=== PATIENT | female | born 1945 | race Caucasian/White ===

== ENCOUNTER 2016-12-15 11:06 | Inpatient (IN) | payer MEDICARE ==
[~2016-12-15] VITALS: Ht 160 cm; Wt 78.0 kg
[~2016-12-15 11:06] MED LIST: GLIP5 PO; LORT5TAB PO; METF-324 PO
[2016-12-15 11:09] VITALS: BP 194/89; PULSE 108; RESP 20; TEMP 99.3; O2SAT 96
[2016-12-15] MEDS ORDERED: ONDANSETRON HCL 4 MG/2 ML VIAL IV PUSH ONE ×2 (12:00→13:15)
[2016-12-15] MEDS ORDERED: PROPOFOL 200 MG/20 ML AMP IV ONE (12:00)
--- NOTE | 2016-12-15 12:59 | RADRPT ---
EXAM DATE/TIME: 12/15/2016 12:25 [facility] COMPARISON: No previous studies available for comparison. INDICATIONS : Left foot pain, swelling, open sores, and inflammation. MEDICAL HISTORY : None. SURGICAL HISTORY : None. ENCOUNTER: Initial ACUITY: 2 weeks PAIN SCORE: 8/10 LOCATION: Left foot FINDINGS: AP, lateral and oblique views of the left foot were obtained and demonstrate diffuse soft tissue swel ling with numerous scattered gas bubbles mainly in the volar soft tissues of the mid and forefoot. Th ere are gas bubbles in the dorsum of the distal foot as well. There are multiple calcifications along the medial mid foot. There is no definite fracture or destructive change. Osteoarthritic changes are noted and there is mild osteopenia. There is a small spur off the inferior calcaneus. Vascular calci fications are present. CONCLUSION: 1. Soft tissue swelling in extensive gas in the soft tissues consistent with the known infection. 2. No definite destructive change or osteomyelitis. 3. Osteoarthritic change. Yousuf Walton MD on December 15, 2016 at 12:54 Board Certified Radiologist. This report was verified electronically.
[2016-12-15] MEDS ORDERED: SODIUM CHLOR 0.9% 1000 ML INJ 1,000 ML IV SCH ×2 (13:07→13:12)
[2016-12-15 13:08] LABS: ALT (GPT) 12 U/L (10-53); ANION GAP 17 MEQ/L (5-15); AST (GOT) 15 U/L (15-37); BICARBONATE 21.4 MEQ/L (21.0-32.0); BLOOD UREA NITROGEN 10 MG/DL (7-18); CHLORIDE 94 MEQ/L (98-107); GLOMERULAR FILTRATION RATE 125 ML/MIN (>89); SODIUM (NA) 132 MEQ/L (136-145)
[2016-12-15 13:10] LABS: POTASSIUM 2.9 MEQ/L (3.5-5.1)
[2016-12-15 13:11] LABS: BASOPHIL % 0.2 % (0.0-2.0); HEMATOCRIT 36.9 % (35.0-46.0); LYMPHOCYTE # 0.9 TH/MM3 (1.0-4.8); MEAN CELL VOLUME 82.5 FL (80.0-100.0); MEAN CORPUSCULAR HEMOGLOBIN 28.1 PG (27.0-34.0); MEAN CORPUSCULAR HGB CONC 34.1 % (32.0-36.0); MONO % 6.6 % (0.0-8.0); NEUT % 89.2 % (16.0-70.0); PLATELET COUNT 348 TH/MM3 (150-450); RED BLOOD COUNT 4.47 MIL/MM3 (4.00-5.30); RED CELL DISTRIBUTION WIDTH 13.7 % (11.6-17.2); WHITE BLOOD COUNT 22.4 TH/MM3 (4.0-11.0)
--- NOTE | 2016-12-15 13:11 | PD ---
HPI Chief Complaint: Injury Time Seen by Provider: 13:05 Travel History International Travel<30 days: No Contact w/Intl Traveler<30days: No Traveled to known affect area: No History of Present Illness HPI This is a 70-year-old female who presents for evaluation of left foot pain. She has had progressive pain, redness, swelling left foot for the past 2 weeks. She reports areas of blistering, drainage with foul smelling discharge. She denies any injury to the foot, no puncture wounds. She has been trying to keep the area clean by placing Neosporin and bandages on the foot. She has had occasional chills but she has not checked her temperature. She has no outside follow-up, no primary care physician. She lives alone according to her friend who is at bedside. She reports that she "procrastinated" in regards to infection. She endorses a history of "borderline diabetes" and denies any other significant past medical history. No other complaints. PFSH Past Medical History Blood Disorders: No Depression: Yes Cancer: No Diabetes: Yes Endocrine: No Genitourinary: No Hypertension: Yes Immune Disorder: Yes (MALARIA CHILDHOOD) Musculoskeletal: No Neurologic: No Respiratory: No Menopausal: Yes Past Surgical History Abdominal Surgery: Yes (GALLBLADDER) AICD: No Cholecystectomy: Yes Joint Replacement: No Pacemaker: No Social History Alcohol Use: No Tobacco Use: No Substance Use: No Allergies-Medications (Allergen,Severity, Reaction): Coded Allergies: Codeine (Verified Allergy, Severe, 03/31/08) Reported Meds & Prescriptions Reported Meds & Active Scripts Active No Active Prescriptions or Reported Medications Review of Systems Except as stated in HPI: all other systems reviewed are Neg Physical Exam Narrative GENERAL: This is a well-developed well-nourished female in no acute distress SKIN: Warm and dry. Examination of the left leg reveals marked erythema, soft tissue swelling to the left foot. There is a large ulcerated foul-smelling wound on the medial aspect of the left foot which is draining purulent discharge. Additional smaller ulcers are noted on the foot. There is no proximal streaking, no inguinal lymphadenopathy. HEAD: Atraumatic. Normocephalic. EYES: Pupils equal and round. No scleral icterus. No injection or drainage. ENT: No nasal bleeding or discharge. Mucous membranes pink and moist. NECK: Trachea midline. No JVD. CARDIOVASCULAR: Regular rate and rhythm. No murmur appreciated. RESPIRATORY: No accessory muscle use. Clear to auscultation. Breath sounds equal bilaterally. GASTROINTESTINAL: Abdomen soft, non-tender, nondistended. Hepatic and splenic margins not palpable. MUSCULOSKELETAL: No obvious deformities. Skin as noted above. Full range of motion of the lower extremities. Lower x-ray pulses are faintly palpable bilaterally however the feet are warm and the left dorsalis pedis and posterior tibial pulses are readily dopplerable. NEUROLOGICAL: Awake and alert. No obvious cranial nerve deficits. Motor grossly within normal limits. Normal speech. Data Data Last Documented VS Vital Signs Date Time Temp Pulse Resp B/P Pulse Ox O2 Delivery O2 Flow Rate FiO2 12/15/16 15:40 20 12/15/16 13:00 Room Air 12/15/16 11:09 99.3 108 194/89 96 Orders Comprehensive Metabolic Panel (12/15/16 12:22) Basic Metabolic Panel (Bmp) (12/15/16 12:22) Foot, Complete ([id number]) (12/15/16 ) Westergren Sedimentation Rate (12/15/16 12:22) C-Reactive Protein (Crp) (12/15/16 12:22) Complete Blood Count With Diff (12/15/16 12:56) Lactic Acid Sepsis Protocol (12/15/16 13:07) Blood Culture (12/15/16 13:07) Wound Culture And Gram Stain (12/15/16 13:07) Iv Access Insert/Monitor (12/15/16 13:07) Sodium Chlor 0.9% 1000 Ml Inj (Ns 1000 M (12/15/16 13:07) Morphine Inj (Morphine Inj) (12/15/16 13:15) Ondansetron Inj (Zofran Inj) (12/15/16 13:15) Vancomycin Inj (Vancomycin Inj) (12/15/16 13:15) Piperacil-Tazo 3.375 Gm Premix (Zosyn 3. (12/15/16 13:15) Beta Hydroxybutyrate (Acetone) (12/15/16 13:11) Sodium Chlor 0.9% 1000 Ml Inj (Ns 1000 M (12/15/16 13:12) Electrocardiogram (12/15/16 ) Ecg Monitoring (12/15/16 13:16) Potassium Chloride (Kcl) (12/15/16 13:30) Ampicillin-Sulbactam Inj (Unasyn Inj) (12/15/16 13:30) Clindamycin Inj (Cleocin Inj) (12/15/16 13:30) Mri Foot W&W/O Contrast (12/15/16 13:25) Blood Gas Venous (Vbg) (12/15/16 13:25) Potassium Chlor 10 Meq Premix (Kcl 10 Me (12/15/16 13:30) Iv Access Insert/Monitor (12/15/16 13:29) Gadodiamide Pf Inj (Omniscan Pf Inj) (12/15/16 14:35) Medical Practice Manager / Telemetry GURDEEP.Q8H (12/15/16 15:38) ^ Insert Iv (12/15/16 15:38) Sodium Chlor 0.9% 1000 Ml Inj (Ns 1000 M (12/15/16 15:38) Dext 5%-Nacl 0.9% 1000 Ml Inj (D5w-Ns 10 (12/15/16 15:38) Insulin Regular (Iv Infusion) (Novolin R (12/15/16 15:45) Potassium Chlor 40 Meq Premix (Kcl 40 Me (12/15/16 15:45) Potassium Chlor 40 Meq Premix (Kcl 40 Me (12/15/16 15:45) Potassium Chlor 20 Meq Premix (Kcl 20 Me (12/15/16 15:45) Potassium Chlor 20 Meq Premix (Kcl 20 Me (12/15/16 15:45) Potassium Chlor 20 Meq Premix (Kcl 20 Me (12/15/16 15:45) Potassium Chlor 20 Meq Premix (Kcl 20 Me (12/15/16 15:45) Potassium Chlor 20 Meq Premix (Kcl 20 Me (12/15/16 15:45) Potassium Chlor 20 Meq Premix (Kcl 20 Me (12/15/16 15:45) Sodium Bicarbonate 8.4% Inj (Sodium Bica (12/15/16 15:45) Sodium Bicarbonate 8.4% Inj (Sodium Bica (12/15/16 15:45) Sodium Phosphate Inj (Sodium Phosphate I (12/15/16 15:45) Hemoglobin (Hgb) A1c (12/15/16 15:38) Urinalysis - C+S If Indicated (12/15/16 15:38) Basic Metabolic Panel (Bmp) (12/15/16 20:38) Basic Metabolic Panel (Bmp) (12/16/16 02:38) Basic Metabolic Panel (Bmp) (12/16/16 08:38) Basic Metabolic Panel (Bmp) (12/16/16 14:38) Magnesium (Mg) (12/15/16 20:38) Magnesium (Mg) (12/16/16 02:38) Magnesium (Mg) (12/16/16 08:38) Magnesium (Mg) (12/16/16 14:38) Phosphorus (Po4) (12/15/16 20:38) Phosphorus (Po4) (12/16/16 02:38) Phosphorus (Po4) (12/16/16 08:38) Phosphorus (Po4) (12/16/16 14:38) Beta Hydroxybutyrate (Acetone) (12/16/16 02:38) Beta Hydroxybutyrate (Acetone) (12/16/16 14:38) Insulin Human Regular Inj (Novolin R Inj (12/15/16 15:45) Admit Order (Ed Use Only) (12/15/16 16:11) Consult Podiatry (12/15/16 ) Labs Laboratory Tests Test 12/15/16 12/15/16 12/15/16 12:28 13:40 13:41 White Blood Count 22.4 TH/MM3 Red Blood Count 4.47 MIL/MM3 Hemoglobin 12.6 GM/DL Hematocrit 36.9 % Mean Corpuscular Volume 82.5 FL Mean Corpuscular Hemoglobin 28.1 PG Mean Corpuscular Hemoglobin 34.1 % Concent Red Cell Distribution Width 13.7 % Platelet Count 348 TH/MM3 Mean Platelet Volume 9.0 FL Neutrophils (%) (Auto) 89.2 % Lymphocytes (%) (Auto) 4.0 % Monocytes (%) (Auto) 6.6 % Eosinophils (%) (Auto) 0.0 % Basophils (%) (Auto) 0.2 % Neutrophils # (Auto) 20.0 TH/MM3 Lymphocytes # (Auto) 0.9 TH/MM3 Monocytes # (Auto) 1.5 TH/MM3 Eosinophils # (Auto) 0.0 TH/MM3 Basophils # (Auto) 0.0 TH/MM3 CBC Comment AUTO DIFF Differential Total Cells 100 Counted Neutrophils % (Manual) 88 % Band Neutrophils % 3 % Lymphocytes % 5 % Monocytes % 3 % Neutrophils # (Manual) 20.6 TH/MM3 Myelocytes 1 % Differential Comment FINAL DIFF MANUAL Platelet Estimate NORMAL Platelet Morphology Comment NORMAL Red Cell Morphology Comment NORMAL Erythrocyte Sedimentation Rate 40 mm/hr Sodium Level 132 MEQ/L Potassium Level 2.9 MEQ/L Chloride Level 94 MEQ/L Carbon Dioxide Level 21.4 MEQ/L Anion Gap 17 MEQ/L Blood Urea Nitrogen 10 MG/DL Creatinine 0.49 MG/DL Estimat Glomerular Filtration 125 ML/MIN Rate Random Glucose 246 MG/DL Calcium Level 9.2 MG/DL Phosphorus Level 2.4 MG/DL Magnesium Level 2.1 MG/DL Total Bilirubin 0.9 MG/DL Aspartate Amino Transf 15 U/L (AST/SGOT) Alanine Aminotransferase 12 U/L (ALT/SGPT) Alkaline Phosphatase 168 U/L C-Reactive Protein 25.50 MG/DL Total Protein 7.4 GM/DL Albumin 2.6 GM/DL B-Hydroxybutyrate 5.62 MMOL/L Lactic Acid Level 1.5 mmol/L Blood Gas Puncture Site SWAN BESSIE LINE Blood Gas Patient Temperature 98.6 Venous Blood pH 7.39 Venous Blood Partial Pressure 35 mmHg CO2 Venous Blood Partial Pressure 30 mmHg O2 Venous Blood HCO3 20 mmol/L Venous Blood Oxygen Saturation 50 % Venous Blood Oxygen Content 9.1 Vol % Venous Blood Base Excess -3.7 mmol/L Oxygen Delivery Device ROOM AIR Blood Gas Inspired Oxygen 21 % [facility] Medical Decision Making Medical Screen Exam Complete: Yes Emergency Medical Condition: Yes Medical Record Reviewed: Yes Interpretation(s) CBC WBC 22.4 ESR 40 CMP sodium 132 potassium 2.9 and anion gap 17 glucose 246 Differential Diagnosis Osteomyelitis, cellulitis, necrotizing fasciitis, gangrene, peripheral vascular disease Narrative Course 70-year-old female with progressive redness, pain and swelling to the left foot. Examination reveals significant cellulitic changes, heart ulcerated area to the medial left foot which is draining purulent discharge. Initial lab work performed in triage has been sent. IV established, lactic acid, blood cultures , wound culture, beta hydroxybutyrate, bvg has been sent. 2 L IV fluids, IV vancomycin, Unasyn and clindamycin have been ordered. Morphine and Zofran have been ordered. Ultimately the patient will require admission for this significant foot infection. 1325: I immediately paged truss assembler Dr. Nunez and discuss our concern for necrotizing fasciitis versus osteomyelitis and he would like to be called back with the MRI results. The MRI is ordered stat. After the MRI result and I spoke with Dr. Nunez who is coming to evaluate the patient. Her laboratory evaluation does reveal that she is in DKA with an anion gap of 17, beta hydroxybutyrate of 5.62, normal lactic acid, normal bicarbonate, normal pH. She also has sepsis with tachycardia, but blood cell count 22.4. DKA protocol was initiated, insulin bolus was held because the patient is currently hypokalemic. I discussed with the critical care doctor Arden who is agreeable with admission. Sepsis Criteria SIRS Criteria (2 or more): Heart rate over 90 Sepsis Criteria (SIRS+source): Infect source susp/known Criteria Outcome: Meets sepsis criteria Diagnosis Primary Impression: Necrotizing cellulitis Additional Impressions: Osteomyelitis Qualified Code: M86.9 - Osteomyelitis, unspecified site, unspecified type Sepsis Qualified Code: A41.9 - Sepsis, due to unspecified organism DKA (diabetic ketoacidoses) Qualified Code: E13.10 - Diabetic ketoacidosis without coma associated with other specified diabetes mellitus Hypokalemia Admitting Information Admitting Physician Requests: Admit Scripts No Active Prescriptions or Reported Meds Chris Triana December 15, 2016 13:11
[2016-12-15] MEDS ORDERED: VANCOMYCIN INJ 1,000 MG in SODIUM CHLOR 0.9% 250 ML INJ 250 ML IV ONE (13:15)
[2016-12-15] MEDS ORDERED: PIPERACIL-TAZO 3.375 GM PREMIX 50 ML IV ONE (13:15)
[2016-12-15] MEDS ORDERED: MORPHINE SULFATE 4 MG/ML INJ IV PUSH ONE (13:15)
[2016-12-15 13:18] LABS: ALKALINE PHOSPHATASE 168 U/L (45-117); TOTAL BILIRUBIN ADULT 0.9 MG/DL (0.2-1.0)
[2016-12-15 13:19] LABS: HEMO FLAGS AUTO DIFF
--- NOTE | 2016-12-15 13:22 | PD ---
Data Data Last Documented VS Vital Signs Date Time Temp Pulse Resp B/P Pulse Ox O2 Delivery O2 Flow Rate FiO2 12/15/16 13:00 Room Air 12/15/16 11:09 99.3 108 20 194/89 96 Orders Comprehensive Metabolic Panel (12/15/16 12:22) Basic Metabolic Panel (Bmp) (12/15/16 12:22) Foot, Complete ([id number]) (12/15/16 ) Westergren Sedimentation Rate (12/15/16 12:22) C-Reactive Protein (Crp) (12/15/16 12:22) Complete Blood Count With Diff (12/15/16 12:56) Lactic Acid Sepsis Protocol (12/15/16 13:07) Blood Culture (12/15/16 13:07) Wound Culture And Gram Stain (12/15/16 13:07) Iv Access Insert/Monitor (12/15/16 13:07) Sodium Chlor 0.9% 1000 Ml Inj (Ns 1000 M (12/15/16 13:07) Morphine Inj (Morphine Inj) (12/15/16 13:15) Ondansetron Inj (Zofran Inj) (12/15/16 13:15) Vancomycin Inj (Vancomycin Inj) (12/15/16 13:15) Piperacil-Tazo 3.375 Gm Premix (Zosyn 3. (12/15/16 13:15) Beta Hydroxybutyrate (Acetone) (12/15/16 13:11) Sodium Chlor 0.9% 1000 Ml Inj (Ns 1000 M (12/15/16 13:12) Electrocardiogram (12/15/16 ) Ecg Monitoring (12/15/16 13:16) Potassium Chloride (Kcl) (12/15/16 13:30) Ampicillin-Sulbactam Inj (Unasyn Inj) (12/15/16 13:30) Clindamycin Inj (Cleocin Inj) (12/15/16 13:30) Mri Foot W&W/O Contrast (12/15/16 13:25) Blood Gas Venous (Vbg) (12/15/16 13:25) Potassium Chlor 10 Meq Premix (Kcl 10 Me (12/15/16 13:30) Iv Access Insert/Monitor (12/15/16 13:29) Gadodiamide Pf Inj (Omniscan Pf Inj) (12/15/16 14:35) [place] Hold / Telemetry GURDEEP.Q8H (12/15/16 15:38) ^ Insert Iv (12/15/16 15:38) Diet Npo (12/15/16 Dinner) Sodium Chlor 0.9% 1000 Ml Inj (Ns 1000 M (12/15/16 15:38) Dext 5%-Nacl 0.9% 1000 Ml Inj (D5w-Ns 10 (12/15/16 15:38) Insulin Regular (Iv Infusion) (Novolin R (12/15/16 15:45) Potassium Chlor 40 Meq Premix (Kcl 40 Me (12/15/16 15:45) Potassium Chlor 40 Meq Premix (Kcl 40 Me (12/15/16 15:45) Potassium Chlor 20 Meq Premix (Kcl 20 Me (12/15/16 15:45) Potassium Chlor 20 Meq Premix (Kcl 20 Me (12/15/16 15:45) Potassium Chlor 20 Meq Premix (Kcl 20 Me (12/15/16 15:45) Potassium Chlor 20 Meq Premix (Kcl 20 Me (12/15/16 15:45) Potassium Chlor 20 Meq Premix (Kcl 20 Me (12/15/16 15:45) Potassium Chlor 20 Meq Premix (Kcl 20 Me (12/15/16 15:45) Sodium Bicarbonate 8.4% Inj (Sodium Bica (12/15/16 15:45) Sodium Bicarbonate 8.4% Inj (Sodium Bica (12/15/16 15:45) Sodium Phosphate Inj (Sodium Phosphate I (12/15/16 15:45) Hemoglobin (Hgb) A1c (12/15/16 15:38) Urinalysis - C+S If Indicated (12/15/16 15:38) Basic Metabolic Panel (Bmp) (12/15/16 20:38) Basic Metabolic Panel (Bmp) (12/16/16 02:38) Basic Metabolic Panel (Bmp) (12/16/16 08:38) Basic Metabolic Panel (Bmp) (12/16/16 14:38) Magnesium (Mg) (12/15/16 20:38) Magnesium (Mg) (12/16/16 02:38) Magnesium (Mg) (12/16/16 08:38) Magnesium (Mg) (12/16/16 14:38) Phosphorus (Po4) (5/6/17 20:38) Phosphorus (Po4) (12/16/16 02:38) Phosphorus (Po4) (12/16/16 08:38) Phosphorus (Po4) (12/16/16 14:38) Beta Hydroxybutyrate (Acetone) (12/16/16 02:38) Beta Hydroxybutyrate (Acetone) (12/16/16 14:38) Insulin Human Regular Inj (Novolin R Inj (12/15/16 15:45) Admit Order (Ed Use Only) (12/15/16 16:11) Consult Podiatry (12/15/16 ) Labs Laboratory Tests Test 12/15/16 12/15/16 12/15/16 12:28 13:40 13:41 White Blood Count 22.4 TH/MM3 Red Blood Count 4.47 MIL/MM3 Hemoglobin 12.6 GM/DL Hematocrit 36.9 % Mean Corpuscular Volume 82.5 FL Mean Corpuscular Hemoglobin 28.1 PG Mean Corpuscular Hemoglobin 34.1 % Concent Red Cell Distribution Width 13.7 % Platelet Count 348 TH/MM3 Mean Platelet Volume 9.0 FL Neutrophils (%) (Auto) 89.2 % Lymphocytes (%) (Auto) 4.0 % Monocytes (%) (Auto) 6.6 % Eosinophils (%) (Auto) 0.0 % Basophils (%) (Auto) 0.2 % Neutrophils # (Auto) 20.0 TH/MM3 Lymphocytes # (Auto) 0.9 TH/MM3 Monocytes # (Auto) 1.5 TH/MM3 Eosinophils # (Auto) 0.0 TH/MM3 Basophils # (Auto) 0.0 TH/MM3 CBC Comment AUTO DIFF Differential Total Cells 100 Counted Neutrophils % (Manual) 88 % Band Neutrophils % 3 % Lymphocytes % 5 % Monocytes % 3 % Neutrophils # (Manual) 20.6 TH/MM3 Myelocytes 1 % Differential Comment FINAL DIFF MANUAL Platelet Estimate NORMAL Platelet Morphology Comment NORMAL Red Cell Morphology Comment NORMAL Erythrocyte Sedimentation Rate 40 mm/hr Sodium Level 132 MEQ/L Potassium Level 2.9 MEQ/L Chloride Level 94 MEQ/L Carbon Dioxide Level 21.4 MEQ/L Anion Gap 17 MEQ/L Blood Urea Nitrogen 10 MG/DL Creatinine 0.49 MG/DL Estimat Glomerular Filtration 125 ML/MIN Rate Random Glucose 246 MG/DL Calcium Level 9.2 MG/DL Total Bilirubin 0.9 MG/DL Aspartate Amino Transf 15 U/L (AST/SGOT) Alanine Aminotransferase 12 U/L (ALT/SGPT) Alkaline Phosphatase 168 U/L C-Reactive Protein 25.50 MG/DL Total Protein 7.4 GM/DL Albumin 2.6 GM/DL B-Hydroxybutyrate 5.62 MMOL/L Lactic Acid Level 1.5 mmol/L Blood Gas Puncture Site SWAN BESSIE LINE Blood Gas Patient Temperature 98.6 Venous Blood pH 7.39 Venous Blood Partial Pressure 35 mmHg CO2 Venous Blood Partial Pressure 30 mmHg O2 Venous Blood HCO3 20 mmol/L Venous Blood Oxygen Saturation 50 % Venous Blood Oxygen Content 9.1 Vol % Venous Blood Base Excess -3.7 mmol/L Oxygen Delivery Device ROOM AIR Blood Gas Inspired Oxygen 21 % MDM Supervised Visit with JACKELYN: Yes Narrative Course Patient seen and examined by me at 1320. Patient has a very advanced infection of her left foot. My concern is for necrotizing fasciitis. Chris Triana has called and discussed with podiatry at this time Dr. Nunez is in route. An MRI has been ordered. Vancomycin Unasyn and clindamycin of been ordered at this time. Lactic acid is pending. She has obvious need for admission and may need emergent surgery. Labs return and the patient does have some mild DKA, hypokalemia, and sepsis criteria. She was started on multiple antibiotics as above. Dr. Nunez and Dr. Rasheed have arrived at the bedside bladder which to admit the patient. DKA protocol is been ordered. The plan is to take the operating room for procedure with Dr. Nunez. Patient remains in fair condition at this time. Procedures Procedure Narrative Aggregate critical care time was 31 minutes. Time to perform other separately billable procedures was not included in the critical care time. My time did not include minutes spent treating any other patients simultaneously or on activities that did not directly contribute to the patient's treatment. The services I provided to this patient were to treat and/or prevent clinically significant deterioration that could result in: , disability, organ failure, amputation. I provided critical care services requiring my management, as noted below: Chart data review, documentation time, medication orders and management, vital sign assessments/reviewing monitor data, ordering and reviewing lab tests, ordering and interpreting/reviewing x-rays and diagnostic studies, care of the patient and discussion of the patient with the admitting physicians. Diagnosis Primary Impression: Sepsis Qualified Code: A41.9 - Sepsis, due to unspecified organism Additional Impressions: Gas gangrene of foot Osteomyelitis Qualified Code: M86.9 - Osteomyelitis, unspecified site, unspecified type Necrotizing cellulitis DKA (diabetic ketoacidoses) Qualified Code: E13.10 - Diabetic ketoacidosis without coma associated with other specified diabetes mellitus Admitting Information Admitting Physician Requests: Admit Scripts No Active Prescriptions or Reported Meds Condition: Kamaljit Prater MD December 15, 2016 13:22
[2016-12-15] MEDS ORDERED: CLINDAMYCIN INJ 600 MG in SODIUM CHLORIDE 0.9% INJ 100 ML IV ONE (13:30)
[2016-12-15] MEDS ORDERED: POTASSIUM CHLOR 10 MEQ PREMIX 100 ML IV ONE (13:30)
[2016-12-15] MEDS ORDERED: POTASSIUM CHLORIDE 20 MEQ CONTROLLED RELEASE TAB PO ONE (13:30)
[2016-12-15] MEDS ORDERED: AMPICILLIN-SULBACTAM INJ 3 GM in SODIUM CHLORIDE 0.9% INJ 100 ML IV ONE (13:30)
[2016-12-15 13:51] LABS: BLOOD GAS VENOUS BASE EXCESS -3.7 mmol/L (-2-2); BLOOD GAS VENOUS HCO3 20 mmol/L (22-26); BLOOD GAS VENOUS O2 CONTENT 9.1 Vol % (9.0-17.0); BLOOD GAS VENOUS O2 HGB SAT 50 % (70-76); BLOOD GAS VENOUS PCO2 35 mmHg (44-48); BLOOD GAS VENOUS PO2 30 mmHg (35-40); BLOOD GAS VENOUS pH 7.39 (7.360-7.400); CRITICAL VALUE NO; DRAW SITE SWAN GANZ LINE; FIO2 21 %; OXYGEN DEVICE ROOM AIR; STAT YES; TEMP CORR TO 98.6
[2016-12-15 13:59] LABS: BANDS 3 % (0-6); MYELOCYTES 1 % (0-0); NEUTROPHIL # MANUAL DIFF 20.6 TH/MM3 (1.8-7.7); PLATELET ESTIMATE SMEAR NORMAL (NORMAL); PLATELET MORPHOLOGY NORMAL (NORMAL); POLYS (SEG NEUTROPHILS) 88 % (16-70); SCAN/DIFF FINAL DIFF MANUAL; WBC DIFF SAMPLE 100
[2016-12-15] MEDS ORDERED: GADODIAMIDE PF 287 MG/ML 20 ML VIAL (for RAD MRI) IV ONE (14:35)
--- NOTE | 2016-12-15 15:37 | RADRPT ---
EXAM DATE/TIME: 12/15/2016 14:22 [facility] COMPARISON: No previous studies available for comparison. INDICATIONS : Infected left foot. Plantar surface. CONTRAST: 14 cc Omniscan (gadodiamide) IV MEDICAL HISTORY : None. SURGICAL HISTORY : Cholecystectomy. ENCOUNTER: Initial ACUITY: 2 weeks PAIN SCORE: 2/10 LOCATION: Left foot. TECHNIQUE: Multiplanar, multisequence MRI examination was performed without contrast and after the intravenous a dministration of gadolinium. FINDINGS: There is extensive gas in the soft tissues of the foot involving the forefoot between the toes and ex tending proximally to the mid foot predominantly on the plantar aspect. There is soft tissue ulcerati on on the plantar aspect of the foot medially. No drainable fluid collections are present in the foot . These gas collections are associated with extensive soft tissue enhancement and edema characteristi c of a necrotizing cellulitis. In addition, there is abnormal marrow edema and enhancement of the hea d of the fifth metatarsal and to a lesser extent of the fourth metatarsal characteristic of osteomyel itis. There is also abnormal marrow signal in the proximal phalanx of the fifth toe, probably osteomy elitis. Abnormal marrow signal middle phalanx second toe is probably related to remote fracture when correlat ed with plain film. 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 CONCLUSION: 1. Soft tissue ulceration and numerous gas collections in the soft tissues of the forefoot and midfoo t most characteristic of a necrotizing type cellulitis. 2. Osteomyelitis of the distal fourth and fifth metatarsals and possibly the proximal phalanx of the fifth toe. Remote fracture second toe. 3. No drainable fluid collections within the foot. Blair Franklin MD on December 15, 2016 at 15:27 Board Certified Radiologist. This report was verified electronically.
[2016-12-15] MEDS ORDERED: SODIUM PHOSPHATE INJ 15 MMOL in SODIUM CHLORIDE 0.9% INJ 100 ML IV PRN ×2 (15:45→17:00)
[2016-12-15] MEDS ORDERED: SODIUM BICARBONATE 8.4% SOLN 50 MEQ/50 ML VIAL IV PRN ×2 (15:45)
[2016-12-15] MEDS ORDERED: POTASSIUM CHLOR 40 MEQ PREMIX 100 ML IV PRN ×2 (15:45)
[2016-12-15] MEDS ORDERED: INSULIN HUMAN REGULAR 1,000 UNITS/10 ML VIAL IV PUSH ONE (15:45)
[2016-12-15] MEDS ORDERED: POTASSIUM CHLOR 20 MEQ PREMIX 100 ML IV PRN ×9 (15:45→17:00)
[2016-12-15] MEDS ORDERED: INSULIN REGULAR (IV INFUSION) 100 UNITS in SODIUM CHLORIDE 0.9% INJ 99 ML IV SCH (15:45)
[2016-12-15] MEDS: SODIUM CHLOR 0.9% 1000 ML INJ 1,000 ML IV SCH ×4 (16:30→22:33)
[2016-12-15] MEDS: POTASSIUM CHLOR 20 MEQ PREMIX 100 ML IV PRN ×3 (16:31→22:07)
--- NOTE | 2016-12-15 16:47 | PD.POD.CON ---
Patient Intake Chief Complaint Diabetic foot infection left foot Consult Requested by [facility] emergency department doctors Reason for Consult Surgical management of gas gangrene left foot Primary Care Physician No Primary Care Physician History of Present Illness Patient is a 70-year-old diabetic female who presented to the emergency department at [place] with a hot red swollen foot. She states about a month ago she noticed an open area that was draining on her foot. She did not treat it. The area has gotten worse. She is not been feeling well and came to the ED today. She is currently in DKA. With a white count of greater than 20 to. Radiographs and MRI shows gas gangrene of the soft tissue of the foot. The MRI also shows possible osteomyelitis of the fourth and fifth metatarsal. Coded Allergies: Codeine (Verified Allergy, Severe, 03/31/08) Preferred Language to Discuss: Romanian Barriers to Learning: None Teaching Method: Discussion Vital Signs Date Time Temp Pulse Resp B/P Pulse Ox O2 Delivery O2 Flow Rate FiO2 12/15/16 13:00 Room Air 12/15/16 11:09 99.3 108 20 194/89 96 Room Air Pain scale used: 0-10 numeric scale Pain score: 2 Medications Current Medications Sodium Chloride (NS 1000 ml Inj) 1,000 ml @ 1,000 mls/hr Q1H IV Last administered on 12/15/16 15:29; Start 12/15/16 at 13:07; Stop 12/15/16 at 14:06; Status DC Morphine Sulfate (Morphine Inj) 4 mg ONCE ONCE IV PUSH Last administered on 15:30; Start 12/15/16 at 13:15; Stop 12/15/16 at 13:16; Status DC Ondansetron HCl 4 mg 4 mg ONCE ONCE IV PUSH Last administered on 12/15/16 15: 29; Start 12/15/16 at 13:15; Stop 12/15/16 at 13:16; Status DC Vancomycin HCl 1000 mg/Sodium Chloride 250 ml @ 250 mls/hr ONCE ONCE IV ; Start 12/15/16 at 13:15; Stop 12/15/16 at 14:14; Status DC Piperacillin Sod/ Tazobactam Sod 50 ml @ 100 mls/hr ONCE ONCE IV ; Start at 13:15; Stop 12/15/16 at 13:23; Status DC Sodium Chloride (NS 1000 ml Inj) 1,000 ml @ 1,000 mls/hr Q1H IV Last administered on 12/15/16 15:29; Start 12/15/16 at 13:12; Stop 12/15/16 at 14:11; Status DC Potassium Chloride 40 meq 40 meq ONCE ONCE PO Last administered on 12/15/16 15 :20; Start 12/15/16 at 13:30; Stop 12/15/16 at 13:31; Status DC Ampicillin Sodium/ Sulbactam Sodium 3 gm/Sodium Chloride 100 ml @ 200 mls/hr ONCE ONCE IV Last administered on 12/15/16 15:05; Start 12/15/16 at 13:30; Stop 12/15/16 at 13:59; Status DC Clindamycin Phosphate 600 mg/ Sodium Chloride 104 ml @ 208 mls/hr ONCE ONCE IV Last administered on 12/15/16 15:30; Start 12/15/16 at 13:30; Stop 12/15/16 at 13:59; Status DC Potassium Chloride (KCl 10 Meq Premix Inj) 100 ml @ 100 mls/hr BOLUS ONCE IV Last administered on 12/15/16 15:50; Start 12/15/16 at 13:30; Stop 12/15/16 at 15: 55; Status DC Gadodiamide 14 ml 14 ml STK-MED ONCE IV Last administered on 12/15/16 14:35; Start 12/15/16 at 14:35; Stop 12/15/16 at 14:36; Status DC Sodium Chloride 1,000 ml @ 250 mls/hr Q4H IV ; Start 12/15/16 at 15:38 Dextrose/Sodium Chloride 1,000 ml @ 200 mls/hr Q5H IV ; Start 12/15/16 at 15:38 Insulin Human Regular 100 units/ Sodium Chloride 100 ml @ 0 mls/hr TITRATE IV ; Start 12/15/16 at 15:45 Potassium Chloride 100 ml @ 100 mls/hr Q1H PRN IV SEE LABEL COMMENTS; Start at 15:45 Potassium Chloride 100 ml @ 50 mls/hr Q2H PRN IV SEE LABEL COMMENTS; Start 12/15/16 at 15:45 Potassium Chloride 100 ml @ 100 mls/hr Q1H PRN IV SEE LABEL COMMENTS Last administered on 5/6/17at 16:31; Start 12/15/16 at 15:45 Potassium Chloride 100 ml @ 100 mls/hr Q1H PRN IV SEE LABEL COMMENTS; Start at 15:45 Potassium Chloride 100 ml @ 50 mls/hr Q2H PRN IV SEE LABEL COMMENTS; Start 12/15/16 at 15:45 Potassium Chloride 100 ml @ 50 mls/hr Q2H PRN IV SEE LABEL COMMENTS; Start 12/15/16 at 15:45 Potassium Chloride 100 ml @ 50 mls/hr Q2H PRN IV SEE LABEL COMMENTS; Start 12/15/16 at 15:45 Potassium Chloride (KCl 20 Meq Premix Inj) 100 ml @ 50 mls/hr Q2H PRN IV SEE LABEL COMMENTS; Start 12/15/16 at 15:45 Sodium Bicarbonate (Sodium Bicarbonate 8.4% Inj) 100 meq UNSCH PRN IV SEE LABEL COMMENTS; Start 12/15/16 at 15:45 Sodium Bicarbonate 50 meq 50 meq UNSCH PRN IV SEE LABEL COMMENTS; Start at 15:45 Sodium Phosphate/ Sodium Chloride (Sodium Phosphate Inj/NS Inj) 105 ml @ 25 mls /hr UNSCH PRN IV SEE LABEL COMMENTS; Start 12/15/16 at 15:45 Insulin Human Regular (NovoLIN R INJ) 5 units BOLUS ONCE IV PUSH ; Start at 15:45; Stop 12/15/16 at 15:51; Status DC Past, Family & Social History Past Medical History PFSH Reviewed: Yes Endocrine: REPORTS HX OF: Diabetes mellitus Review of Systems Constitutional: COMPLAINS OF: Pain Musculoskeletal: COMPLAINS OF: Joint pain/swell/dysarthr, Deformaties Exam-Podiatry Constitutional General appearance: uncomfortable Nutritional status: normal Orientation: alert and oriented x3 Dermatological Exam Skin Temp - Right: Within Normal Limits Skin Texture - Right: Within Normal Limits Skin Elasticity - Right: Within Normal Limits Skin Tugor - Right: Within Normal Limits Hair Growth - Right: Within Normal Limits Pigmentation - Right: Within Normal Limits Skin Temp - Left: Hot Skin Texture - Left: Shiny Skin Elasticity - Left: Abnormal Skin Tugor - Left: Abnormal Hair Growth - Left: Absent Pigmentation - Left: Abnormal Present on left: Abscess, Vesicles Ulcers: Location/Measurements Patient has multiple foul-smelling ulcerations of the left foot. There is tense bulla in the arch of the foot. Vascular/Lymphatic Exam Details Unable to feel pulses because of the swelling and fasciitis Neurologic Exam Details Deferred Lab and Radiology Results Laboratory Laboratory Tests Test 12/15/16 12:28 White Blood Count 22.4 TH/MM3 Red Blood Count 4.47 MIL/MM3 Hemoglobin 12.6 GM/DL Hematocrit 36.9 % Mean Corpuscular Volume 82.5 FL Mean Corpuscular Hemoglobin 28.1 PG Mean Corpuscular Hemoglobin 34.1 % Concent Red Cell Distribution Width 13.7 % Platelet Count 348 TH/MM3 Mean Platelet Volume 9.0 FL Neutrophils (%) (Auto) 89.2 % Lymphocytes (%) (Auto) 4.0 % Monocytes (%) (Auto) 6.6 % Eosinophils (%) (Auto) 0.0 % Basophils (%) (Auto) 0.2 % Neutrophils # (Auto) 20.0 TH/MM3 Lymphocytes # (Auto) 0.9 TH/MM3 Monocytes # (Auto) 1.5 TH/MM3 Eosinophils # (Auto) 0.0 TH/MM3 Basophils # (Auto) 0.0 TH/MM3 CBC Comment AUTO DIFF Differential Total Cells 100 Counted Neutrophils % (Manual) 88 % Band Neutrophils % 3 % Lymphocytes % 5 % Monocytes % 3 % Neutrophils # (Manual) 20.6 TH/MM3 Myelocytes 1 % Differential Comment FINAL DIFF MANUAL Platelet Estimate NORMAL Platelet Morphology Comment NORMAL Red Cell Morphology Comment NORMAL Erythrocyte Sedimentation Rate 40 mm/hr Laboratory Tests Test 12/15/16 12/15/16 12:28 13:40 Sodium Level 132 MEQ/L Potassium Level 2.9 MEQ/L Chloride Level 94 MEQ/L Carbon Dioxide Level 21.4 MEQ/L Anion Gap 17 MEQ/L Blood Urea Nitrogen 10 MG/DL Creatinine 0.49 MG/DL Estimat Glomerular Filtration 125 ML/MIN Rate Random Glucose 246 MG/DL Calcium Level 9.2 MG/DL Total Bilirubin 0.9 MG/DL Aspartate Amino Transf 15 U/L (AST/SGOT) Alanine Aminotransferase 12 U/L (ALT/SGPT) Alkaline Phosphatase 168 U/L C-Reactive Protein 25.50 MG/DL Total Protein 7.4 GM/DL Albumin 2.6 GM/DL Lactic Acid Level 1.5 mmol/L Microbiology Date/Time Procedure Status Source Growth 12/15/16 13:30 Gram Stain - Final Resulted Wound Foot 12/15/16 13:30 Wound Culture Resulted Wound Foot Pending 12/15/16 13:40 Aerobic Blood Culture Received Blood Peripheral Pending 12/15/16 13:40 Anaerobic Blood Culture Received Blood Peripheral Pending 12/15/16 13:40 Aerobic Blood Culture Received Blood Peripheral Pending 12/15/16 13:40 Anaerobic Blood Culture Received Blood Peripheral Pending Radiology Last Impressions Foot MRI 12/15/16 1325 Signed Impressions: Service Date/Time: Thursday, December 15, 2016 14:22 - CONCLUSION: 1. Soft tissue ulceration and numerous gas collections in the soft tissues of the forefoot and midfoot most characteristic of a necrotizing type cellulitis. 2. Osteomyelitis of the distal fourth and fifth metatarsals and possibly the proximal phalanx of the fifth toe. Remote fracture second toe. 3. No drainable fluid collections within the foot. Blair Franklin MD Foot X-Ray 12/15/16 0000 Signed Impressions: Service Date/Time: Thursday, December 15, 2016 12:25 - CONCLUSION: 1. Soft tissue swelling in extensive gas in the soft tissues consistent with the known infection. 2. No definite destructive change or osteomyelitis. 3. Osteoarthritic change. Yousuf Walton MD Assessment/Plan Problem List: (1) Necrotizing cellulitis Status: Acute (2) Osteomyelitis Status: Acute (3) Sepsis Status: Acute (4) DKA (diabetic ketoacidoses) Status: Acute (5) Abscess of foot Status: Acute (6) Diabetic infection of left foot Status: Acute (7) Gas gangrene of foot Status: Acute Additional Plans & Procedures PLAN: Patient will be taken to the OR immediately for incision and drainage of gas gangrene and necrotizing fasciitis. We will address the possibilities of the fourth and fifth metatarsal osteomyelitis later. She is at high risk for amputation at the below the knee level. Preop consent orders written. Patient to be admitted to intensive care unit following surgery Problem Qualifiers (1) Osteomyelitis: Qualified Code: M86.9 - Osteomyelitis, unspecified site, unspecified type (2) Sepsis: Qualified Code: A41.9 - Sepsis, due to unspecified organism (3) DKA (diabetic ketoacidoses): Qualified Code: E13.10 - Diabetic ketoacidosis without coma associated with other specified diabetes mellitus Oliver Nunez DPM December 15, 2016 16:47
[2016-12-15 16:55] VITALS: BP 145/70; PULSE 96; RESP 20; TEMP 98.3; O2SAT 97
[2016-12-15] MEDS ORDERED: MISCELLANEOUS NURSING INFORMATION XX SCH (17:00)
[2016-12-15] MEDS ORDERED: MAGNESIUM OXIDE 400 MG TAB PO PRN (17:00)
[2016-12-15] MEDS ORDERED: Vancomycin Consult Pharmacy 1 EA OTHER SCH (17:00)
[2016-12-15] MEDS ORDERED: LABETALOL HCL 100 MG/20 ML VIAL IV PUSH PRN (17:00)
[2016-12-15] MEDS ORDERED: ACETAMINOPHEN 325 MG TAB PO PRN (17:00)
[2016-12-15] MEDS ORDERED: MAGNESIUM SULFATE INJ 4 GM in SODIUM CHLORIDE 0.9% INJ 92 ML IV PRN (17:00)
[2016-12-15] MEDS ORDERED: hydrALAZINE HCL 20 MG/ML VIAL IV PUSH PRN (17:00)
[2016-12-15] MEDS ORDERED: RESP: ALBUTEROL 2.5 MG/3 ML NEB (PRN) INH (17:00)
[2016-12-15] MEDS ORDERED: CHLORHEXIDINE GLUCONATE 2 % 1 PACK (2 CLOTHS) TOP PRN (17:00)
[2016-12-15] MEDS ORDERED: SODIUM CHLORIDE 0.9% FLUSH 10 ML FLUSH IV FLUSH PRN ×2 (17:00→18:30)
[2016-12-15] MEDS ORDERED: POTASSIUM PHOSPHATE MONOBASIC 500 MG TAB PO PRN (17:00)
[2016-12-15] MEDS ORDERED: SODIUM PHOSPHATE INJ 30 MMOL in SODIUM CHLOR 0.9% 250 ML INJ 240 ML IV PRN (17:00)
[2016-12-15] MEDS ORDERED: POTASSIUM PHOSPHATE MONOBASIC 500 MG TAB PO/TUBE PRN (17:00)
[2016-12-15] MEDS ORDERED: MAGNESIUM SULFATE INJ 2 GM in SODIUM CHLORIDE 0.9% INJ 96 ML IV PRN (17:00)
--- NOTE | 2016-12-15 17:02 | HHI.HP ---
[facility] Service Critical Care Medicine Primary Care Physician No Primary Care Physician Admission Diagnosis DKA, sepsis, necrotizing cellulitis, osteomyelitis Diagnosis: (1) Diabetic infection of left foot Diagnosis: Principal (2) Gas gangrene of foot Diagnosis: Principal (3) Necrotizing cellulitis Diagnosis: Principal (4) Osteomyelitis Diagnosis: Principal (5) DKA (diabetic ketoacidoses) Diagnosis: Principal (6) Hypokalemia Diagnosis: Principal (7) Hypertension Diagnosis: Principal (8) Leukocytosis (leucocytosis) Diagnosis: Principal (9) Sepsis Diagnosis: Principal Chief Complaint: Left foot pain Travel History International Travel<30 Days: No Contact w/Intl Traveler <30 Da: No Traveled to Known Affected Are: No Sepsis Criteria SIRS Criteria (2 or more): WBC > 12801, < 4000 or > 10% bands Sepsis Criteria (SIRS+source): Infect source susp/known History of Present Illness 70-year-old female. Date of admission 12/15/2016. Past medical history includes hypertension, diabetes mellitus and history of rheumatic fever. Approximately one month ago patient had an open sore to the medial aspect upper left foot. She has not had this treated. She has been feeling weak and is a very poor. The past several days. He has become more red and foul-smelling. She presented [facility] to [facility] for evaluation treatment. In the ED, MRI of the left foot revealed necrotizing fasciitis with gas/ cellulitis of likely osteomyelitis of the distal fourth and fifth metatarsals of the left foot. She received vancomycin, clindamycin and Unasyn. Wound culture and blood cultures were performed. Podiatry is consulted and plan to take the or for debridement. EKG and chest x-ray pending. Coags pending. Also, elevated anion gap 17. Elevated beta hydroxybutyrate 5.6. Potassium 2.9. Potassium currently replaced. DKA protocol initiated with 5 units IV insulin followed by insulin drip Review of Systems Constitutional: COMPLAINS OF: Fatigue, Fever, Weight loss, DENIES: Weight gain Endocrine: DENIES: Heat/cold intolerance, Polydipsia Eyes: DENIES: Blurred vision, Double Vision Ears, nose, mouth, throat: DENIES: Tinnitus, Ear Pain Respiratory: DENIES: Apneas, Sputum production, Shortness of breath Cardiovascular: DENIES: Chest pain Gastrointestinal: DENIES: Abdominal pain Genitourinary: DENIES: Urinary frequency Musculoskeletal: COMPLAINS OF: Joint pain, DENIES: Back pain Integumentary: COMPLAINS OF: Abnormal pigmentation, DENIES: Rash Hematologic/lymphatic: DENIES: Bruising Immunologic/allergic: DENIES: Eczema Neurologic: DENIES: Abnormal gait Psychiatric: COMPLAINS OF: Anxiety, DENIES: Confusion Past Family Social History Allergies: Coded Allergies: Codeine (Verified Allergy, Severe, 03/31/08) Past Medical History Diabetes mellitus Hypertension History of rheumatic fever Past Surgical History Cholecystectomy Reported Medications Arlin-D when necessary Active Ordered Medications Reviewed in EMR Family History Father with lung cancer. Mother with coronary disease. Grandfather diabetes. Social History Quit tobacco in 1997. Occasional wine. No IV drug use. Physical Exam Vital Signs Vital Signs Date Time Temp Pulse Resp B/P Pulse Ox O2 Delivery O2 Flow Rate FiO2 12/15/16 13:00 Room Air 12/15/16 11:09 99.3 108 20 194/89 96 Room Air Physical Exam GENERAL: 70-year-old female in bed in no acute distress SKIN: Warm and dry. Necrosis medial aspect of left foot, fourth metatarsal with erythema up to the ankle left foot HEAD: Atraumatic. Normocephalic. EYES: Pupils equal and round. No scleral icterus. No injection or drainage. ENT: No nasal bleeding or discharge. Mucous membranes pink and moist. NECK: Trachea midline. No JVD. CARDIOVASCULAR: Regular rate and rhythm. S1, S2. No S4 without murmur RESPIRATORY: Clear to auscultation. Breath sounds equal bilaterally. GASTROINTESTINAL: Abdomen soft, non-tender, nondistended. Hepatic and splenic margins not palpable. MUSCULOSKELETAL: Extremities as above with skin. NEUROLOGICAL: Awake and alert. No obvious cranial nerve deficits. Motor grossly within normal limits. Five out of 5 muscle strength in the arms and legs. Normal speech. PSYCHIATRIC: Appropriate mood and affect; insight and judgment normal. Laboratory Laboratory Tests Test 12/15/16 12/15/16 12/15/16 12:28 13:40 13:41 White Blood Count 22.4 Red Blood Count 4.47 Hemoglobin 12.6 Hematocrit 36.9 Mean Corpuscular Volume 82.5 Mean Corpuscular Hemoglobin 28.1 Mean Corpuscular Hemoglobin 34.1 Concent Red Cell Distribution Width 13.7 Platelet Count 348 Mean Platelet Volume 9.0 Neutrophils (%) (Auto) 89.2 Lymphocytes (%) (Auto) 4.0 Monocytes (%) (Auto) 6.6 Eosinophils (%) (Auto) 0.0 Basophils (%) (Auto) 0.2 Neutrophils # (Auto) 20.0 Lymphocytes # (Auto) 0.9 Monocytes # (Auto) 1.5 Eosinophils # (Auto) 0.0 Basophils # (Auto) 0.0 CBC Comment AUTO DIFF Differential Total Cells 100 Counted Neutrophils % (Manual) 88 Band Neutrophils % 3 Lymphocytes % 5 Monocytes % 3 Neutrophils # (Manual) 20.6 Myelocytes 1 Differential Comment FINAL DIFF MANUAL Platelet Estimate NORMAL Platelet Morphology Comment NORMAL Red Cell Morphology Comment NORMAL Erythrocyte Sedimentation Rate 40 Sodium Level 132 Potassium Level 2.9 Chloride Level 94 Carbon Dioxide Level 21.4 Anion Gap 17 Blood Urea Nitrogen 10 Creatinine 0.49 Estimat Glomerular Filtration 125 Rate Random Glucose 246 Calcium Level 9.2 Total Bilirubin 0.9 Aspartate Amino Transf 15 (AST/SGOT) Alanine Aminotransferase 12 (ALT/SGPT) Alkaline Phosphatase 168 C-Reactive Protein 25.50 Total Protein 7.4 Albumin 2.6 B-Hydroxybutyrate 5.62 Lactic Acid Level 1.5 Blood Gas Puncture Site SWAN BESSIE LINE Blood Gas Patient Temperature 98.6 Venous Blood pH 7.39 Venous Blood Partial Pressure 35 CO2 Venous Blood Partial Pressure 30 O2 Venous Blood HCO3 20 Venous Blood Oxygen Saturation 50 Venous Blood Oxygen Content 9.1 Venous Blood Base Excess -3.7 Oxygen Delivery Device ROOM AIR Blood Gas Inspired Oxygen 21 Date/Time Procedure Status Source Growth 12/15/16 13:40 Aerobic Blood Culture Received Blood Peripheral Pending 12/15/16 13:40 Anaerobic Blood Culture Received Blood Peripheral Pending 12/15/16 13:30 Gram Stain - Final Resulted Wound Foot 12/15/16 13:30 Wound Culture Resulted Wound Foot Pending Result Diagram: 12/15/16 1228 12/15/16 1228 Imaging Last Impressions Foot MRI 12/15/16 1325 Signed Impressions: Service Date/Time: Thursday, December 15, 2016 14:22 - CONCLUSION: 1. Soft tissue ulceration and numerous gas collections in the soft tissues of the forefoot and midfoot most characteristic of a necrotizing type cellulitis. 2. Osteomyelitis of the distal fourth and fifth metatarsals and possibly the proximal phalanx of the fifth toe. Remote fracture second toe. 3. No drainable fluid collections within the foot. Blair Franklin MD Foot X-Ray 12/15/16 0000 Signed Impressions: Service Date/Time: Thursday, December 15, 2016 12:25 - CONCLUSION: 1. Soft tissue swelling in extensive gas in the soft tissues consistent with the known infection. 2. No definite destructive change or osteomyelitis. 3. Osteoarthritic change. Yousuf Walton MD Septic Shock Reassessment Heart: Regular rate and rhythm Lungs: Clear Skin: Warm, Other Peripheral Pulses: Bounding Right Radial Bounding Left Radial Bounding Right Popliteal Bounding Left Popliteal Bounding Right Dorsalis Pedis Bounding Left Dorsalis Pedis Bounding Right Posterior Tibial Bounding Left Posterior Tibial Capillary Refill: Brisk, <2 seconds Assessment and Plan Assessment and Plan Neuro/Psych: Acetaminophen for fever Morphine for pain management. Patient has allergy to codeine/causes "swelling". Received morphine in ED without complication CV: Hypertension As needed labetalol/hydralazine for elevated blood pressure Currently on DKA protocol with normal saline at 250 cc an hour EKG revealed normal sinus rhythm with normal RI/QRS and QT intervals. Occasional PVCs Resp: Nasal cannula to maintain saturations greater than or equal to 92% Incentive spirometry while awake Chest x-ray pending GI: Patient is currently nothing by mouth Protonix for GI prophylaxis Colace/as needed Senokot for bowel regimen : Celeste will be placed for accurate I's and O's in a critically ill patient Endo: History diabetes mellitus Ketoacidosis Received 5 units IV insulin ED. Currently on insulin drip see orders Every 6 hours BMP, mag and phosphorus. Replace select lites as clinically indicated Recheck acetone 12 hours Hemoglobin A1c ordered Renal: Creatinine currently within normal limits Accurate I's and O's Monitor urine output Heme: Leukocytosis Monitor CBC daily. Follow trends ID: Necrotizing fasciitis Likely osteomyelitis fourth fifth left foot metatarsal Clindamycin, Unasyn and vancomycin ordered Blood cultures 2 ordered Source control with podiatry/Dr. Kaminski FEN: Hypokalemia Replace electrolytes as clinically indicated per electrolyte protocol MSK: PT evaluate and treat Access - Utilize peripheral IV. Central line if indicated Prophylaxis - GI - Protonix - DVT - SCDs/holding pharmacological prophylaxis tonight prior to surgery Critical Care: The total critical care time was 35 minutes. Time to perform other separately billable procedures was not included in the critical care time. Code Status Full code Discussed Condition With Dr. campbell/ed physician. Dr. Nunez/podiatry. Patient. Care plan discussed all questions answered. Problem Qualifiers (1) Osteomyelitis: Qualified Code: M86.9 - Osteomyelitis, unspecified site, unspecified type (2) DKA (diabetic ketoacidoses): Qualified Code: E13.10 - Diabetic ketoacidosis without coma associated with other specified diabetes mellitus (3) Hypertension: Qualified Code: I10 - Essential hypertension (4) Leukocytosis (leucocytosis): Qualified Code: D72.829 - Leukocytosis, unspecified type (5) Sepsis: Qualified Code: A41.9 - Sepsis, due to unspecified organism Orlando Her MD December 15, 2016 17:02
--- NOTE | 2016-12-15 17:23 | RADRPT ---
EXAM DATE/TIME: 12/15/2016 17:01 [place] COMPARISON: No previous studies available for comparison. INDICATIONS : Shortness of breath. MEDICAL HISTORY : None. SURGICAL HISTORY : Cholecystectomy. ENCOUNTER: Subsequent ACUITY: 1 day PAIN SCORE: 0/10 LOCATION: Bilateral chest FINDINGS: A single view of the chest demonstrates the lungs to be symmetrically aerated without evidence of mas s, infiltrate or effusion. The cardiomediastinal contours are unremarkable. Osseous structures are intact. CONCLUSION: 1. No active disease. Mildly tortuous and atherosclerotic aorta. Blair Franklin MD on December 15, 2016 at 17:21 Board Certified Radiologist. This report was verified electronically.
[2016-12-15] MEDS ORDERED: Post-op Orders (for Pharmacy) MISC XX ONE (18:26)
[2016-12-15] MEDS ORDERED: HYDROmorphone HCL PF 1 MG/ML VIAL IV PRN (18:30)
[2016-12-15] MEDS ORDERED: NALOXONE HCL 0.4 MG/ML AMP IV PRN (18:30)
[2016-12-15] MEDS ORDERED: HYDROmorphone HCL 2 MG TAB PO PRN ×2 (18:30)
--- NOTE | 2016-12-15 18:30 | PD.OP ---
Operative Report Date of Surgery: December 15, 2016 Preoperative Diagnosis: (1) Gas gangrene of foot (2) Abscess of foot (3) Diabetic infection of left foot Left foot Postoperative Diagnosis: (1) Gas gangrene of foot (2) Diabetic infection of left foot (3) Abscess of foot Left foot Procedure: Incision and drainage of abscess left foot with resection of necrotic tissue below the fascial level. Wound measures 8 cm x 14 cm Anesthesia: General inhalation Surgeon: Oliver Nunez DPM [employer] Owner(s): None Operation and Findings: Patient was brought to the operating room and placed on the operating table in the supine position. Patient presented to the ED with gas gangrene of the left foot with necrotizing fasciitis. She was brought to the OR. She was given general inhalation anesthesia. The left foot was prepped and draped in usual sterile manner. After the appropriate timeout was performed attention was directed to the left foot. Patient was noted to have gangrenous tissue in the arch of the left foot extending over to the fifth metatarsal head area. Preoperative radiographs showed gas gangrene as well as osteomyelitis of the fourth and fifth metatarsals. At this time was determined to do an incision and drainage and come back later for any further bone resection. At this time using a 15 blade the necrotic tissue of the arch of the left foot was excised and removed up into the fifth metatarsal area. All necrotic tissue was debrided down to plus. Necrotic tissue and infected tissue was sent for culture and sensitivity. It was noted that there was a pus area between the fourth and fifth toes and this was incised and drained. There is also some tightness around the hallux base medially and this was incised also . All areas were then flushed with copious amounts of sterile saline. While the tissues did bleed there were no pumping vessels seen or ligated. The area again was flushed with copious amounts of sterile saline. The wounds were all dressed with Maxorb extra AG. A BD pads were applied along with a Britton and Codey bandage. Tissue was sent for culture and sensitivity. Estimated blood loss was less than 30 cc. Sponge and instrument count were noted to be correct. Patient tolerated the procedures and anesthesia well and left the OR to PACU in apparent satisfactory conditions without vital signs stable and vascular status intact. Oliver Nunez DPM December 15, 2016 18:30
[2016-12-15] MEDS ORDERED: PILL SPLITTER OTHER PRN (19:00)
[2016-12-15 19:16] LABS: MAGNESIUM 2.1 MG/DL (1.5-2.5)
[2016-12-15 19:22] LABS: APTT (PATIENT) 35.3 SEC (24.3-30.1); INTERNATIONAL NORMALIZED RATIO 1.5 RATIO; PROTHROMBIN TIME - PATIENT 16.7 SEC (9.8-11.6)
[2016-12-15] MEDS: ONDANSETRON HCL 4 MG/2 ML VIAL IV PRN (19:28)
[2016-12-15 20:00] VITALS: BP 145/67; PULSE 74; PULSE 75; RESP 20; TEMP 97.9; O2SAT 100
[2016-12-15 20:04] LABS: ANION GAP 12 MEQ/L (5-15); BICARBONATE 22.6 MEQ/L (21.0-32.0); BLOOD UREA NITROGEN 8 MG/DL (7-18); CHLORIDE 101 MEQ/L (98-107); GLOMERULAR FILTRATION RATE 150 ML/MIN (>89); MAGNESIUM 1.9 MG/DL (1.5-2.5); POTASSIUM 3.5 MEQ/L (3.5-5.1); SODIUM (NA) 136 MEQ/L (136-145)
[2016-12-15] MEDS: DEXT 5%-NACL 0.9% 1000 ML INJ 1,000 ML IV SCH ×3 (20:11→23:58)
[2016-12-15] MEDS: SODIUM CHLORIDE 0.9% FLUSH 10 ML FLUSH IV FLUSH SCH (21:00)
[2016-12-15] MEDS ORDERED: SODIUM CHLORIDE 0.9% FLUSH 10 ML FLUSH IV FLUSH SCH (21:00)
--- NOTE | 2016-12-15 21:47 | EKG ---
Date Performed: 12/15/2016 Time Performed: 16:39:25 PTAGE: 70 years EKG: Sinus rhythm WITH FREQUENT SUPRAVENTRICULAR PREMATURE COMPLEXES ABNORMAL RHYTHM ECG PREVIOUS TRACING : 07/03/2005 11.43 DOCTOR: Gallo Parsons Interpretating Date/Time 12/15/2016 21:44:48
[2016-12-15] MEDS: DOCUSATE SODIUM 100 MG CAP PO SCH (22:07)
[2016-12-15] MEDS: AMPICILLIN-SULBACTAM INJ 3 GM in SODIUM CHLORIDE 0.9% INJ 100 ML IV SCH (22:07)
[2016-12-15 23:00] VITALS: PULSE 88
[2016-12-15] MEDS: CLINDAMYCIN INJ 900 MG in SODIUM CHLORIDE 0.9% INJ 100 ML IV SCH (23:57)
[2016-12-16] VITALS (8 sets, daily range): BP systolic 133–158; BP diastolic 63–73; PULSE 82–96; RESP 14–21; TEMP 98–99.9; O2SAT 97–100
[2016-12-16 00:45] LABS: BETA-HYDROXYBUTYRATE 1.25 MMOL/L (0.00-0.39); BICARBONATE 23.4 MEQ/L (21.0-32.0); MAGNESIUM 1.8 MG/DL (1.5-2.5); POTASSIUM 3.8 MEQ/L (3.5-5.1)
[2016-12-16] MEDS: AMPICILLIN-SULBACTAM INJ 3 GM in SODIUM CHLORIDE 0.9% INJ 100 ML IV SCH ×4 (02:57→19:51)
[2016-12-16] MEDS: POTASSIUM CHLOR 20 MEQ PREMIX 100 ML IV PRN (02:58)
[2016-12-16] MEDS ORDERED: VANCOMYCIN INJ 1,350 MG in SODIUM CHLORID 0.9% 500 ML INJ 500 ML IV SCH (03:00)
[2016-12-16] MEDS ORDERED: INSULIN REGULAR (IV INFUSION) 100 UNITS in SODIUM CHLORIDE 0.9% INJ 99 ML IV SCH (04:00)
[2016-12-16] MEDS ORDERED: DC Insulin drip 2 hrs post basal insulin dose ONE (04:00)
[2016-12-16] MEDS ORDERED: GLUCAGON 1 MG/ML VIAL OTHER PRN ×4 (04:00→07:00)
[2016-12-16] MEDS ORDERED: DEXTROSE 50% IN WATER 50 ML VIAL(D50) IV PUSH PRN ×4 (04:00→07:00)
[2016-12-16] MEDS ORDERED: DC previous DKA orders (HMC 1917) ONE (04:00)
[2016-12-16] MEDS: CHLORHEXIDINE GLUCONATE 2 % 1 PACK (2 CLOTHS) TOP SCH (04:00)
[2016-12-16] MEDS ORDERED: INSULIN HUMAN REGULAR 1,000 UNITS/10 ML VIAL SQ ONE (07:00)
--- NOTE | 2016-12-16 07:09 | HHI.CCPN ---
Subjective Remarks/Hospital Course 70-year-old female. Date of admission 12/15/2016. Past medical history includes hypertension, diabetes mellitus and history of rheumatic fever. Approximately one month ago patient had an open sore to the medial aspect upper left foot. She has not had this treated. She has been feeling weak and is a very poor. The past several days. He has become more red and foul-smelling. She presented today to [facility] for evaluation treatment. In the ED, MRI of the left foot revealed necrotizing fasciitis with gas/ cellulitis of likely osteomyelitis of the distal fourth and fifth metatarsals of the left foot. She received vancomycin, clindamycin and Unasyn. Wound culture and blood cultures were performed. Podiatry is consulted and plan to take the or for debridement. EKG and chest x-ray pending. Coags pending. Also, elevated anion gap 17. Elevated beta hydroxybutyrate 5.6. Potassium 2.9. Potassium currently replaced. DKA protocol initiated with 5 units IV insulin followed by insulin drip Subjective 12/16: Afebrile. Insulin drip to be discontinued today. Pain control. Left foot toes are warm. Objective Vital Signs Date Time Temp Pulse Resp B/P Pulse Ox O2 Delivery O2 Flow Rate FiO2 12/16/16 04:00 98.1 89 21 133/63 100 12/15/16 20:00 Nasal Cannula 2.00 Intake and Output 12/15/16 12/15/16 12/16/16 08:00 16:00 00:00 Intake Total 1910 ml Output Total 1110 ml Balance 800 ml Result Diagram: 12/15/16 1228 12/16/16 0015 Other Results Microbiology Date/Time Procedure Status Source Growth 12/15/16 13:40 Aerobic Blood Culture Received Blood Peripheral Pending 12/15/16 13:40 Anaerobic Blood Culture Received Blood Peripheral Pending 12/15/16 13:30 Gram Stain - Final Resulted Wound Foot 12/15/16 13:30 Wound Culture Resulted Wound Foot Pending 12/15/16 13:30 Fungal Smear Ordered Wound Foot Pending 12/15/16 13:30 Fungal Culture Ordered Wound Foot Pending Imaging Last Impressions Foot MRI 12/15/16 1325 Signed Impressions: Service Date/Time: Thursday, December 15, 2016 14:22 - CONCLUSION: 1. Soft tissue ulceration and numerous gas collections in the soft tissues of the forefoot and midfoot most characteristic of a necrotizing type cellulitis. 2. Osteomyelitis of the distal fourth and fifth metatarsals and possibly the proximal phalanx of the fifth toe. Remote fracture second toe. 3. No drainable fluid collections within the foot. Blair Franklin MD Foot X-Ray 12/15/16 Signed Impressions: Service Date/Time: Thursday, December 15, 2016 12:25 - CONCLUSION: 1. Soft tissue swelling in extensive gas in the soft tissues consistent with the known infection. 2. No definite destructive change or osteomyelitis. 3. Osteoarthritic change. Yousuf Walton MD Chest X-Ray 12/15/16 Signed Impressions: Service Date/Time: Thursday, December 15, 2016 17:01 - CONCLUSION: 1. No active disease. Mildly tortuous and atherosclerotic aorta. Blair Franklin MD Objective Remarks GENERAL: 70-year-old female in bed in no acute distress SKIN: Warm and dry. Left ankle/foot currently covered with Codey bandage. Great toe was warm. Able to wiggle. HEAD: Atraumatic. Normocephalic. EYES: Pupils equal and round. No scleral icterus. No injection or drainage. ENT: No nasal bleeding or discharge. Mucous membranes pink and moist. NECK: Trachea midline. No JVD. CARDIOVASCULAR: Regular rate and rhythm. S1, S2. No S4 without murmur RESPIRATORY: Clear to auscultation. Breath sounds equal bilaterally. GASTROINTESTINAL: Abdomen soft, non-tender, nondistended. Hepatic and splenic margins not palpable. MUSCULOSKELETAL: Extremities as above with skin. NEUROLOGICAL: Awake and alert. No obvious cranial nerve deficits. Motor grossly within normal limits. Five out of 5 muscle strength in the arms and legs. Normal speech. PSYCHIATRIC: Appropriate mood and affect; insight and judgment normal. A/P Assessment and Plan Neuro/Psych: Acetaminophen for fever [place]/Morphine as needed for pain management. Patient has allergy to codeine/causes "swelling". Received morphine in ED without complication CV: Hypertension As needed labetalol/hydralazine for elevated blood pressure Currently on DKA protocol with D5 normal saline at 250 cc an hour and this will be discontinued today EKG revealed normal sinus rhythm with normal SD/QRS and QT intervals. Occasional PVCs Resp: Nasal cannula to maintain saturations greater than or equal to 92%. Currently on 2 L Incentive spirometry while awake Chest x-ray 5/6 reveals tortuous aorta otherwise no other acute cardiopulmonary findings GI: Patient is currently on ADA diet Protonix for GI prophylaxis Colace/as needed Senokot for bowel regimen : Celeste will be placed for accurate I's and O's in a critically ill patient Endo: History diabetes mellitus Ketoacidosis Received 5 units IV insulin ED. Currently on insulin drip see orders. We'll transition to Levemir 10 units in the morning and receiving 3 units R insulin. Sliding scale insulin/moderate Accu-Chek before meals/at bedtime and 300 Hemoglobin A1c ordered Renal: Creatinine currently within normal limits Accurate I's and O's Monitor urine output Heme: Leukocytosis Monitor CBC daily. Follow trends ID: Necrotizing fasciitis Likely osteomyelitis fourth fifth left foot metatarsal Clindamycin, Unasyn and vancomycin day #2 Blood cultures 2/wound cultures 5/6 pending Source control with podiatry Infectious disease consulted FEN: Hypokalemia Hypophosphatemia Hypo-magnesium Replace electrolytes as clinically indicated per electrolyte protocol 40 mEq KCl, 2 g mag sulfate 30 mmol sodium phosphate 1. Recheck MSK: Postop day #1 I&D left foot with resection of necrotic tissue below the fascial plane/8 x 14 cm secondary to gas gangrene EBL -300. Postoperative management per podiatry PT evaluate and treat Access - Utilize peripheral IV. Central line if indicated Prophylaxis - GI - Protonix - DVT - SCDs/heparin to start 24 hours postop Critical Care: The total care time was 35 minutes. Time to perform other separately billable procedures was not included in the critical care time. Patient is stable from a critical care medicine standpoint. We'll transfer care to hospitalist in a.m. 12/17. Orlando Her MD December 16, 2016 07:09
[2016-12-16] MEDS ORDERED: POTASSIUM CHLORIDE 10 MEQ CONTROLLED RELEASE TAB PO ONE ×2 (07:15→16:15)
[2016-12-16] MEDS ORDERED: ACETAMINOPHEN/HYDROcodone 325 MG/5 MG TAB PO PRN (07:15)
[2016-12-16] MEDS ORDERED: SODIUM PHOSPHATE INJ 30 MMOL in SODIUM CHLOR 0.9% 250 ML INJ 250 ML IV ONE (08:00)
[2016-12-16] MEDS: CLINDAMYCIN INJ 900 MG in SODIUM CHLORIDE 0.9% INJ 100 ML IV SCH ×2 (08:32→15:00)
[2016-12-16] MEDS: INSULIN DETEMIR 100 UNITS/ML VIAL SQ SCH (08:32)
[2016-12-16] MEDS: DOCUSATE SODIUM 100 MG CAP PO SCH ×2 (08:33→19:51)
[2016-12-16] MEDS: SODIUM CHLORIDE 0.9% FLUSH 10 ML FLUSH IV FLUSH SCH ×2 (08:33→19:52)
[2016-12-16] MEDS: PANTOPRAZOLE SODIUM 40 MG VIAL IV SCH (08:33)
[2016-12-16] MEDS: INSULIN NovoLIN REGULAR SUPPLEMENTAL SCALE SQ SCH ×4 (08:34→21:10)
[2016-12-16] MEDS: MAGNESIUM SULFATE 1 GM PREMIX 100 ML IV SCH ×2 (08:34→09:33)
[2016-12-16 09:42] LABS: HEMOGLOBIN A1a 1.5 %; HEMOGLOBIN A1b 2.5 %; HEMOGLOBIN Ao 78.3 %; HEMOGLOBIN LA1C 2.5 %; HEMOGLOBIN P3 4.3 %
--- NOTE | 2016-12-16 11:35 | PD.POD ---
Subjective Podiatric Problems 1 day status post gas gangrene and necrotizing fasciitis of the left foot Pain scale used: 0-10 numeric scale Pain score: 1 Remarks 70-year-old diabetic female who presented to [place] emergency department yesterday with a diabetic foot infection. Radiographs and MRI showed gas gangrene with necrotizing fasciitis and osteomyelitis of the fourth and fifth met heads. Patient was taken to the OR for an incision and drainage and resection of necrotic tissue of the left foot. Tissue culture obtained during the procedure is pending. Patient was seen in ICU where she is being treated for a diabetic ketoacidosis. Patient is feeling better today and is able to eat. Past Med/Surg/Social History Past Medical History PFS Reviewed: Yes Endocrine: REPORTS HX OF: Diabetes mellitus Social History Smoking Status: Former Smoker Review of Systems Notes Changes in her 14 point review of systems exam since yesterday is the resection of necrotic tissue of the left foot Neurological: COMPLAINS OF: Numbness/tingling, Changes in sensation Objective Vital Signs Vital Signs Date Time Temp Pulse Resp B/P Pulse Ox O2 Delivery O2 Flow Rate FiO2 12/16/16 04:00 98.1 89 21 133/63 100 12/16/16 00:00 98.1 88 14 137/64 100 12/15/16 23:00 88 12/15/16 20:00 97.9 74 20 145/67 100 12/15/16 20:00 100 Nasal Cannula 2.00 12/15/16 20:00 75 12/15/16 19:00 98.8 78 16 153/75 100 Nasal Cannula 2 12/15/16 18:45 80 21 154/72 100 Nasal Cannula 3 12/15/16 18:30 98.8 84 18 150/70 99 Nasal Cannula 3 12/15/16 16:55 98.3 96 20 145/70 97 Room Air 12/15/16 15:40 20 12/15/16 13:00 Room Air Coded Allergies: Codeine (Verified Allergy, Severe, 03/31/08) Medications and IVs Current Medications Sodium Chloride (NS 1000 ml Inj) 1,000 ml @ 1,000 mls/hr Q1H IV Last administered on 12/15/16t 15:29; Start 12/15/16 at 13:07; Stop 12/15/16 at 14:06; Status DC Morphine Sulfate (Morphine Inj) 4 mg ONCE ONCE IV PUSH Last administered on 15:30; Start 12/15/16 at 13:15; Stop 12/15/16 at 13:16; Status DC Ondansetron HCl 4 mg 4 mg ONCE ONCE IV PUSH Last administered on 12/15/16 15: 29; Start 12/15/16 at 13:15; Stop 12/15/16 at 13:16; Status DC Vancomycin HCl 1000 mg/Sodium Chloride 250 ml @ 250 mls/hr ONCE ONCE IV Last administered on 12/15/16 17:00; Start 12/15/16 at 13:15; Stop 12/15/16 at 14:14; Status DC Piperacillin Sod/ Tazobactam Sod 50 ml @ 100 mls/hr ONCE ONCE IV ; Start at 13:15; Stop 12/15/16 at 13:23; Status DC Sodium Chloride (NS 1000 ml Inj) 1,000 ml @ 1,000 mls/hr Q1H IV Last administered on 12/15/16 15:29; Start 12/15/16 at 13:12; Stop 12/15/16 at 14:11; Status DC Potassium Chloride 40 meq 40 meq ONCE ONCE PO Last administered on 12/15/16 15 :20; Start 12/15/16 at 13:30; Stop 12/15/16 at 13:31; Status DC Ampicillin Sodium/ Sulbactam Sodium 3 gm/Sodium Chloride 100 ml @ 200 mls/hr ONCE ONCE IV Last administered on 12/15/16 15:05; Start 12/15/16 at 13:30; Stop 12/15/16 at 13:59; Status DC Clindamycin Phosphate 600 mg/ Sodium Chloride 104 ml @ 208 mls/hr ONCE ONCE IV Last administered on 12/15/16 15:30; Start 12/15/16 at 13:30; Stop 12/15/16 at 13:59; Status DC Potassium Chloride (KCl 10 Meq Premix Inj) 100 ml @ 100 mls/hr BOLUS ONCE IV Last administered on 12/15/16 15:50; Start 12/15/16 at 13:30; Stop 12/15/16 at 15: 55; Status DC Gadodiamide 14 ml 14 ml STK-MED ONCE IV Last administered on 12/15/16 14:35; Start 12/15/16 at 14:35; Stop 12/15/16 at 14:36; Status DC Sodium Chloride 1,000 ml @ 250 mls/hr Q4H IV Last administered on 12/15/16 22: 07; Start 12/15/16 at 15:38; Stop 12/16/16 at 03:52; Status DC Dextrose/Sodium Chloride 1,000 ml @ 200 mls/hr Q5H IV Last administered on 12/15 23:58; Start 12/15/16 at 15:38; Stop 12/16/16 at 03:52; Status DC Insulin Human Regular 100 units/ Sodium Chloride 100 ml @ 0 mls/hr TITRATE IV Last administered on 12/15/16 20:11; Start 12/15/16 at 15:45; Stop 12/16/16 at 03: 52; Status DC Potassium Chloride 100 ml @ 100 mls/hr Q1H PRN IV SEE LABEL COMMENTS; Start at 15:45; Stop 12/16/16 at 03:52; Status DC Potassium Chloride 100 ml @ 50 mls/hr Q2H PRN IV SEE LABEL COMMENTS; Start 12/15/16 at 15:45; Stop 12/16/16 at 03:52; Status DC Potassium Chloride 100 ml @ 100 mls/hr Q1H PRN IV SEE LABEL COMMENTS Last administered on 12/16/16 02:58; Start 12/15/16 at 15:45; Stop 12/16/16 at 03:52; Status DC Potassium Chloride 100 ml @ 100 mls/hr Q1H PRN IV SEE LABEL COMMENTS; Start at 15:45; Stop 12/16/16 at 03:52; Status DC Potassium Chloride 100 ml @ 50 mls/hr Q2H PRN IV SEE LABEL COMMENTS; Start 12/15/16 at 15:45; Stop 12/16/16 at 03:52; Status DC Potassium Chloride 100 ml @ 50 mls/hr Q2H PRN IV SEE LABEL COMMENTS; Start 12/15/16 at 15:45; Stop 12/16/16 at 03:52; Status DC Potassium Chloride 100 ml @ 50 mls/hr Q2H PRN IV SEE LABEL COMMENTS; Start 12/15/16 at 15:45; Stop 12/16/16 at 03:52; Status DC Potassium Chloride (KCl 20 Meq Premix Inj) 100 ml @ 50 mls/hr Q2H PRN IV SEE LABEL COMMENTS; Start 12/15/16 at 15:45; Stop 12/16/16 at 03:52; Status DC Sodium Bicarbonate (Sodium Bicarbonate 8.4% Inj) 100 meq UNSCH PRN IV SEE LABEL COMMENTS; Start 12/15/16 at 15:45; Stop 12/16/16 at 03:52; Status DC Sodium Bicarbonate 50 meq 50 meq UNSCH PRN IV SEE LABEL COMMENTS; Start at 15:45; Stop 12/16/16 at 03:52; Status DC Sodium Phosphate/ Sodium Chloride (Sodium Phosphate Inj/NS Inj) 105 ml @ 25 mls /hr UNSCH PRN IV SEE LABEL COMMENTS; Start 12/15/16 at 15:45; Stop 12/16/16 at 03 :52; Status DC Insulin Human Regular (NovoLIN R INJ) 5 units BOLUS ONCE IV PUSH ; Start at 15:45; Stop 12/15/16 at 15:51; Status DC Sodium Chloride (NS Flush) 2 ml UNSCH PRN IV FLUSH FLUSH AFTER USING IV ACCESS ; Start 12/15/16 at 17:00; Stop 12/15/16 at 18:55; Status DC Sodium Chloride (NS Flush) 2 ml BID IV FLUSH ; Start 12/15/16 at 21:00; Stop 12/15 at 21:00; Status DC Acetaminophen (Tylenol) 650 mg Q6H PRN PO PAIN 1-10 AND/OR FEVER >101F; Start 12/15/16 at 17:00 Morphine Sulfate (Morphine Inj) 2 mg Q2H PRN IV PAIN SCALE 6 TO 10; Start at 17:00 Pantoprazole Sodium (Protonix Inj) 40 mg DAILY IV Last administered on 08:33; Start 12/16/16 at 09:00 Ondansetron HCl (Zofran Inj) 4 mg Q6H PRN IV NAUSEA OR VOMITING Last administered on 12/15/16 19:28; Start 12/15/16 at 17:00 Docusate Sodium (Colace) 100 mg BID PO Last administered on 12/16/16 08:33; Start 12/15/16 at 21:00 Sennosides (Senokot) 17.2 mg Q12H PRN PO CONSTIPATION; Start 12/15/16 at 17:00 Albuterol Sulfate (Albuterol Neb) 2.5 mg Q2HR NEB PRN INH SOB/WHEEZING; Start 12/15/16 at 17:00 Heparin Sodium (Porcine) (Heparin Inj) 5,000 units Q12H SQ ; Start 12/16/16 at 18 :00 Miscellaneous Information 1 Q361D XX ; Start 12/15/16 at 17:00 Chlorhexidine Gluconate (Chlorhexidine 2% Cloth) 3 pack Taper DAILY@04 TOP Last administered on 12/16/16 04:00; Start 12/16/16 at 04:00; Stop 12/12/17 at 03: 59 Chlorhexidine Gluconate 3 pack 3 pack UNSCH PRN TOP HYGIENIC CARE; Start at 17:00 Clindamycin Phosphate 900 mg/ Sodium Chloride 106 ml @ 212 mls/hr Q8H IV Last administered on 12/16/16 08:32; Start 12/16/16 at 00:00 Pharmacy Profile Note 0 ml @ 0 mls/hr UNSCH OTHER ; Start 12/15/16 at 17:00 Ampicillin Sodium/ Sulbactam Sodium 3 gm/Sodium Chloride 100 ml @ 200 mls/hr Q6H IV Last administered on 12/16/16 09:36; Start 12/15/16 at 21:00 Potassium Chloride 100 ml @ 50 mls/hr Q2H PRN IV SEE LABEL COMMENTS; Start 12/15/16 at 17:00; Stop 12/16/16 at 07:03; Status DC Potassium Chloride 100 ml @ 50 mls/hr Q2H PRN IV SEE LABEL COMMENTS; Start 12/15/16 at 17:00; Stop 12/16/16 at 07:03; Status DC Potassium Chloride 100 ml @ 50 mls/hr Q2H PRN IV SEE LABEL COMMENTS; Start 12/15/16 at 17:00; Stop 12/16/16 at 07:03; Status DC Potassium Chloride 100 ml @ 50 mls/hr Q2H PRN IV SEE LABEL COMMENTS; Start 12/15/16 at 17:00; Stop 12/16/16 at 07:03; Status DC Sodium Phosphate 15 mmol/Sodium Chloride 105 ml @ 25 mls/hr UNSCH PRN IV SEE LABEL COMMENTS; Start 12/15/16 at 17:00; Stop 12/16/16 at 07:03; Status DC Magnesium Sulfate/ Sodium Chloride (Magnesium Sulfate Inj/NS Inj) 100 ml @ 50 mls/hr UNSCH PRN IV For Magnesium 0.9 - 1.1 mg/dL; Start 12/15/16 at 17:00; Stop 12/16/16 at 07:03; Status DC Magnesium Oxide 800 mg 800 mg UNSCH PRN PO For Magnesium 1.2 - 1.6 mg/dL; Start 12/15/16 at 17:00; Stop 12/16/16 at 07:03; Status DC Magnesium Sulfate/ Sodium Chloride (Magnesium Sulfate Inj/NS Inj) 100 ml @ 50 mls/hr UNSCH PRN IV For Magnesium 1.2 - 1.6 mg/dL; Start 12/15/16 at 17:00; Stop 12/16/16 at 07:03; Status DC Potassium Phosphate 2000 mg 2,000 mg Q4H PRN PO For Phosphorus < 2.5 mg/dL; Start 12/15/16 at 17:00; Stop 12/16/16 at 07:03; Status DC Sodium Phosphate/ Sodium Chloride (Sodium Phosphate Inj/NS 250 ml Inj) 250 ml @ 42 mls/hr UNSCH PRN IV For Phosphorus < 2.5 mg/dL Last administered on 02:58; Start 12/15/16 at 17:00; Stop 12/16/16 at 07:03; Status DC Potassium Phosphate (K-Phos) 2,000 mg UNSCH PRN PO/TUBE SEE LABEL COMMENTS; Start 12/15/16 at 17:00; Stop 12/16/16 at 07:03; Status DC Labetalol HCl (Trandate Inj) 10 mg Q1HR PRN IV PUSH SBP>160, DBP>90, HR>65; Start 12/15/16 at 17:00 Hydralazine HCl (Apresoline Inj) 10 mg Q1HR PRN IV PUSH SBP>160, DBP>90 Last administered on 12/15/16 21:38; Start 12/15/16 at 17:00 Fentanyl Citrate 100 mcg 100 mcg STK-MED ONCE .ROUTE ; Start 12/15/16 at 17:53; Stop 12/15/16 at 17:54; Status DC Vancomycin HCl/ Sodium Chloride (Vancomycin Inj/ NS 500 ml Inj) 513.5 ml @ 250 mls/hr Q12H IV Last administered on 12/16/16 02:58; Start 12/16/16 at 03:00; Stop 12/16/16 at 10:17; Status DC Miscellaneous Information SPECIFIC LAB TO BE DRAWN:VANCO TROUGH DATE TO BE DR... ONCE ONCE .XX ; Start 12/18/16 at 08:45; Stop 12/18/16 at 08:46 Sodium Chloride (NS Flush) 2 ml UNSCH PRN IV FLUSH FLUSH AFTER USING IV ACCESS ; Start 12/15/16 at 18:30 Sodium Chloride (NS Flush) 2 ml BID IV FLUSH Last administered on 12/16/16 08: 33; Start 12/15/16 at 21:00 Miscellaneous Information (Post-op Orders (for Pharmacy)) STAT ONCE XX ; Start 12/15/16 at 18:26; Stop 12/15/16 at 18:50; Status DC Hydromorphone HCl (Dilaudid Pf Inj) 1 mg Q3H PRN IV BREAKTHROUGH PAIN; Start at 18:30; Stop 12/16/16 at 07:03; Status DC Hydromorphone HCl (Dilaudid) 1 mg Q4H PRN PO PAIN SCALE 3 TO 5; Start 12/15/16 at 18:30; Stop 12/16/16 at 07:03; Status DC Hydromorphone HCl (Dilaudid) 2 mg Q4H PRN PO PAIN SCALE 6 TO 10; Start 12/15/16 at 18:30; Stop 12/16/16 at 07:03; Status DC Naloxone HCl (Narcan Inj) 0.4 mg UNSCH PRN IV SEE LABEL COMMENTS; Start at 18:30 Miscellaneous (Pill Splitter) 1 ea UNSCH PRN OTHER SEE LABEL COMMENTS; Start at 19:00 Miscellaneous Information 1 ONCE ONCE .XX ; Start 12/16/16 at 04:00; Stop at 04:01; Status DC Miscellaneous Information 1 ONCE ONCE .XX ; Start 12/16/16 at 04:00; Stop at 04:01; Status DC Insulin Detemir (Levemir Inj) 10 units DAILY SQ Last administered on 12/16/16 08:32; Start 12/16/16 at 09:00 Dextrose (D50w (Vial) Inj) 25 ml UNSCH PRN IV PUSH HYPOGLYCEMIA-SEE COMMENTS; Start 12/16/16 at 04:00 Glucagon (Glucagon Inj) 1 mg UNSCH PRN OTHER HYPOGLYCEMIA-SEE COMMENTS; Start 12/16/16 at 04:00 Dextrose (D50w (Vial) Inj) 25 ml UNSCH PRN IV PUSH HYPOGLYCEMIA-SEE COMMENTS; Start 12/16/16 at 04:00; Stop 12/16/16 at 04:00; Status DC Glucagon (Glucagon Inj) 1 mg UNSCH PRN OTHER HYPOGLYCEMIA-SEE COMMENTS; Start 12/16/16 at 04:00; Stop 12/16/16 at 04:00; Status DC Dextrose (D50w (Vial) Inj) 25 ml UNSCH PRN IV PUSH HYPOGLYCEMIA-SEE COMMENTS; Start 12/16/16 at 04:00; Stop 12/16/16 at 04:00; Status DC Glucagon 1 mg 1 mg UNSCH PRN OTHER HYPOGLYCEMIA-SEE COMMENTS; Start 12/16/16 at 04:00; Stop 12/16/16 at 04:00; Status DC Insulin Human Regular/Sodium Chloride (NovoLIN R (IV INFUSION)/NS Inj) 100 ml @ 0 mls/hr TITRATE IV ; Start 12/16/16 at 04:00; Stop 12/16/16 at 07:03; Status DC Dextrose (D50w (Vial) Inj) 25 ml UNSCH PRN IV PUSH HYPOGLYCEMIA-SEE COMMENTS; Start 12/16/16 at 07:00; Status UNV Glucagon (Glucagon Inj) 1 mg UNSCH PRN OTHER HYPOGLYCEMIA-SEE COMMENTS; Start 12/16/16 at 07:00; Status UNV Insulin Human Regular (NovoLIN R SUPPLEMENTAL SCALE) 1 ACHS SLIDING SCALE SQ Last administered on 12/16/16 08:34; Start 12/16/16 at 07:00 Potassium Chloride 30 meq 30 meq ONCE ONCE PO Last administered on 12/16/16 08 :32; Start 12/16/16 at 07:15; Stop 12/16/16 at 07:16; Status DC Magnesium Sulfate/ Dextrose 100 ml @ 100 mls/hr Q1H IV Last administered on 09:33; Start 12/16/16 at 07:00; Stop 12/16/16 at 08:59; Status DC Sodium Phosphate/ Sodium Chloride (Sodium Phosphate Inj/NS 250 ml Inj) 260 ml @ 43.333 mls/ hr ONCE ONCE IV ; Start 12/16/16 at 08:00; Stop 12/16/16 at 13:59 Insulin Human Regular (NovoLIN R INJ) 3 units ONCE ONCE SQ Last administered on 12/16/16t 08:33; Start 12/16/16 at 07:00; Stop 12/16/16 at 07:04; Status DC Acetaminophen/ Hydrocodone Bitart 1 tab 1 tab Q4H PRN PO PAIN SCALE 1 TO 5; Start 12/16/16 at 07:15 Vancomycin HCl/ Sodium Chloride (Vancomycin Inj/ NS 500 ml Inj) 513.5 ml @ 250 mls/hr Q18H IV ; Start 12/16/16 at 21:00 Other Results Laboratory Tests Test 12/15/16 12:28 White Blood Count 22.4 TH/MM3 Red Blood Count 4.47 MIL/MM3 Hemoglobin 12.6 GM/DL Hematocrit 36.9 % Mean Corpuscular Volume 82.5 FL Mean Corpuscular Hemoglobin 28.1 PG Mean Corpuscular Hemoglobin 34.1 % Concent Red Cell Distribution Width 13.7 % Platelet Count 348 TH/MM3 Mean Platelet Volume 9.0 FL Neutrophils (%) (Auto) 89.2 % Lymphocytes (%) (Auto) 4.0 % Monocytes (%) (Auto) 6.6 % Eosinophils (%) (Auto) 0.0 % Basophils (%) (Auto) 0.2 % Neutrophils # (Auto) 20.0 TH/MM3 Lymphocytes # (Auto) 0.9 TH/MM3 Monocytes # (Auto) 1.5 TH/MM3 Eosinophils # (Auto) 0.0 TH/MM3 Basophils # (Auto) 0.0 TH/MM3 CBC Comment AUTO DIFF Differential Total Cells 100 Counted Neutrophils % (Manual) 88 % Band Neutrophils % 3 % Lymphocytes % 5 % Monocytes % 3 % Neutrophils # (Manual) 20.6 TH/MM3 Myelocytes 1 % Differential Comment FINAL DIFF MANUAL Platelet Estimate NORMAL Platelet Morphology Comment NORMAL Red Cell Morphology Comment NORMAL Erythrocyte Sedimentation Rate 40 mm/hr Laboratory Tests Test 12/15/16 12/15/16 12/15/16 12/16/16 12:28 13:40 18:45 00:15 Sodium Level 132 MEQ/L 136 MEQ/L 140 MEQ/L Potassium Level 2.9 MEQ/L 3.5 MEQ/L 3.8 MEQ/L Chloride Level 94 MEQ/L 101 MEQ/L 106 MEQ/L Carbon Dioxide Level 21.4 MEQ/L 22.6 MEQ/L 23.4 MEQ/L Anion Gap 17 MEQ/L 12 MEQ/L 11 MEQ/L Blood Urea Nitrogen 10 MG/DL 8 MG/DL 7 MG/DL Creatinine 0.49 MG/DL 0.42 MG/DL 0.38 MG/DL Estimat Glomerular Filtration 125 ML/MIN 150 ML/MIN 168 ML/MIN Rate Random Glucose 246 MG/DL 195 MG/DL 167 MG/DL Calcium Level 9.2 MG/DL 7.6 MG/DL 7.9 MG/DL Phosphorus Level 2.4 MG/DL 2.6 MG/DL 1.6 MG/DL Magnesium Level 2.1 MG/DL 1.9 MG/DL 1.8 MG/DL Total Bilirubin 0.9 MG/DL Aspartate Amino Transf 15 U/L (AST/SGOT) Alanine Aminotransferase 12 U/L (ALT/SGPT) Alkaline Phosphatase 168 U/L C-Reactive Protein 25.50 MG/DL Total Protein 7.4 GM/DL Albumin 2.6 GM/DL Lactic Acid Level 1.5 mmol/L Hemoglobin A1c 10.5 % Microbiology Date/Time Procedure Status Source Growth 12/15/16 13:30 Gram Stain - Final Resulted Wound Foot 12/15/16 13:30 Wound Culture Resulted Wound Foot Pending 12/15/16 13:30 Fungal Smear Ordered Wound Foot Pending 12/15/16 13:30 Fungal Culture Ordered Wound Foot Pending 12/15/16 13:40 Aerobic Blood Culture - Preliminary Resulted Blood Peripheral NO GROWTH IN 1 DAY 12/15/16 13:40 Anaerobic Blood Culture - Preliminary Resulted Blood Peripheral NO GROWTH IN 1 DAY 12/15/16 13:40 Aerobic Blood Culture - Preliminary Resulted Blood Peripheral NO GROWTH IN 1 DAY 12/15/16 13:40 Anaerobic Blood Culture - Preliminary Resulted Blood Peripheral NO GROWTH IN 1 DAY Exam-Podiatry Constitutional General appearance: comfortable Nutritional status: overweight Orientation: alert and oriented x3 Dermatological Exam Skin Temp - Right: Within Normal Limits Skin Texture - Right: Within Normal Limits Skin Elasticity - Right: Within Normal Limits Skin Tugor - Right: Within Normal Limits Hair Growth - Right: Within Normal Limits Pigmentation - Right: Within Normal Limits Skin Temp - Left: Within Normal Limits Skin Texture - Left: Within Normal Limits Skin Elasticity - Left: Within Normal Limits Skin Tugor - Left: Within Normal Limits Hair Growth - Left: Within Normal Limits Pigmentation - Left: Within Normal Limits Other: Scars, Surgery,Injury Dressing to the left foot is dry and intact. No ascending sialoadenitis seen above the Codey bandage. Remaining toes are warm and pink. Vascular/Lymphatic Exam R Dorsails Pedis: Doppler L Dorsails Pedis: Doppler R Posterior Tibial: Doppler L Posterior Tibial: Doppler Neurologic Exam Present on right: Tingling, Anesthesia Present on left: Tingling, Anesthesia Assessment & Plan Diagnosis: (1) Necrotizing cellulitis Status: Acute (2) Abscess of foot Status: Acute (3) Diabetic infection of left foot Status: Acute (4) Gas gangrene of foot Status: Acute (5) DKA (diabetic ketoacidoses) Status: Acute (6) Osteomyelitis Status: Acute A/P PLAN: Would change her dressing tomorrow. Redress with Maxorb extra AG. Once patient is stable and will go back and resect the fourth and fifth rays. Probably will apply a negative pressure wound therapy VAC. Discussed with patient and her risk of below-knee amputation. Continue to follow. Discussed with the nurse. Problem Qualifiers (1) DKA (diabetic ketoacidoses): Qualified Code: E13.10 - Diabetic ketoacidosis without coma associated with other specified diabetes mellitus (2) Osteomyelitis: Qualified Code: M86.9 - Osteomyelitis, unspecified site, unspecified type Oliver Nunez DPM December 16, 2016 11:35
--- NOTE | 2016-12-16 13:28 | PD.ID.CON ---
History of Present Illness Service ID Consult Requested By Dr. Her Reason for Consult Evaluation and Mment of Sepsis, Necrotizing fascitis left foot. Primary Care Physician No Primary Care Physician Diagnoses: History of Present Illness is a 70 y/o CF with PMHx of HTN, diabetes mellitus and history of rheumatic fever who was admitted on 12/15/2016. Approximately one month ago patient had an open sore to the medial aspect upper left foot. She has not had this treated. She has been feeling weak and is a very poor historian. She reports she lost her mother few months and has been melancholy since and this may be a reason why she ignored her health issues. She denies any suicidal ideation and reports good support system with friends. She does not have a designated health care surrogate. She reports she has peripheral neuropathy and experienced tingling and numbness. She thinks the area got progressively worse with increased redness and foul-smelling. She presented today to [facility] for evaluation and treatment. In the ED, MRI of the left foot revealed necrotizing fasciitis with gas/ cellulitis of likely osteomyelitis of the distal fourth and fifth metatarsals of the left foot. She received vancomycin, clindamycin and Unasyn. Wound culture and blood cultures were performed. Podiatry took patient to OR and she had debridement of the wound and intra op findings are suggestive of necrotizing fascitis and osteomyelitis. Patient is in the ICU at time of my evaluation and she is also being treated for DKA. She is not on pressors but is on an Insulin gtt and UO is good. She is awake and Ox3 non focal. She has no rash diarrhea or adverse events from the antibiotics and seems to be responding to current antibiotic regimen. ID consulted for sepsis, cellulitis of left foot and necrotizing fascitis. Review of Systems Constitutional: COMPLAINS OF: Chills, DENIES: Diaphoretic episodes, Fatigue, Fever, Weight gain, Weight loss, Dizziness, Change in appetite, Night Sweats Endocrine: DENIES: Abnorml menstrual pattern, Heat/cold intolerance, Polydipsia , Polyuria, Polyphagia Eyes: DENIES: Blurred vision, Diplopia, Eye inflammation, Eye pain, Vision loss , Photosensitivity, Double Vision Ears, nose, mouth, throat: DENIES: Tinnitus, Hearing loss, Vertigo, Nasal discharge, Oral lesions, Throat pain, Hoarseness, Ear Pain, Running Nose, Epistaxis, Sinus Pain, Toothache, Odynophagia Respiratory: DENIES: Apneas, Cough, Snoring, Wheezing, Hemoptysis, Sputum production, Shortness of breath Cardiovascular: DENIES: Chest pain, Palpitations, Syncope, Dyspnea on Exertion , PND, Lower Extremity Edema, Orthopnea, Claudication Gastrointestinal: DENIES: Abdominal pain, Black stools, Bloody stools, Constipation, Diarrhea, Nausea, Vomiting, Difficulty Swallowing, Anorexia Genitourinary: DENIES: Abnormal vaginal bleeding, Dysmenorrhea, Dyspareunia, Sexual dysfunction, Urinary frequency, Urinary incontinence, Urgency, Hematuria , Dysuria, Nocturia, Vaginal discharge Musculoskeletal: COMPLAINS OF: Joint Swelling, DENIES: Joint pain, Muscle aches, Stiffness, Back pain, Neck pain Integumentary: COMPLAINS OF: Abnormal pigmentation, DENIES: Pruritus, Rash, Nail changes, Breast masses, Breast skin changes, Nipple discharge Hematologic/lymphatic: DENIES: Bruising, Lymphadenopathy Immunologic/allergic: DENIES: Eczema, Urticaria Neurologic: COMPLAINS OF: Paresthesias, DENIES: Abnormal gait, Headache, Localized weakness, Seizures, Speech Problems, Tremor, Poor Balance Psychiatric: COMPLAINS OF: Mood changes Except as stated in HPI: all other systems reviewed are Neg Past Family Social History Allergies: Coded Allergies: Codeine (Verified Allergy, Severe, 03/31/08) Past Medical History Diabetes mellitus Hypertension History of rheumatic fever Past Surgical History Cholecystectomy Reported Medications Reported Meds & Active Scripts Active No Active Prescriptions or Reported Medications Active Ordered Medications Current Medications Medications (Trade) Dose Ordered Sig/Anjelica Route Start Time Stop Time Status Last Admin (Tylenol) 650 mg Q6H PRN PO 12/15/16 17:00 (Morphine Inj) 2 mg Q2H PRN IV 12/15/16 17:00 (Protonix Inj) 40 mg DAILY IV 12/16/16 09:00 12/16/16 08:33 (Zofran Inj) 4 mg Q6H PRN IV 12/15/16 17:00 12/15/16 19:28 (Colace) 100 mg BID PO 12/15/16 21:00 12/16/16 08:33 (Senokot) 17.2 mg Q12H PRN PO 12/15/16 17:00 (Heparin Inj) 5,000 units Q12H SQ 12/16/16 18:00 Miscellaneous Information 1 Q361D XX 12/15/16 17:00 (Chlorhexidine 2% Cloth) 3 pack Taper DAILY@04 TOP 12/16/16 04:00 12/12/17 03:59 12/16/16 04:00 Chlorhexidine Gluconate 3 pack 3 pack UNSCH PRN TOP 12/15/16 17:00 Clindamycin Phosphate 900 mg/ Sodium Chloride 106 ml @ 212 mls/hr Q8H IV 12/16/16 00:00 12/16/16 08:32 Pharmacy Profile Note 0 ml @ 0 mls/hr UNSCH OTHER 12/15/16 17:00 (Unasyn Inj/NS Inj) 100 ml @ 200 mls/hr Q6H IV 12/15/16 21:00 12/16/16 09:36 (Trandate Inj) 10 mg Q1HR PRN IV PUSH 12/15/16 17:00 (Apresoline Inj) 10 mg Q1HR PRN IV PUSH 12/15/16 17:00 12/15/16 21:38 Miscellaneous Information SPECIFIC LAB TO BE DRAWN:VANCO TROUGH DATE TO BE DR... ONCE ONCE .XX 12/18/16 08:45 12/18/16 08:46 (NS Flush) 2 ml UNSCH PRN IV FLUSH 12/15/16 18:30 (NS Flush) 2 ml BID IV FLUSH 12/15/16 21:00 12/16/16 08:33 (Narcan Inj) 0.4 mg UNSCH PRN IV 12/15/16 18:30 (Pill Splitter) 1 ea UNSCH PRN OTHER 12/15/16 19:00 (Levemir Inj) 10 units DAILY SQ 12/16/16 09:00 12/16/16 08:32 (D50w (Vial) Inj) 25 ml UNSCH PRN IV PUSH 12/16/16 04:00 (Glucagon Inj) 1 mg UNSCH PRN OTHER 12/16/16 04:00 Acetaminophen/ Hydrocodone Bitart 1 tab 1 tab Q4H PRN PO 12/16/16 07:15 (Vancomycin Inj/ NS 500 ml Inj) 513.5 ml @ 250 mls/hr Q18H IV 12/16/16 21:00 Family History Father with lung cancer. Mother with coronary disease. Grandfather diabetes. Social History Quit tobacco in 1997. Occasional wine. No IV drug use. Lives alone in a home with her dog. Her mother recently . No other family in town. Physical Exam Vital Signs Vital Signs Date Time Temp Pulse Resp B/P Pulse Ox O2 Delivery O2 Flow Rate FiO2 12/16/16 07:00 98 Nasal Cannula 2.00 12/16/16 04:00 98.1 89 21 133/63 100 12/16/16 00:00 98.1 88 14 137/64 100 12/15/16 23:00 88 12/15/16 20:00 97.9 74 20 145/67 100 12/15/16 20:00 100 Nasal Cannula 2.00 12/15/16 20:00 75 12/15/16 19:00 98.8 78 16 153/75 100 Nasal Cannula 2 12/15/16 18:45 80 21 154/72 100 Nasal Cannula 3 12/15/16 18:30 98.8 84 18 150/70 99 Nasal Cannula 3 12/15/16 16:55 98.3 96 20 145/70 97 Room Air 12/15/16 15:40 20 Physical Exam GENERAL: This is a well-nourished, well-developed patient, in no apparent distress. SKIN: No rashes, ecchymoses or lesions. Cool and dry. HEAD: Atraumatic. Normocephalic. No temporal or scalp tenderness. EYES: Pupils equal round and reactive. Extraocular motions intact. No scleral icterus. No injection or drainage. ENT: Nose without bleeding, purulent drainage or septal hematoma. Throat without erythema, tonsillar hypertrophy or exudate. Uvula midline. Airway patent. NECK: Trachea midline. Supple, nontender, no meningeal signs. CARDIOVASCULAR: Regular rate and rhythm without murmurs, gallops, or rubs. RESPIRATORY: Clear to auscultation. Breath sounds equal bilaterally. No wheezes , rales, or rhonchi. GASTROINTESTINAL: Abdomen soft, non-tender, nondistended. No hepato-splenomegaly , or palpable masses. No guarding. MUSCULOSKELETAL: Left foot in post op dressing. NEUROLOGICAL: Awake and alert. Psych cooperative IV line sites with no e.o infection Laboratory Laboratory Tests Test 12/15/16 12/15/16 12/15/16 12/15/16 13:40 13:41 18:45 19:50 Lactic Acid Level 1.5 Blood Gas Puncture Site SWAN BESSIE LINE Blood Gas Patient Temperature 98.6 Venous Blood pH 7.39 Venous Blood Partial Pressure 35 CO2 Venous Blood Partial Pressure 30 O2 Venous Blood HCO3 20 Venous Blood Oxygen Saturation 50 Venous Blood Oxygen Content 9.1 Venous Blood Base Excess -3.7 Oxygen Delivery Device ROOM AIR Blood Gas Inspired Oxygen 21 Prothrombin Time 16.7 Prothromb Time International 1.5 Ratio Activated Partial 35.3 Thromboplast Time Sodium Level 136 Potassium Level 3.5 Chloride Level 101 Carbon Dioxide Level 22.6 Anion Gap 12 Blood Urea Nitrogen 8 Creatinine 0.42 Estimat Glomerular Filtration 150 Rate Random Glucose 195 Hemoglobin A1c 10.5 Calcium Level 7.6 Phosphorus Level 2.6 Magnesium Level 1.9 Nasal Screen MRSA (PCR) MRSA NOT DETECTED Test 12/16/16 00:15 Sodium Level 140 Potassium Level 3.8 Chloride Level 106 Carbon Dioxide Level 23.4 Anion Gap 11 Blood Urea Nitrogen 7 Creatinine 0.38 Estimat Glomerular Filtration 168 Rate Random Glucose 167 Calcium Level 7.9 Phosphorus Level 1.6 Magnesium Level 1.8 B-Hydroxybutyrate 1.25 Date/Time Procedure Status Source Growth 12/15/16 18:10 Gram Stain Received Wound Foot Pending 12/15/16 18:10 Wound Culture Received Wound Foot Pending 12/15/16 18:10 Fungal Smear Received Wound Foot Pending 12/15/16 18:10 Fungal Culture Received Wound Foot Pending 12/15/16 13:40 Aerobic Blood Culture - Preliminary Resulted Blood Peripheral NO GROWTH IN 1 DAY 12/15/16 13:40 Anaerobic Blood Culture - Preliminary Resulted Blood Peripheral NO GROWTH IN 1 DAY 12/15/16 13:30 Gram Stain - Final Resulted Wound Foot 12/15/16 13:30 Wound Culture Resulted Wound Foot Pending Result Diagram: 12/15/16 1228 12/16/16 0015 Imaging Last Impressions Foot MRI 12/15/16 1325 Signed Impressions: Service Date/Time: Thursday, December 15, 2016 14:22 - CONCLUSION: 1. Soft tissue ulceration and numerous gas collections in the soft tissues of the forefoot and midfoot most characteristic of a necrotizing type cellulitis. 2. Osteomyelitis of the distal fourth and fifth metatarsals and possibly the proximal phalanx of the fifth toe. Remote fracture second toe. 3. No drainable fluid collections within the foot. Blair Franklin MD Foot X-Ray 12/15/16 0000 Signed Impressions: Service Date/Time: Thursday, December 15, 2016 12:25 - CONCLUSION: 1. Soft tissue swelling in extensive gas in the soft tissues consistent with the known infection. 2. No definite destructive change or osteomyelitis. 3. Osteoarthritic change. Yousuf Walton MD Chest X-Ray 12/15/16 0000 Signed Impressions: Service Date/Time: Thursday, December 15, 2016 17:01 - CONCLUSION: 1. No active disease. Mildly tortuous and atherosclerotic aorta. Blair Franklin MD Assessment and Plan Assessment and Plan Sepsis present on admission Necrotizing fascitis of left foot Osteomyelitis of left foot. DM2 uncontrolled in DKA on presentation. Recs: Continue Unasyn IV (polymicrobial and anaerobic Nec fascitis) Continue Vanco IV (target 15-20 for osteomyelitis) Continue Clindamycin IV for now (toxin neutralization effect for Nec fascitis) Follow cultures Follow clinically. Case d.w . manager of international [place] Planning note: Patient will need 6 week IV antibiotics on discharge for osteomyelitis. Type of antibiotic to be determined based on all surgery cultures and to be determined. Please look into possible home health vs SNF placement based on PT/OT recommendations. NOT ready for DC. Monica Aleman MD December 16, 2016 13:28 Monica Aleman MD December 16, 2016 13:28
[2016-12-16 15:25] LABS: BASOPHIL % 0.1 % (0.0-2.0); EOSINOPHIL % 0.2 % (0.0-4.0); HEMATOCRIT 34.2 % (35.0-46.0); HEMO FLAGS DIFF FINAL; LYMPH % 7.1 % (9.0-44.0); LYMPHOCYTE # 1.3 TH/MM3 (1.0-4.8); MEAN CELL VOLUME 83.8 FL (80.0-100.0); MEAN CORPUSCULAR HEMOGLOBIN 27.4 PG (27.0-34.0); MEAN CORPUSCULAR HGB CONC 32.7 % (32.0-36.0); MONO % 7.6 % (0.0-8.0); PLATELET COUNT 309 TH/MM3 (150-450); RED BLOOD COUNT 4.08 MIL/MM3 (4.00-5.30); RED CELL DISTRIBUTION WIDTH 13.8 % (11.6-17.2); WHITE BLOOD COUNT 18.8 TH/MM3 (4.0-11.0)
[2016-12-16 15:48] LABS: BICARBONATE 23.6 MEQ/L (21.0-32.0); MAGNESIUM 2.2 MG/DL (1.5-2.5); POTASSIUM 3.2 MEQ/L (3.5-5.1)
--- NOTE | 2016-12-16 16:10 | PD.TRANSFR ---
Transfer Summary Admission Date December 15, 2016 at 16:13 Admitting Diagnosis DKA, sepsis, necrotizing cellulitis, osteomyelitis Diagnoses: (1) Diabetic infection of left foot Diagnosis: Principal (2) Gas gangrene of foot Diagnosis: Principal (3) Necrotizing cellulitis Diagnosis: Principal (4) Osteomyelitis Diagnosis: Principal (5) DKA (diabetic ketoacidoses) Diagnosis: Principal (6) Hypokalemia Diagnosis: Principal (7) Hypertension Diagnosis: Principal (8) Leukocytosis (leucocytosis) Diagnosis: Principal (9) Sepsis Diagnosis: Principal Significant Findings Status post I&D left foot Transfer Summary/Subjective This is a 70-year-old female admitted with excising fashion left foot. Status post I&D by podiatry. Also with ketoacidosis since resolved. Objective Vital Signs Date Time Temp Pulse Resp B/P Pulse Ox O2 Delivery O2 Flow Rate FiO2 12/16/16 15:00 89 12/16/16 12:00 98.3 20 144/73 98 12/16/16 07:00 Nasal Cannula 2.00 Intake and Output 12/15/16 12/15/16 12/16/16 08:00 16:00 00:00 Intake Total 1910 ml Output Total 1110 ml Balance 800 ml Result Diagram: 12/16/16 1435 12/16/16 1435 Imaging Last Impressions Foot MRI 12/15/16 1325 Signed Impressions: Service Date/Time: Thursday, December 15, 2016 14:22 - CONCLUSION: 1. Soft tissue ulceration and numerous gas collections in the soft tissues of the forefoot and midfoot most characteristic of a necrotizing type cellulitis. 2. Osteomyelitis of the distal fourth and fifth metatarsals and possibly the proximal phalanx of the fifth toe. Remote fracture second toe. 3. No drainable fluid collections within the foot. Blair Franklin MD Foot X-Ray 12/15/16 0000 Signed Impressions: Service Date/Time: Thursday, December 15, 2016 12:25 - CONCLUSION: 1. Soft tissue swelling in extensive gas in the soft tissues consistent with the known infection. 2. No definite destructive change or osteomyelitis. 3. Osteoarthritic change. Yousuf Walton MD Chest X-Ray 12/15/16 0000 Signed Impressions: Service Date/Time: Thursday, December 15, 2016 17:01 - CONCLUSION: 1. No active disease. Mildly tortuous and atherosclerotic aorta. Blair Franklin MD Objective Remarks GENERAL: 70-year-old female in bed in no acute distress SKIN: Warm and dry. Left ankle/foot currently covered with Codey bandage. Great toe was warm. Able to wiggle. HEAD: Atraumatic. Normocephalic. EYES: Pupils equal and round. No scleral icterus. No injection or drainage. ENT: No nasal bleeding or discharge. Mucous membranes pink and moist. NECK: Trachea midline. No JVD. CARDIOVASCULAR: Regular rate and rhythm. S1, S2. No S4 without murmur RESPIRATORY: Clear to auscultation. Breath sounds equal bilaterally. GASTROINTESTINAL: Abdomen soft, non-tender, nondistended. Hepatic and splenic margins not palpable. MUSCULOSKELETAL: Extremities as above with skin. NEUROLOGICAL: Awake and alert. No obvious cranial nerve deficits. Motor grossly within normal limits. Five out of 5 muscle strength in the arms and legs. Normal speech. PSYCHIATRIC: Appropriate mood and affect; insight and judgment normal. A/P Assessment and Plan Neuro/Psych: Acetaminophen for fever Gattman/Morphine as needed for pain management. Patient has allergy to codeine/causes "swelling". Received morphine in ED without complication CV: Hypertension As needed labetalol/hydralazine for elevated blood pressure Currently on DKA protocol with D5 normal saline at 250 cc an hour and this will be discontinued today EKG revealed normal sinus rhythm with normal WV/QRS and QT intervals. Occasional PVCs Resp: Nasal cannula to maintain saturations greater than or equal to 92%. Currently on 2 L Incentive spirometry while awake Chest x-ray 12/15 reveals tortuous aorta otherwise no other acute cardiopulmonary findings GI: Patient is currently on ADA diet Protonix for GI prophylaxis Colace/as needed Senokot for bowel regimen : Celeste will be placed for accurate I's and O's in a critically ill patient Endo: History diabetes mellitus Ketoacidosis Received 5 units IV insulin ED. Currently on insulin drip see orders. We'll transition to Levemir 10 units in the morning and receiving 3 units R insulin. Sliding scale insulin/moderate Accu-Chek before meals/at bedtime and 300 Hemoglobin A1c ordered Renal: Creatinine currently within normal limits Accurate I's and O's Monitor urine output Heme: Leukocytosis Monitor CBC daily. Follow trends ID: Necrotizing fasciitis Likely osteomyelitis fourth fifth left foot metatarsal Clindamycin, Unasyn and vancomycin day #2 Blood cultures 2/wound cultures 5/6 pending Source control with podiatry Infectious disease consulted FEN: Hypokalemia Hypophosphatemia Hypo-magnesium Replace electrolytes as clinically indicated per electrolyte protocol 40 mEq KCl, 2 g mag sulfate 30 mmol sodium phosphate 1. Recheck MSK: Postop day #1 I&D left foot with resection of necrotic tissue below the fascial plane/8 x 14 cm secondary to gas gangrene EBL -300. Postoperative management per podiatry PT evaluate and treat Access - Utilize peripheral IV. Central line if indicated Prophylaxis - GI - Protonix - DVT - SCDs/heparin to start 24 hours postop Critical Care: The total care time was 35 minutes. Time to perform other separately billable procedures was not included in the critical care time. Patient is stable from a critical care medicine standpoint. We'll transfer care to hospitalist in a.m. 12/17. Orlando Her MD December 16, 2016 16:10
[2016-12-16] MEDS: HEPARIN SODIUM - SQ 10,000 UNITS/ML VIAL SQ SCH (17:29)
[2016-12-16] MEDS: POTASSIUM CHLOR 10 MEQ PREMIX 100 ML IV SCH ×3 (17:29→19:52)
[2016-12-16] MEDS: VANCOMYCIN INJ 1,350 MG in SODIUM CHLORID 0.9% 500 ML INJ 500 ML IV SCH (21:09)
[2016-12-16] MEDS: POTASSIUM PHOSPHATE/SODIUM PHOSPHATE 250 MG TAB PO SCH (21:48)
[2016-12-17] VITALS (8 sets, daily range): BP systolic 129–170; BP diastolic 70–82; PULSE 84–95; RESP 16–17; TEMP 98.1–101; O2SAT 96–98
[2016-12-17] MEDS: CLINDAMYCIN INJ 900 MG in SODIUM CHLORIDE 0.9% INJ 100 ML IV SCH ×4 (00:22→23:23)
[2016-12-17] MEDS: AMPICILLIN-SULBACTAM INJ 3 GM in SODIUM CHLORIDE 0.9% INJ 100 ML IV SCH ×4 (01:47→21:56)
[2016-12-17] MEDS: ENALAPRILAT 2.5 MG/2 ML VIAL IV PUSH PRN ×2 (01:47→17:34)
[2016-12-17] MEDS: CHLORHEXIDINE GLUCONATE 2 % 1 PACK (2 CLOTHS) TOP SCH (03:38)
[2016-12-17 05:07] LABS: AUTOMATED NEUTROPHIL # 11.3 TH/MM3 (1.8-7.7); BASOPHIL % 0.1 % (0.0-2.0); EOSINOPHIL # 0.1 TH/MM3 (0-0.4); EOSINOPHIL % 0.4 % (0.0-4.0); HEMATOCRIT 31.8 % (35.0-46.0); HEMO FLAGS DIFF FINAL; LYMPH % 12.4 % (9.0-44.0); LYMPHOCYTE # 1.8 TH/MM3 (1.0-4.8); MEAN CELL VOLUME 82.9 FL (80.0-100.0); MEAN CORPUSCULAR HEMOGLOBIN 27.1 PG (27.0-34.0); MEAN CORPUSCULAR HGB CONC 32.7 % (32.0-36.0); MONO % 9.1 % (0.0-8.0); PLATELET COUNT 286 TH/MM3 (150-450); RED BLOOD COUNT 3.84 MIL/MM3 (4.00-5.30); RED CELL DISTRIBUTION WIDTH 13.9 % (11.6-17.2); WHITE BLOOD COUNT 14.4 TH/MM3 (4.0-11.0)
[2016-12-17 05:32] LABS: ALT (GPT) 9 U/L (10-53); ANION GAP 8 MEQ/L (5-15); AST (GOT) 7 U/L (15-37); BLOOD UREA NITROGEN 4 MG/DL (7-18); CHLORIDE 106 MEQ/L (98-107); GLOMERULAR FILTRATION RATE 145 ML/MIN (>89); POTASSIUM 3.3 MEQ/L (3.5-5.1); SODIUM (NA) 139 MEQ/L (136-145)
[2016-12-17 05:35] LABS: ALKALINE PHOSPHATASE 147 U/L (45-117); TOTAL BILIRUBIN ADULT 0.3 MG/DL (0.2-1.0)
[2016-12-17 05:39] LABS: CREATINE KINASE 25 U/L (26-192)
[2016-12-17] MEDS: POTASSIUM PHOSPHATE/SODIUM PHOSPHATE 250 MG TAB PO SCH ×2 (05:59→17:32)
[2016-12-17] MEDS: HEPARIN SODIUM - SQ 10,000 UNITS/ML VIAL SQ SCH ×2 (05:59→16:46)
[2016-12-17] MEDS: INSULIN NovoLIN REGULAR SUPPLEMENTAL SCALE SQ SCH ×4 (06:03→22:01)
[2016-12-17] MEDS: PANTOPRAZOLE SODIUM 40 MG VIAL IV SCH (10:03)
[2016-12-17] MEDS: INSULIN DETEMIR 100 UNITS/ML VIAL SQ SCH (10:03)
[2016-12-17] MEDS: DOCUSATE SODIUM 100 MG CAP PO SCH ×2 (10:03→21:56)
[2016-12-17] MEDS: SODIUM CHLORIDE 0.9% FLUSH 10 ML FLUSH IV FLUSH SCH ×2 (10:04→21:00)
--- NOTE | 2016-12-17 12:47 | PD.POD ---
Subjective Podiatric Problems 2 days status post gas gangrene and necrotizing fasciitis of the left foot Pain scale used: 0-10 numeric scale Pain score: 1 Remarks 71-year-old diabetic female who presented to [place] emergency department Saturday with a diabetic foot infection. Radiographs and MRI showed gas gangrene with necrotizing fasciitis and osteomyelitis of the fourth and fifth met heads. Patient was taken to the OR for an incision and drainage and resection of necrotic tissue of the left foot. Tissue culture obtained during the procedure is pending. Patient is feeling better today and is able to eat. Past Med/Surg/Social History Past Medical History PFS Reviewed: Yes Endocrine: REPORTS HX OF: Diabetes mellitus Social History Smoking Status: Former Smoker Review of Systems Notes No Changes in her 14 point review of systems exam from the previous visit Objective Vital Signs Vital Signs Date Time Temp Pulse Resp B/P Pulse Ox O2 Delivery O2 Flow Rate FiO2 12/17/16 12:00 98.7 88 16 168/74 98 12/17/16 11:12 97 12/17/16 08:00 98.1 86 17 169/82 97 12/17/16 04:00 98.2 84 17 129/70 96 12/17/16 00:00 101.0 91 17 170/79 97 12/16/16 20:00 99.9 91 17 158/72 97 12/16/16 20:00 97 Room Air 12/16/16 16:00 98.2 87 17 145/70 99 12/16/16 15:00 89 Coded Allergies: Codeine (Verified Allergy, Severe, 03/31/08) Medications and IVs Current Medications Sodium Chloride (NS 1000 ml Inj) 1,000 ml @ 1,000 mls/hr Q1H IV Last administered on 12/15/16 15:29; Start 12/15/16 at 13:07; Stop 12/15/16 at 14:06; Status DC Morphine Sulfate (Morphine Inj) 4 mg ONCE ONCE IV PUSH Last administered on 15:30; Start 12/15/16 at 13:15; Stop 12/15/16 at 13:16; Status DC Ondansetron HCl 4 mg 4 mg ONCE ONCE IV PUSH Last administered on 12/15/16 15: 29; Start 12/15/16 at 13:15; Stop 12/15/16 at 13:16; Status DC Vancomycin HCl 1000 mg/Sodium Chloride 250 ml @ 250 mls/hr ONCE ONCE IV Last administered on 12/15/16 17:00; Start 12/15/16 at 13:15; Stop 12/15/16 at 14:14; Status DC Piperacillin Sod/ Tazobactam Sod 50 ml @ 100 mls/hr ONCE ONCE IV ; Start at 13:15; Stop 12/15/16 at 13:23; Status DC Sodium Chloride (NS 1000 ml Inj) 1,000 ml @ 1,000 mls/hr Q1H IV Last administered on 12/15/16 15:29; Start 12/15/16 at 13:12; Stop 12/15/16 at 14:11; Status DC Potassium Chloride 40 meq 40 meq ONCE ONCE PO Last administered on 12/15/16 15 :20; Start 12/15/16 at 13:30; Stop 12/15/16 at 13:31; Status DC Ampicillin Sodium/ Sulbactam Sodium 3 gm/Sodium Chloride 100 ml @ 200 mls/hr ONCE ONCE IV Last administered on 12/15/16 15:05; Start 12/15/16 at 13:30; Stop 12/15/16 at 13:59; Status DC Clindamycin Phosphate 600 mg/ Sodium Chloride 104 ml @ 208 mls/hr ONCE ONCE IV Last administered on 12/15/16 15:30; Start 12/15/16 at 13:30; Stop 12/15/16 at 13:59; Status DC Potassium Chloride (KCl 10 Meq Premix Inj) 100 ml @ 100 mls/hr BOLUS ONCE IV Last administered on 12/15/16 15:50; Start 12/15/16 at 13:30; Stop 12/15/16 at 15: 55; Status DC Gadodiamide 14 ml 14 ml STK-MED ONCE IV Last administered on 12/15/16 14:35; Start 12/15/16 at 14:35; Stop 12/15/16 at 14:36; Status DC Sodium Chloride 1,000 ml @ 250 mls/hr Q4H IV Last administered on 12/15/16 22: 07; Start 12/15/16 at 15:38; Stop 12/16/16 at 03:52; Status DC Dextrose/Sodium Chloride 1,000 ml @ 200 mls/hr Q5H IV Last administered on 12/15 23:58; Start 12/15/16 at 15:38; Stop 12/16/16 at 03:52; Status DC Insulin Human Regular 100 units/ Sodium Chloride 100 ml @ 0 mls/hr TITRATE IV Last administered on 12/15/16 20:11; Start 12/15/16 at 15:45; Stop 12/16/16 at 03: 52; Status DC Potassium Chloride 100 ml @ 100 mls/hr Q1H PRN IV SEE LABEL COMMENTS; Start at 15:45; Stop 12/16/16 at 03:52; Status DC Potassium Chloride 100 ml @ 50 mls/hr Q2H PRN IV SEE LABEL COMMENTS; Start 12/15/16 at 15:45; Stop 12/16/16 at 03:52; Status DC Potassium Chloride 100 ml @ 100 mls/hr Q1H PRN IV SEE LABEL COMMENTS Last administered on 12/16/16 02:58; Start 12/15/16 at 15:45; Stop 12/16/16 at 03:52; Status DC Potassium Chloride 100 ml @ 100 mls/hr Q1H PRN IV SEE LABEL COMMENTS; Start at 15:45; Stop 12/16/16 at 03:52; Status DC Potassium Chloride 100 ml @ 50 mls/hr Q2H PRN IV SEE LABEL COMMENTS; Start 12/15/16 at 15:45; Stop 12/16/16 at 03:52; Status DC Potassium Chloride 100 ml @ 50 mls/hr Q2H PRN IV SEE LABEL COMMENTS; Start 12/15/16 at 15:45; Stop 12/16/16 at 03:52; Status DC Potassium Chloride 100 ml @ 50 mls/hr Q2H PRN IV SEE LABEL COMMENTS; Start 12/15/16 at 15:45; Stop 12/16/16 at 03:52; Status DC Potassium Chloride (KCl 20 Meq Premix Inj) 100 ml @ 50 mls/hr Q2H PRN IV SEE LABEL COMMENTS; Start 12/15/16 at 15:45; Stop 12/16/16 at 03:52; Status DC Sodium Bicarbonate (Sodium Bicarbonate 8.4% Inj) 100 meq UNSCH PRN IV SEE LABEL COMMENTS; Start 12/15/16 at 15:45; Stop 12/16/16 at 03:52; Status DC Sodium Bicarbonate 50 meq 50 meq UNSCH PRN IV SEE LABEL COMMENTS; Start at 15:45; Stop 12/16/16 at 03:52; Status DC Sodium Phosphate/ Sodium Chloride (Sodium Phosphate Inj/NS Inj) 105 ml @ 25 mls /hr UNSCH PRN IV SEE LABEL COMMENTS; Start 12/15/16 at 15:45; Stop 12/16/16 at 03 :52; Status DC Insulin Human Regular (NovoLIN R INJ) 5 units BOLUS ONCE IV PUSH ; Start at 15:45; Stop 12/15/16 at 15:51; Status DC Sodium Chloride (NS Flush) 2 ml UNSCH PRN IV FLUSH FLUSH AFTER USING IV ACCESS ; Start 12/15/16 at 17:00; Stop 12/15/16 at 18:55; Status DC Sodium Chloride (NS Flush) 2 ml BID IV FLUSH ; Start 12/15/16 at 21:00; Stop 12/15 at 21:00; Status DC Acetaminophen (Tylenol) 650 mg Q6H PRN PO PAIN 1-10 AND/OR FEVER >101F Last administered on 12/17/16 00:23; Start 12/15/16 at 17:00 Morphine Sulfate (Morphine Inj) 2 mg Q2H PRN IV PAIN SCALE 6 TO 10; Start at 17:00 Pantoprazole Sodium (Protonix Inj) 40 mg DAILY IV Last administered on 10:03; Start 12/16/16 at 09:00 Ondansetron HCl (Zofran Inj) 4 mg Q6H PRN IV NAUSEA OR VOMITING Last administered on 12/15/16 19:28; Start 12/15/16 at 17:00 Docusate Sodium (Colace) 100 mg BID PO Last administered on 12/17/16 10:03; Start 12/15/16 at 21:00 Sennosides (Senokot) 17.2 mg Q12H PRN PO CONSTIPATION; Start 12/15/16 at 17:00 Albuterol Sulfate (Albuterol Neb) 2.5 mg Q2HR NEB PRN INH SOB/WHEEZING; Start 12/15/16 at 17:00 Heparin Sodium (Porcine) (Heparin Inj) 5,000 units Q12H SQ Last administered on 12/17/16 05:59; Start 12/16/16 at 18:00 Miscellaneous Information 1 [id number] XX ; Start 12/15/16 at 17:00 Chlorhexidine Gluconate (Chlorhexidine 2% Cloth) 3 pack Taper DAILY@04 TOP Last administered on 12/16/16 04:00; Start 12/16/16 at 04:00; Stop 12/12/17 at 03: 59 Chlorhexidine Gluconate 3 pack 3 pack UNSCH PRN TOP HYGIENIC CARE; Start at 17:00 Clindamycin Phosphate 900 mg/ Sodium Chloride 106 ml @ 212 mls/hr Q8H IV Last administered on 12/17/16 10:03; Start 12/16/16 at 00:00 Pharmacy Profile Note 0 ml @ 0 mls/hr UNSCH OTHER ; Start 12/15/16 at 17:00 Ampicillin Sodium/ Sulbactam Sodium 3 gm/Sodium Chloride 100 ml @ 200 mls/hr Q6H IV Last administered on 12/17/16 11:20; Start 12/15/16 at 21:00 Potassium Chloride 100 ml @ 50 mls/hr Q2H PRN IV SEE LABEL COMMENTS; Start 12/15/16 at 17:00; Stop 12/16/16 at 07:03; Status DC Potassium Chloride 100 ml @ 50 mls/hr Q2H PRN IV SEE LABEL COMMENTS; Start 12/15/16 at 17:00; Stop 12/16/16 at 07:03; Status DC Potassium Chloride 100 ml @ 50 mls/hr Q2H PRN IV SEE LABEL COMMENTS; Start 12/15/16 at 17:00; Stop 12/16/16 at 07:03; Status DC Potassium Chloride 100 ml @ 50 mls/hr Q2H PRN IV SEE LABEL COMMENTS; Start 12/15/16 at 17:00; Stop 12/16/16 at 07:03; Status DC Sodium Phosphate 15 mmol/Sodium Chloride 105 ml @ 25 mls/hr UNSCH PRN IV SEE LABEL COMMENTS; Start 12/15/16 at 17:00; Stop 12/16/16 at 07:03; Status DC Magnesium Sulfate/ Sodium Chloride (Magnesium Sulfate Inj/NS Inj) 100 ml @ 50 mls/hr UNSCH PRN IV For Magnesium 0.9 - 1.1 mg/dL; Start 12/15/16 at 17:00; Stop 12/16/16 at 07:03; Status DC Magnesium Oxide 800 mg 800 mg UNSCH PRN PO For Magnesium 1.2 - 1.6 mg/dL; Start 12/15/16 at 17:00; Stop 12/16/16 at 07:03; Status DC Magnesium Sulfate/ Sodium Chloride (Magnesium Sulfate Inj/NS Inj) 100 ml @ 50 mls/hr UNSCH PRN IV For Magnesium 1.2 - 1.6 mg/dL; Start 12/15/16 at 17:00; Stop 12/16/16 at 07:03; Status DC Potassium Phosphate 2000 mg 2,000 mg Q4H PRN PO For Phosphorus < 2.5 mg/dL; Start 12/15/16 at 17:00; Stop 12/16/16 at 07:03; Status DC Sodium Phosphate/ Sodium Chloride (Sodium Phosphate Inj/NS 250 ml Inj) 250 ml @ 42 mls/hr UNSCH PRN IV For Phosphorus < 2.5 mg/dL Last administered on 02:58; Start 12/15/16 at 17:00; Stop 12/16/16 at 07:03; Status DC Potassium Phosphate (K-Phos) 2,000 mg UNSCH PRN PO/TUBE SEE LABEL COMMENTS; Start 12/15/16 at 17:00; Stop 12/16/16 at 07:03; Status DC Labetalol HCl (Trandate Inj) 10 mg Q1HR PRN IV PUSH SBP>160, DBP>90, HR>65; Start 12/15/16 at 17:00; Stop 12/17/16 at 01:22; Status DC Hydralazine HCl (Apresoline Inj) 10 mg Q1HR PRN IV PUSH SBP>160, DBP>90 Last administered on 12/15/16 21:38; Start 12/15/16 at 17:00; Stop 12/17/16 at 01:22; Status DC Fentanyl Citrate 100 mcg 100 mcg STK-MED ONCE .ROUTE ; Start 12/15/16 at 17:53; Stop 12/15/16 at 17:54; Status DC Vancomycin HCl/ Sodium Chloride (Vancomycin Inj/ NS 500 ml Inj) 513.5 ml @ 250 mls/hr Q12H IV Last administered on 12/16/16 02:58; Start 12/16/16 at 03:00; Stop 12/16/16 at 10:17; Status DC Miscellaneous Information SPECIFIC LAB TO BE DRAWN:[facility] TROUGH DATE TO BE DRRosette. ONCE ONCE .XX ; Start 12/18/16 at 08:45; Stop 12/18/16 at 08:46 Sodium Chloride (NS Flush) 2 ml UNSCH PRN IV FLUSH FLUSH AFTER USING IV ACCESS ; Start 12/15/16 at 18:30 Sodium Chloride (NS Flush) 2 ml BID IV FLUSH Last administered on 12/17/16 10: 04; Start 12/15/16 at 21:00 Miscellaneous Information (Post-op Orders (for Pharmacy)) STAT ONCE XX ; Start 12/15/16 at 18:26; Stop 12/15/16 at 18:50; Status DC Hydromorphone HCl (Dilaudid Pf Inj) 1 mg Q3H PRN IV BREAKTHROUGH PAIN; Start at 18:30; Stop 12/16/16 at 07:03; Status DC Hydromorphone HCl (Dilaudid) 1 mg Q4H PRN PO PAIN SCALE 3 TO 5; Start 12/15/16 at 18:30; Stop 12/16/16 at 07:03; Status DC Hydromorphone HCl (Dilaudid) 2 mg Q4H PRN PO PAIN SCALE 6 TO 10; Start 12/15/16 at 18:30; Stop 12/16/16 at 07:03; Status DC Naloxone HCl (Narcan Inj) 0.4 mg UNSCH PRN IV SEE LABEL COMMENTS; Start at 18:30 Miscellaneous (Pill Splitter) 1 ea UNSCH PRN OTHER SEE LABEL COMMENTS; Start at 19:00 Miscellaneous Information 1 ONCE ONCE .XX ; Start 12/16/16 at 04:00; Stop at 04:01; Status DC Miscellaneous Information 1 ONCE ONCE .XX ; Start 12/16/16 at 04:00; Stop at 04:01; Status DC Insulin Detemir (Levemir Inj) 10 units DAILY SQ Last administered on 12/17/16 10:03; Start 12/16/16 at 09:00 Dextrose (D50w (Vial) Inj) 25 ml UNSCH PRN IV PUSH HYPOGLYCEMIA-SEE COMMENTS; Start 12/16/16 at 04:00 Glucagon (Glucagon Inj) 1 mg UNSCH PRN OTHER HYPOGLYCEMIA-SEE COMMENTS; Start 12/16/16 at 04:00 Dextrose (D50w (Vial) Inj) 25 ml UNSCH PRN IV PUSH HYPOGLYCEMIA-SEE COMMENTS; Start 12/16/16 at 04:00; Stop 12/16/16 at 04:00; Status DC Glucagon (Glucagon Inj) 1 mg UNSCH PRN OTHER HYPOGLYCEMIA-SEE COMMENTS; Start 12/16/16 at 04:00; Stop 12/16/16 at 04:00; Status DC Dextrose (D50w (Vial) Inj) 25 ml UNSCH PRN IV PUSH HYPOGLYCEMIA-SEE COMMENTS; Start 12/16/16 at 04:00; Stop 12/16/16 at 04:00; Status DC Glucagon 1 mg 1 mg UNSCH PRN OTHER HYPOGLYCEMIA-SEE COMMENTS; Start 12/16/16 at 04:00; Stop 12/16/16 at 04:00; Status DC Insulin Human Regular/Sodium Chloride (NovoLIN R (IV INFUSION)/NS Inj) 100 ml @ 0 mls/hr TITRATE IV ; Start 12/16/16 at 04:00; Stop 12/16/16 at 07:03; Status DC Dextrose (D50w (Vial) Inj) 25 ml UNSCH PRN IV PUSH HYPOGLYCEMIA-SEE COMMENTS; Start 12/16/16 at 07:00; Status UNV Glucagon (Glucagon Inj) 1 mg UNSCH PRN OTHER HYPOGLYCEMIA-SEE COMMENTS; Start 12/16/16 at 07:00; Status UNV Insulin Human Regular (NovoLIN R SUPPLEMENTAL SCALE) 1 ACHS SLIDING SCALE SQ Last administered on 12/17/16 11:23; Start 12/16/16 at 07:00 Potassium Chloride 30 meq 30 meq ONCE ONCE PO Last administered on 12/16/16 08 :32; Start 12/16/16 at 07:15; Stop 12/16/16 at 07:16; Status DC Magnesium Sulfate/ Dextrose 100 ml @ 100 mls/hr Q1H IV Last administered on 09:33; Start 12/16/16 at 07:00; Stop 12/16/16 at 08:59; Status DC Sodium Phosphate/ Sodium Chloride (Sodium Phosphate Inj/NS 250 ml Inj) 260 ml @ 43.333 mls/ hr ONCE ONCE IV ; Start 12/16/16 at 08:00; Stop 12/16/16 at 13:59; Status DC Insulin Human Regular (NovoLIN R INJ) 3 units ONCE ONCE SQ Last administered on 12/16/16 08:33; Start 12/16/16 at 07:00; Stop 12/16/16 at 07:04; Status DC Acetaminophen/ Hydrocodone Bitart 1 tab 1 tab Q4H PRN PO PAIN SCALE 1 TO 5; Start 12/16/16 at 07:15 Vancomycin HCl/ Sodium Chloride (Vancomycin Inj/ NS 500 ml Inj) 513.5 ml @ 250 mls/hr Q18H IV Last administered on 12/16/16 21:09; Start 12/16/16 at 21:00 Potassium Chloride 30 meq 30 meq ONCE ONCE PO Last administered on 12/16/16 17 :29; Start 12/16/16 at 16:15; Stop 12/16/16 at 16:16; Status DC Potassium Chloride (KCl 10 Meq Premix Inj) 100 ml @ 100 mls/hr Q1H IV Last administered on 12/16/16 19:52; Start 12/16/16 at 17:00; Stop 12/16/16 at 19:59; Status DC Potassium Phos/ Sodium Phos (K-Phos Neutral) 250 mg Q8HR PO Last administered on 12/17/16 05:59; Start 12/16/16 at 22:00; Stop 12/17/16 at 14:01 Enalaprilat (Vasotec Inj) 2.5 mg Q6H PRN IV PUSH bp>160/90 Last administered on 12/17/16 01:47; Start 12/17/16 at 01:30 Other Results Laboratory Tests Test 12/16/16 12/17/16 14:35 04:50 White Blood Count 18.8 TH/MM3 14.4 TH/MM3 Red Blood Count 4.08 MIL/MM3 3.84 MIL/MM3 Hemoglobin 11.2 GM/DL 10.4 GM/DL Hematocrit 34.2 % 31.8 % Mean Corpuscular Volume 83.8 FL 82.9 FL Mean Corpuscular Hemoglobin 27.4 PG 27.1 PG Mean Corpuscular Hemoglobin 32.7 % 32.7 % Concent Red Cell Distribution Width 13.8 % 13.9 % Platelet Count 309 TH/MM3 286 TH/MM3 Mean Platelet Volume 8.8 FL 8.3 FL Neutrophils (%) (Auto) 85.0 % 78.0 % Lymphocytes (%) (Auto) 7.1 % 12.4 % Monocytes (%) (Auto) 7.6 % 9.1 % Eosinophils (%) (Auto) 0.2 % 0.4 % Basophils (%) (Auto) 0.1 % 0.1 % Neutrophils # (Auto) 16.0 TH/MM3 11.3 TH/MM3 Lymphocytes # (Auto) 1.3 TH/MM3 1.8 TH/MM3 Monocytes # (Auto) 1.4 TH/MM3 1.3 TH/MM3 Eosinophils # (Auto) 0.0 TH/MM3 0.1 TH/MM3 Basophils # (Auto) 0.0 TH/MM3 0.0 TH/MM3 CBC Comment DIFF FINAL DIFF FINAL Differential Comment Laboratory Tests Test 12/15/16 12/15/16 12/16/16 12/16/16 13:40 18:45 00:15 14:35 Lactic Acid Level 1.5 mmol/L Sodium Level 136 MEQ/L 140 MEQ/L 139 MEQ/L Potassium Level 3.5 MEQ/L 3.8 MEQ/L 3.2 MEQ/L Chloride Level 101 MEQ/L 106 MEQ/L 106 MEQ/L Carbon Dioxide Level 22.6 MEQ/L 23.4 MEQ/L 23.6 MEQ/L Anion Gap 12 MEQ/L 11 MEQ/L 9 MEQ/L Blood Urea Nitrogen 8 MG/DL 7 MG/DL 5 MG/DL Creatinine 0.42 MG/DL 0.38 MG/DL 0.46 MG/DL Estimat Glomerular Filtration 150 ML/MIN 168 ML/MIN 135 ML/MIN Rate Random Glucose 195 MG/DL 167 MG/DL 175 MG/DL Hemoglobin A1c 10.5 % Calcium Level 7.6 MG/DL 7.9 MG/DL 7.8 MG/DL Phosphorus Level 2.6 MG/DL 1.6 MG/DL 2.4 MG/DL Magnesium Level 1.9 MG/DL 1.8 MG/DL 2.2 MG/DL Test 12/17/16 04:50 Sodium Level 139 MEQ/L Potassium Level 3.3 MEQ/L Chloride Level 106 MEQ/L Carbon Dioxide Level 25.0 MEQ/L Anion Gap 8 MEQ/L Blood Urea Nitrogen 4 MG/DL Creatinine 0.43 MG/DL Estimat Glomerular Filtration 145 ML/MIN Rate Random Glucose 124 MG/DL Lactic Acid Level 1.0 mmol/L Calcium Level 7.9 MG/DL Phosphorus Level 2.7 MG/DL Magnesium Level 2.0 MG/DL Total Bilirubin 0.3 MG/DL Aspartate Amino Transf 7 U/L (AST/SGOT) Alanine Aminotransferase 9 U/L (ALT/SGPT) Alkaline Phosphatase 147 U/L Total Creatine Kinase 25 U/L Total Protein 5.7 GM/DL Albumin 1.8 GM/DL Microbiology Date/Time Procedure Status Source Growth 12/15/16 13:30 Gram Stain - Final Complete Wound Foot 12/15/16 13:30 Wound Culture - Final Complete Group B Beta Strep Mixed Anaerobes Gram Positive Cocci Gram Variable Tim 12/15/16 13:30 Fungal Smear Ordered Wound Foot Pending 12/15/16 13:30 Fungal Culture Ordered Wound Foot Pending 12/15/16 13:40 Aerobic Blood Culture - Preliminary Resulted Blood Peripheral NO GROWTH IN 2 DAYS 12/15/16 13:40 Anaerobic Blood Culture - Preliminary Resulted Blood Peripheral NO GROWTH IN 2 DAYS 12/15/16 13:40 Aerobic Blood Culture - Preliminary Resulted Blood Peripheral NO GROWTH IN 2 DAYS 12/15/16 13:40 Anaerobic Blood Culture - Preliminary Resulted Blood Peripheral NO GROWTH IN 2 DAYS 12/15/16 18:10 Gram Stain - Final Resulted Wound Foot 12/15/16 18:10 Wound Culture Resulted Wound Foot Pending 12/15/16 18:10 Fungal Smear - Final Resulted Wound Foot NO FUNGAL ELEMENTS SEEN. 12/15/16 18:10 Fungal Culture Resulted Wound Foot Pending Exam-Podiatry Constitutional General appearance: comfortable Nutritional status: normal Orientation: alert and oriented x3 Dermatological Exam Other: Scars, Surgery,Injury Large defect plantar aspect of the left foot. Cyanotic changes of the third toe. Still some pustular changes seen in the wound. Remainder of forefoot is bluish in coloration. Vascular/Lymphatic Exam R Dorsails Pedis: Palpable L Dorsails Pedis: Palpable R Posterior Tibial: Palpable L Posterior Tibial: Palpable Neurologic Exam Present on right: Tingling, Paraesthesia Present on left: Tingling, Paraesthesia Assessment & Plan Diagnosis: (1) Necrotizing cellulitis Status: Acute (2) Abscess of foot Status: Acute (3) Diabetic infection of left foot Status: Acute (4) Gas gangrene of foot Status: Acute (5) DKA (diabetic ketoacidoses) Status: Acute (6) Osteomyelitis Status: Acute A/P PLAN: Dressing changed with Maxorb extra AG. I doubt the patient will be able since sustain a viable foot. At this point I feel the patient's best option would be a below-knee amputation. Patient was seen today with Dr. Newsome from infectious disease. She agrees with me that the patient's best option would be an amputation below the knee. Patient not a candidate for transplant because of the tissue defect. Vascular surgery consult ordered. Problem Qualifiers (1) DKA (diabetic ketoacidoses): Qualified Code: E13.10 - Diabetic ketoacidosis without coma associated with other specified diabetes mellitus (2) Osteomyelitis: Qualified Code: M86.9 - Osteomyelitis, unspecified site, unspecified type Oliver Nunez DPM December 17, 2016 12:47
--- NOTE | 2016-12-17 14:04 | PD.VS.CON ---
History of Present Illness Chief Complaint: LEFT foot infection Consult Requested by: Dr. Nunez History of Present Illness 71 yo female who was admitted over the week-end for gas gangrene L foot. She previously was unaware that she was a diabetic. She had blood glucose of 700 per patient but now is 160. She was taken to OR for drainage by podiatry and on assessment of wound today, podiatry has determined that she needs a BKA. I was consulted for 2nd opinion and to assist with BKA. Past/Family/Social History Past Medical History DM Past Surgical History kt per patient Social History she lives at home and took care of her mother until her 3y ago at 89 yo Family History DM in grandfather Home Medications Discontinued Reported Medications Glipizide (Glucotrol)5 Mg Tab5 Mg PO BID Ref 0 03/31/08 Metformin ER 24 HR 1,000 Mg Tab1,000 Mg PO BID Ref 0 03/31/08 Discontinued Scripts Hydrocodone-Acetaminophen (Lortab 5/500)5 Mg/500 Mg Tab1-2 Tab PO Q4-6HPRN #30 Ref 0 FOR PAIN Prov:CORINNE MORRELL M.D. 03/31/08 Coded Allergies: Codeine (Verified Allergy, Severe, 03/31/08) Review of Systems Constitutional: COMPLAINS OF: Fever, Chills Cardiovascular: COMPLAINS OF: Lower Extremity Edema, DENIES: Chest pain, Dyspnea on Exertion Physical Exam Vitals/I&O Date Time Temp Pulse Resp B/P Pulse Ox O2 Delivery O2 Flow Rate FiO2 12/17/16 12:00 98.7 88 16 168/74 98 12/17/16 11:12 97 12/17/16 08:00 98.1 86 17 169/82 97 12/17/16 04:00 98.2 84 17 129/70 96 12/17/16 00:00 101.0 91 17 170/79 97 12/16/16 20:00 99.9 91 17 158/72 97 12/16/16 20:00 97 Room Air 12/16/16 16:00 98.2 87 17 145/70 99 12/16/16 15:00 89 12/17/16 12/17/16 12/17/16 07:00 15:00 23:00 Intake Total 1140 ml Output Total 450 ml Balance 690 ml Neuro: awake alert and no distress HEENT: NC/AT; anicteric sclera Neck: no JVD Heart: reg rate Lungs: nonlabored breathing Abdomen: soft, NT Vascular: palpable L DP Extremities: necrotic, foul smelling L foot; erythema extends to proximal foot but not in calf; calf with mild edema but is nontender Laboratory Tests Test 12/16/16 12/17/16 14:35 04:50 White Blood Count 18.8 14.4 Red Blood Count 4.08 3.84 Hemoglobin 11.2 10.4 Hematocrit 34.2 31.8 Mean Corpuscular Volume 83.8 82.9 Mean Corpuscular Hemoglobin 27.4 27.1 Mean Corpuscular Hemoglobin 32.7 32.7 Concent Red Cell Distribution Width 13.8 13.9 Platelet Count 309 286 Mean Platelet Volume 8.8 8.3 Neutrophils (%) (Auto) 85.0 78.0 Lymphocytes (%) (Auto) 7.1 12.4 Monocytes (%) (Auto) 7.6 9.1 Eosinophils (%) (Auto) 0.2 0.4 Basophils (%) (Auto) 0.1 0.1 Neutrophils # (Auto) 16.0 11.3 Lymphocytes # (Auto) 1.3 1.8 Monocytes # (Auto) 1.4 1.3 Eosinophils # (Auto) 0.0 0.1 Basophils # (Auto) 0.0 0.0 CBC Comment DIFF FINAL DIFF FINAL Differential Comment Sodium Level 139 139 Potassium Level 3.2 3.3 Chloride Level 106 106 Carbon Dioxide Level 23.6 25.0 Anion Gap 9 8 Blood Urea Nitrogen 5 4 Creatinine 0.46 0.43 Estimat Glomerular Filtration 135 145 Rate Random Glucose 175 124 Calcium Level 7.8 7.9 Phosphorus Level 2.4 2.7 Magnesium Level 2.2 2.0 Lactic Acid Level 1.0 Total Bilirubin 0.3 Aspartate Amino Transf 7 (AST/SGOT) Alanine Aminotransferase 9 (ALT/SGPT) Alkaline Phosphatase 147 Total Creatine Kinase 25 Total Protein 5.7 Albumin 1.8 Date/Time Procedure Status Source Growth 12/15/16 18:10 Gram Stain - Final Resulted Wound Foot 12/15/16 18:10 Wound Culture Resulted Wound Foot Pending 12/15/16 18:10 Fungal Smear - Final Resulted Wound Foot NO FUNGAL ELEMENTS SEEN. 12/15/16 18:10 Fungal Culture Resulted Wound Foot Pending 12/15/16 13:40 Aerobic Blood Culture - Preliminary Resulted Blood Peripheral NO GROWTH IN 2 DAYS 12/15/16 13:40 Anaerobic Blood Culture - Preliminary Resulted Blood Peripheral NO GROWTH IN 2 DAYS 12/15/16 13:30 Fungal Smear Ordered Wound Foot Pending 12/15/16 13:30 Fungal Culture Ordered Wound Foot Pending Assessment and Plan Plan Gas gangrene and underwent an attempt at limb salvage, unsuccessful. I agree that she needs a BKA and given the degree of infection I will perform in a staged manner (open BKA followed by formal closure several days later). The patient understands this and agrees with the plan. Because her systemic symptoms have improved (DKA treated and WBC down), I am ok waiting until tomorrow which is the patient's preference given that today is her birthday. Plan open BKA tomorrow (Saturday). Kamaljit Lin MD December 17, 2016 14:04
--- NOTE | 2016-12-17 15:48 | HHI.PR ---
Subjective Remarks afebrile, no pain complains this moment looking forward to surgery tomorrow Objective Vitals Vital Signs Date Time Temp Pulse Resp B/P Pulse Ox O2 Delivery O2 Flow Rate FiO2 12/17/16 12:00 98.7 88 16 168/74 98 12/17/16 11:12 97 12/17/16 08:00 98.1 86 17 169/82 97 12/17/16 04:00 98.2 84 17 129/70 96 12/17/16 00:00 101.0 91 17 170/79 97 12/16/16 20:00 99.9 91 17 158/72 97 12/16/16 20:00 97 Room Air 12/16/16 16:00 98.2 87 17 145/70 99 I/O 12/16/16 12/16/16 12/16/16 12/17/16 12/17/16 12/17/16 07:00 15:00 23:00 07:00 15:00 23:00 Intake Total 2453 ml 1800 ml 1096 ml 1140 ml Output Total 325 ml 500 ml 600 ml 450 ml Balance 2128 ml 1300 ml 496 ml 690 ml Intake Oral 240 ml 480 ml 240 ml 240 ml IV Total 2213 ml 1320 ml 856 ml 900 ml Output Urine Total 325 ml 500 ml 600 ml 450 ml Stool Total 0 ml Result Diagram: 12/17/16 0450 12/17/16 0450 Imaging Last Impressions Foot MRI 12/15/16 1325 Signed Impressions: Service Date/Time: Thursday, December 15, 2016 14:22 - CONCLUSION: 1. Soft tissue ulceration and numerous gas collections in the soft tissues of the forefoot and midfoot most characteristic of a necrotizing type cellulitis. 2. Osteomyelitis of the distal fourth and fifth metatarsals and possibly the proximal phalanx of the fifth toe. Remote fracture second toe. 3. No drainable fluid collections within the foot. Blair Franklin MD Foot X-Ray 12/15/16 0000 Signed Impressions: Service Date/Time: Thursday, December 15, 2016 12:25 - CONCLUSION: 1. Soft tissue swelling in extensive gas in the soft tissues consistent with the known infection. 2. No definite destructive change or osteomyelitis. 3. Osteoarthritic change. Yousuf Walton MD Chest X-Ray 12/15/16 0000 Signed Impressions: Service Date/Time: Thursday, December 15, 2016 17:01 - CONCLUSION: 1. No active disease. Mildly tortuous and atherosclerotic aorta. Blair Franklin MD Objective Remarks alert,NAD anicteric lungs clear regular rhythm abdomen -s fot good bowel sounds extremities- dressing in place, moves all extremities equally A/P Problem List: (1) Diabetic infection of left foot ICD Code: E11.69 Status: Acute (2) Gas gangrene of foot ICD Code: A48.0 Status: Acute (3) Necrotizing cellulitis ICD Code: L03.90 Status: Acute (4) Osteomyelitis ICD Code: M86.9 Status: Acute (5) DKA (diabetic ketoacidoses) ICD Code: E13.10 Status: Acute (6) Hypokalemia ICD Code: E87.6 Status: Acute (7) Hypertension ICD Code: I10 Status: Acute (8) Leukocytosis (leucocytosis) ICD Code: D72.829 Status: Acute (9) Sepsis ICD Code: A41.9 Status: Acute Assessment and Plan 71 years old female Necrotizing fasciitis Likely osteomyelitis fourth fifth left foot metatarsal Clindamycin, Unasyn and vancomycin Blood cultures 2/wound cultures 12/15 pending Podiatry/Infectious disease/Vascular surgery ff for BKA in am [place]/Morphine as needed for pain management. Patient has allergy to codeine/causes "swelling". Received morphine in ED without complication Hypertension As needed labetalol/hydralazine for elevated blood pressure Currently on DKA protocol with D5 normal saline at 250 cc an hour and this will be discontinued today EKG revealed normal sinus rhythm with normal OK/QRS and QT intervals. Occasional PVCs Resp: Nasal cannula to maintain saturations greater than or equal to 92%. Currently on 2 L Incentive spirometry while awake Chest x-ray 12/15 reveals tortuous aorta otherwise no other acute cardiopulmonary findings GI: Patient is currently on ADA diet Protonix for GI prophylaxis Colace/as needed Senokot for bowel regimen : Celeste will be placed for accurate I's and O's in a critically ill patient Endo: Diabetes mellitus type 2 -- uncontrolled a1C 10.5 Ketoacidosis- resolved Levemir 10 units in the morning and receiving 3 units R insulin. Sliding scale insulin/moderate Accu-Chek before meals/at bedtime and 300 Renal: Creatinine currently within normal limits Accurate I's and O's Monitor urine output Heme: Leukocytosis Monitor CBC daily. Follow trends ID: Necrotizing fasciitis Likely osteomyelitis fourth fifth left foot metatarsal Clindamycin, Unasyn and vancomycin day #2 Blood cultures 2/wound cultures 5/6 pending Source control with podiatry Infectious disease ff for BKA in am FEN: Hypokalemia Hypophosphatemia Hypo-magnesium Replace electrolytes as clinically indicated per electrolyte protocol 40 mEq KCl, 2 g mag sulfate 30 mmol sodium phosphate 1. Recheck today MSK: Postop day #1 I&D left foot with resection of necrotic tissue below the fascial plane/8 x 14 cm secondary to gas gangrene EBL -300. Postoperative management per podiatry PT evaluate and treat Access - Utilize peripheral IV. Central line if indicated Prophylaxis - GI - Protonix - DVT - SCDs/heparin to start 24 hours postop Critical Care: The total care time was 35 minutes. Time to perform other separately billable procedures was not included in the critical care time. Problem Qualifiers (1) Osteomyelitis: Qualified Code: M86.9 - Osteomyelitis, unspecified site, unspecified type (2) DKA (diabetic ketoacidoses): Qualified Code: E13.10 - Diabetic ketoacidosis without coma associated with other specified diabetes mellitus (3) Hypertension: Qualified Code: I10 - Essential hypertension (4) Leukocytosis (leucocytosis): Qualified Code: D72.829 - Leukocytosis, unspecified type (5) Sepsis: Qualified Code: A41.9 - Sepsis, due to unspecified organism Linda Anderson MD December 17, 2016 15:48
[2016-12-17] MEDS ORDERED: POTASSIUM CHLORIDE 10 MEQ CONTROLLED RELEASE TAB PO ONE ×2 (16:00→17:30)
--- NOTE | 2016-12-17 17:25 | HHI.IDPN ---
Subjective Subjective Remarks is a 70 y/o CF with PMHx of HTN, diabetes mellitus and history of rheumatic fever who was admitted on 12/15/2016. Approximately one month ago patient had an open sore to the medial aspect upper left foot. She has not had this treated. She has been feeling weak and is a very poor historian. She reports she lost her mother few months and has been melancholy since and this may be a reason why she ignored her health issues. She denies any suicidal ideation and reports good support system with friends. She does not have a designated health care surrogate. She reports she has peripheral neuropathy and experienced tingling and numbness. She thinks the area got progressively worse with increased redness and foul-smelling. She presented today to [facility] for evaluation and treatment. In the ED, MRI of the left foot revealed necrotizing fasciitis with gas/ cellulitis of likely osteomyelitis of the distal fourth and fifth metatarsals of the left foot. She received vancomycin, clindamycin and Unasyn. Wound culture and blood cultures were performed. Podiatry took patient to OR and she had debridement of the wound and intra op findings are suggestive of necrotizing fascitis and osteomyelitis. Patient is in the ICU at time of my evaluation and she is also being treated for DKA. She is not on pressors but is on an Insulin gtt and UO is good. She is awake and Ox3 non focal. She has no rash diarrhea or adverse events from the antibiotics and seems to be responding to current antibiotic regimen. ID consulted for sepsis, cellulitis of left foot and necrotizing fascitis. delayed entry patient seen at noon today. Overnight events reviewed. Tmax 101 F No rash No diarrhea Wound examined with . Several toes and plantar aspect of foot with bluish black discoloration. Tissues look unhealthy. Antibiotics Unasyn IV Vanco IV Clinda IV Lines Line sites with no e.o infection. Past Medical History reviewed Allergies: Coded Allergies: Codeine (Verified Allergy, Severe, 03/31/08) Objective . Vital Signs Date Time Temp Pulse Resp B/P Pulse Ox O2 Delivery O2 Flow Rate FiO2 12/17/16 16:00 99.6 92 16 167/80 98 12/17/16 12:00 98.7 88 16 168/74 98 12/17/16 11:12 97 12/17/16 08:00 98.1 86 17 169/82 97 12/17/16 04:00 98.2 84 17 129/70 96 12/17/16 00:00 101.0 91 17 170/79 97 12/16/16 20:00 99.9 91 17 158/72 97 12/16/16 20:00 97 Room Air 12/16/16 12/16/16 12/17/16 15:00 23:00 07:00 Intake Total 1800 ml 1096 ml 1140 ml Output Total 500 ml 600 ml 450 ml Balance 1300 ml 496 ml 690 ml Intake Oral 480 ml 240 ml 240 ml IV Total 1320 ml 856 ml 900 ml Output Urine Total 500 ml 600 ml 450 ml Stool Total 0 ml . Laboratory Tests Test 12/16/16 12/17/16 14:35 04:50 White Blood Count 18.8 TH/MM3 14.4 TH/MM3 Red Blood Count 4.08 MIL/MM3 3.84 MIL/MM3 Hemoglobin 11.2 GM/DL 10.4 GM/DL Hematocrit 34.2 % 31.8 % Mean Corpuscular Volume 83.8 FL 82.9 FL Mean Corpuscular Hemoglobin 27.4 PG 27.1 PG Mean Corpuscular Hemoglobin 32.7 % 32.7 % Concent Red Cell Distribution Width 13.8 % 13.9 % Platelet Count 309 TH/MM3 286 TH/MM3 Mean Platelet Volume 8.8 FL 8.3 FL Neutrophils (%) (Auto) 85.0 % 78.0 % Lymphocytes (%) (Auto) 7.1 % 12.4 % Monocytes (%) (Auto) 7.6 % 9.1 % Eosinophils (%) (Auto) 0.2 % 0.4 % Basophils (%) (Auto) 0.1 % 0.1 % Neutrophils # (Auto) 16.0 TH/MM3 11.3 TH/MM3 Lymphocytes # (Auto) 1.3 TH/MM3 1.8 TH/MM3 Monocytes # (Auto) 1.4 TH/MM3 1.3 TH/MM3 Eosinophils # (Auto) 0.0 TH/MM3 0.1 TH/MM3 Basophils # (Auto) 0.0 TH/MM3 0.0 TH/MM3 CBC Comment DIFF FINAL DIFF FINAL Differential Comment Laboratory Tests Test 12/15/16 12/16/16 12/16/16 12/17/16 18:45 00:15 14:35 04:50 Sodium Level 136 MEQ/L 140 MEQ/L 139 MEQ/L 139 MEQ/L Potassium Level 3.5 MEQ/L 3.8 MEQ/L 3.2 MEQ/L 3.3 MEQ/L Chloride Level 101 MEQ/L 106 MEQ/L 106 MEQ/L 106 MEQ/L Carbon Dioxide Level 22.6 MEQ/L 23.4 MEQ/L 23.6 MEQ/L 25.0 MEQ/L Anion Gap 12 MEQ/L 11 MEQ/L 9 MEQ/L 8 MEQ/L Blood Urea Nitrogen 8 MG/DL 7 MG/DL 5 MG/DL 4 MG/DL Creatinine 0.42 MG/DL 0.38 MG/DL 0.46 MG/DL 0.43 MG/DL Estimat Glomerular Filtration 150 ML/MIN 168 ML/MIN 135 ML/MIN 145 ML/MIN Rate Random Glucose 195 MG/DL 167 MG/DL 175 MG/DL 124 MG/DL Hemoglobin A1c 10.5 % Calcium Level 7.6 MG/DL 7.9 MG/DL 7.8 MG/DL 7.9 MG/DL Phosphorus Level 2.6 MG/DL 1.6 MG/DL 2.4 MG/DL 2.7 MG/DL Magnesium Level 1.9 MG/DL 1.8 MG/DL 2.2 MG/DL 2.0 MG/DL Lactic Acid Level 1.0 mmol/L Total Bilirubin 0.3 MG/DL Aspartate Amino Transf 7 U/L (AST/SGOT) Alanine Aminotransferase 9 U/L (ALT/SGPT) Alkaline Phosphatase 147 U/L Total Creatine Kinase 25 U/L Total Protein 5.7 GM/DL Albumin 1.8 GM/DL Microbiology Date/Time Procedure Status Source Growth 12/15/16 13:30 Gram Stain - Final Complete Wound Foot 12/15/16 13:30 Wound Culture - Final Complete Group B Beta Strep Mixed Anaerobes Gram Positive Cocci Gram Variable Tim 12/15/16 13:30 Fungal Smear Ordered Wound Foot Pending 12/15/16 13:30 Fungal Culture Ordered Wound Foot Pending 12/15/16 13:40 Aerobic Blood Culture - Preliminary Resulted Blood Peripheral NO GROWTH IN 2 DAYS 12/15/16 13:40 Anaerobic Blood Culture - Preliminary Resulted Blood Peripheral NO GROWTH IN 2 DAYS 12/15/16 13:40 Aerobic Blood Culture - Preliminary Resulted Blood Peripheral NO GROWTH IN 2 DAYS 12/15/16 13:40 Anaerobic Blood Culture - Preliminary Resulted Blood Peripheral NO GROWTH IN 2 DAYS 12/15/16 18:10 Gram Stain - Final Resulted Wound Foot 12/15/16 18:10 Wound Culture - Preliminary Resulted Group B Beta Strep 12/15/16 18:10 Fungal Smear - Final Resulted Wound Foot NO FUNGAL ELEMENTS SEEN. 12/15/16 18:10 Fungal Culture Resulted Wound Foot Pending Imaging Last Impressions Foot MRI 12/15/16 1325 Signed Impressions: Service Date/Time: Thursday, December 15, 2016 14:22 - CONCLUSION: 1. Soft tissue ulceration and numerous gas collections in the soft tissues of the forefoot and midfoot most characteristic of a necrotizing type cellulitis. 2. Osteomyelitis of the distal fourth and fifth metatarsals and possibly the proximal phalanx of the fifth toe. Remote fracture second toe. 3. No drainable fluid collections within the foot. Blair Franklin MD Foot X-Ray 12/15/16 0000 Signed Impressions: Service Date/Time: Thursday, December 15, 2016 12:25 - CONCLUSION: 1. Soft tissue swelling in extensive gas in the soft tissues consistent with the known infection. 2. No definite destructive change or osteomyelitis. 3. Osteoarthritic change. Yousuf Walton MD Chest X-Ray 12/15/16 0000 Signed Impressions: Service Date/Time: Thursday, December 15, 2016 17:01 - CONCLUSION: 1. No active disease. Mildly tortuous and atherosclerotic aorta. Blair Franklin MD Physical Exam GENERAL: This is a well-nourished, well-developed patient, in no apparent distress. SKIN: No rashes, ecchymoses or lesions. Cool and dry. HEAD: Atraumatic. Normocephalic. No temporal or scalp tenderness. EYES: Pupils equal round and reactive. Extraocular motions intact. No scleral icterus. No injection or drainage. ENT: Nose without bleeding, purulent drainage or septal hematoma. Throat without erythema, tonsillar hypertrophy or exudate. Uvula midline. Airway patent. NECK: Trachea midline. Supple, nontender, no meningeal signs. CARDIOVASCULAR: Regular rate and rhythm without murmurs, gallops, or rubs. RESPIRATORY: Clear to auscultation. Breath sounds equal bilaterally. No wheezes , rales, or rhonchi. GASTROINTESTINAL: Abdomen soft, non-tender, nondistended. No hepato-splenomegaly , or palpable masses. No guarding. MUSCULOSKELETAL: Left foot in post op dressing. NEUROLOGICAL: Awake and alert. Psych cooperative IV line sites with no e.o infection Assessment & Plan Remarks Sepsis present on admission Necrotizing fascitis of left foot Osteomyelitis of left foot. DM2 uncontrolled in DKA on presentation. Recs: Continue Unasyn IV (polymicrobial and anaerobic Nec fascitis) Continue Vanco IV (target 15-20 for osteomyelitis) Continue Clindamycin IV for now (toxin neutralization effect for Nec fascitis) Follow cultures Follow clinically. Case d.w and examined pt with him Unfortunately the foot does not appear salvageable at this point. The foot on plantar aspect as well as few toes appear bluish with poor circulation concerning for ongoing active infection and gangrenous process. Patient also had fevers overnight. Agree for Vascular consult and need for further surgery. d/w case picker: will likely not need antibiotics on discharge if undergoes BKA and no blood cultures positive. Will follow along to determine. Patient was very sad to hear this news as it [birth year] her [birth year] today. Asked RN to high school counselor her and visit with her frequently today. Monica Aleman MD December 17, 2016 17:25
[2016-12-17] MEDS: VANCOMYCIN INJ 1,350 MG in SODIUM CHLORID 0.9% 500 ML INJ 500 ML IV SCH (18:32)
[2016-12-17] MEDS: POTASSIUM CHLOR 10 MEQ PREMIX 100 ML IV SCH ×2 (23:21→23:22)
[2016-12-18] MEDS: AMPICILLIN-SULBACTAM INJ 3 GM in SODIUM CHLORIDE 0.9% INJ 100 ML IV SCH ×4 (03:13→21:45)
[2016-12-18] MEDS: CHLORHEXIDINE GLUCONATE 2 % 1 PACK (2 CLOTHS) TOP SCH (03:14)
[2016-12-18 04:00] VITALS: BP 161/74; PULSE 92; RESP 18; TEMP 96.9; O2SAT 96
[2016-12-18] MEDS: HEPARIN SODIUM - SQ 10,000 UNITS/ML VIAL SQ SCH ×2 (05:47→17:47)
[2016-12-18 06:03] LABS: BICARBONATE 26.7 MEQ/L (21.0-32.0); POTASSIUM 3.6 MEQ/L (3.5-5.1)
[2016-12-18] MEDS: INSULIN NovoLIN REGULAR SUPPLEMENTAL SCALE SQ SCH ×4 (06:17→21:00)
[2016-12-18 08:00] VITALS: BP 161/74; PULSE 93; RESP 17; TEMP 98.9; O2SAT 95
[2016-12-18] MEDS: VANCOMYCIN INJ 1,350 MG in SODIUM CHLORID 0.9% 500 ML INJ 500 ML IV SCH (08:41)
[2016-12-18] MEDS: INSULIN DETEMIR 100 UNITS/ML VIAL SQ SCH (08:41)
[2016-12-18] MEDS: DOCUSATE SODIUM 100 MG CAP PO SCH ×2 (08:42→21:45)
[2016-12-18] MEDS: SODIUM CHLORIDE 0.9% FLUSH 10 ML FLUSH IV FLUSH SCH ×2 (08:42→21:45)
[2016-12-18] MEDS: PANTOPRAZOLE SODIUM 40 MG VIAL IV SCH (08:42)
[2016-12-18] MEDS ORDERED: PHARMACY ORDERED LAB ONE (08:45)
[2016-12-18] MEDS: CLINDAMYCIN INJ 900 MG in SODIUM CHLORIDE 0.9% INJ 100 ML IV SCH ×2 (08:51→16:27)
[2016-12-18] MEDS ORDERED: PROPOFOL 200 MG/20 ML AMP IV ONE (09:06)
[2016-12-18] MEDS ORDERED: NEOSTIGMINE 3 MG/3 ML SYR IV ONE (09:07)
[2016-12-18] MEDS ORDERED: PHENYLEPH/NS 1000 MCG/10 ML SYR IV ONE (09:07)
[2016-12-18] MEDS ORDERED: ePHEDrine/NS 25 MG/5 ML SYR IV ONE (09:07)
[2016-12-18] MEDS: ENALAPRIL MALEATE 5 MG TAB PO SCH (09:24)
--- NOTE | 2016-12-18 09:59 | HHI.PR ---
Subjective Remarks no pain complains overnight, had a good night Objective Vitals Vital Signs Date Time Temp Pulse Resp B/P Pulse Ox O2 Delivery O2 Flow Rate FiO2 12/18/16 08:00 98.9 93 17 161/74 95 12/18/16 04:00 96.9 92 18 161/74 96 12/17/16 23:51 99.2 95 16 162/74 96 12/17/16 20:00 100.6 92 16 145/80 97 12/17/16 20:00 Room Air 12/17/16 16:00 99.6 92 16 167/80 98 12/17/16 12:00 98.7 88 16 168/74 98 12/17/16 11:12 97 I/O 12/17/16 12/17/16 12/17/16 12/18/16 12/18/16 12/18/16 07:00 15:00 23:00 07:00 15:00 23:00 Intake Total 1140 ml 960 ml 360 ml 1601 ml Output Total 450 ml 900 ml 1000 ml 1000 ml Balance 690 ml 60 ml -640 ml 601 ml Intake Oral 240 ml 960 ml 360 ml IV Total 900 ml 1601 ml Output Urine Total 450 ml 900 ml 1000 ml 1000 ml # Bowel Movements 0 Result Diagram: 12/17/16 0450 12/18/16 0513 Imaging Last Impressions Foot MRI 12/15/16 1325 Signed Impressions: Service Date/Time: Thursday, December 15, 2016 14:22 - CONCLUSION: 1. Soft tissue ulceration and numerous gas collections in the soft tissues of the forefoot and midfoot most characteristic of a necrotizing type cellulitis. 2. Osteomyelitis of the distal fourth and fifth metatarsals and possibly the proximal phalanx of the fifth toe. Remote fracture second toe. 3. No drainable fluid collections within the foot. Blair Franklin MD Foot X-Ray 12/15/16 0000 Signed Impressions: Service Date/Time: Thursday, December 15, 2016 12:25 - CONCLUSION: 1. Soft tissue swelling in extensive gas in the soft tissues consistent with the known infection. 2. No definite destructive change or osteomyelitis. 3. Osteoarthritic change. Yousuf Walton MD Chest X-Ray 12/15/16 0000 Signed Impressions: Service Date/Time: Thursday, December 15, 2016 17:01 - CONCLUSION: 1. No active disease. Mildly tortuous and atherosclerotic aorta. Blair Franklin MD Objective Remarks alert,NAD anicteric lungs clear regular rhythm abdomen -s fot good bowel sounds extremities- ischemic toes, dressing in place, moves all extremities equally A/P Problem List: (1) Diabetic infection of left foot ICD Code: E11.69 Status: Acute (2) Gas gangrene of foot ICD Code: A48.0 Status: Acute (3) Necrotizing cellulitis ICD Code: L03.90 Status: Acute (4) Osteomyelitis ICD Code: M86.9 Status: Acute (5) DKA (diabetic ketoacidoses) ICD Code: E13.10 Status: Acute (6) Hypokalemia ICD Code: E87.6 Status: Acute (7) Hypertension ICD Code: I10 Status: Acute (8) Leukocytosis (leucocytosis) ICD Code: D72.829 Status: Acute (9) Sepsis ICD Code: A41.9 Status: Acute Assessment and Plan 71 years old female Necrotizing fasciitis Likely osteomyelitis fourth fifth left foot metatarsal Clindamycin, Unasyn and vancomycin Blood cultures 2/wound cultures 12/15 pending Podiatry/Infectious disease/Vascular surgery ff for BKA today [place]/Morphine as needed for pain management. Patient has allergy to codeine/causes "swelling". Received morphine in ED without complication Hypertension As needed labetalol/hydralazine for elevated blood pressure Currently on DKA protocol with D5 normal saline at 250 cc an hour and this will be discontinued today EKG revealed normal sinus rhythm with normal DC/QRS and QT intervals. Occasional PVCs Resp: Nasal cannula to maintain saturations greater than or equal to 92%. Currently on 2 L Incentive spirometry while awake Chest x-ray 12/15 reveals tortuous aorta otherwise no other acute cardiopulmonary findings GI: on ADA diet Protonix for GI prophylaxis Colace/as needed Senokot for bowel regimen : Celeste will be placed for accurate I's and O Endo: Diabetes mellitus type 2 -- uncontrolled a1C 10.5 Ketoacidosis- resolved Levemir 10 units in the morning and receiving 3 units R insulin. Sliding scale insulin/moderate Accu-Chek before meals/at bedtime and 300 better readings- continue to adjust diabetes education done at bedside- needs OP ff up with PCP Renal: Creatinine currently within normal limits Accurate I's and O's Monitor urine output Heme: Leukocytosis Monitor CBC daily. Follow trends ID: Necrotizing fasciitis Likely osteomyelitis fourth fifth left foot metatarsal Clindamycin, Unasyn and vancomycin day #2 Blood cultures 2/wound cultures /6 pending Source control with podiatry Infectious disease ff for BKA today 12/18 FEN: Hypokalemia Hypophosphatemia Hypo-magnesium Replace electrolytes as clinically indicated per electrolyte protocol 40 mEq KCl, 2 g mag sulfate 30 mmol sodium phosphate 1. Recheck today MSK: Prophylaxis - GI - Protonix - DVT - SCDs/heparin to start 24 hours postop Problem Qualifiers (1) Osteomyelitis: Qualified Code: M86.9 - Osteomyelitis, unspecified site, unspecified type (2) DKA (diabetic ketoacidoses): Qualified Code: E13.10 - Diabetic ketoacidosis without coma associated with other specified diabetes mellitus (3) Hypertension: Qualified Code: I10 - Essential hypertension (4) Leukocytosis (leucocytosis): Qualified Code: D72.829 - Leukocytosis, unspecified type (5) Sepsis: Qualified Code: A41.9 - Sepsis, due to unspecified organism Linda Anderson MD December 18, 2016 09:59
[2016-12-18 12:00] VITALS: BP 155/74; PULSE 87; RESP 16; TEMP 98.6; O2SAT 96
[2016-12-18] MEDS ORDERED: APREPITANT 40 MG CAP ONE (12:59)
[2016-12-18] MEDS ORDERED: FAMOTIDINE 20 MG/2 ML VIAL ONE (12:59)
[2016-12-18] MEDS ORDERED: MIDAZOLAM HCL 2 MG/2 ML VIAL ONE (12:59)
[2016-12-18] MEDS ORDERED: SUGAMMADEX SODIUM 200 MG/2 ML VIAL IV PUSH ONE ×2 (13:51)
--- NOTE | 2016-12-18 13:58 | HHI.PR ---
Immediate Post Op Note Procedure Date: December 18, 2016 Pre Op Diagnosis: septic LEFT foot Post Op Diagnosis: septic LEFT foot Surgeon: Kamaljit Lin Freight Weigher(s): Tee Villanueva Procedure: L ankle disarticulation Findings: no undrained purulence at level of amputation Complications: none Specimen(s) removed: LEFT foot Estimated blood loss: 50 mL Anesthesia: General Drains: None Fluids: 400 mL IVF Patient to: PACU Patient Condition: Good Date/Time of Procedure: SEE SURGICAL CARE RECORD Kamaljit Lin MD December 18, 2016 13:58
[2016-12-18] MEDS ORDERED: fentaNYL CITRATE 250 MCG/5 ML AMP ONE (14:19)
[2016-12-18 16:00] VITALS: BP 171/84; PULSE 83; RESP 18; TEMP 97.7; O2SAT 94
[2016-12-18 17:55] VITALS: O2SAT 94
[2016-12-18 20:00] VITALS: BP 162/88; PULSE 87; RESP 16; TEMP 96.7; O2SAT 98
[2016-12-18] MEDS: VANCOMYCIN INJ 1,500 MG in SODIUM CHLORID 0.9% 500 ML INJ 500 ML IV SCH (21:45)
[2016-12-19] VITALS (10 sets, daily range): BP systolic 152–181; BP diastolic 73–105; PULSE 82–91; RESP 16–20; TEMP 96.4–99.4; O2SAT 92–98
[2016-12-19] MEDS: CLINDAMYCIN INJ 900 MG in SODIUM CHLORIDE 0.9% INJ 100 ML IV SCH ×3 (00:54→17:21)
[2016-12-19] MEDS: AMPICILLIN-SULBACTAM INJ 3 GM in SODIUM CHLORIDE 0.9% INJ 100 ML IV SCH ×4 (03:35→21:34)
[2016-12-19] MEDS: CHLORHEXIDINE GLUCONATE 2 % 1 PACK (2 CLOTHS) TOP SCH (04:00)
[2016-12-19] MEDS: HEPARIN SODIUM - SQ 10,000 UNITS/ML VIAL SQ SCH ×2 (05:41→16:23)
[2016-12-19] MEDS: INSULIN NovoLIN REGULAR SUPPLEMENTAL SCALE SQ SCH ×4 (07:00→21:42)
[2016-12-19] MEDS: PANTOPRAZOLE SODIUM 40 MG VIAL IV SCH (08:20)
[2016-12-19] MEDS: DOCUSATE SODIUM 100 MG CAP PO SCH ×2 (08:20→21:00)
[2016-12-19] MEDS: ENALAPRIL MALEATE 5 MG TAB PO SCH (08:20)
[2016-12-19] MEDS: SODIUM CHLORIDE 0.9% FLUSH 10 ML FLUSH IV FLUSH SCH ×2 (08:21→21:33)
[2016-12-19] MEDS: INSULIN DETEMIR 100 UNITS/ML VIAL SQ SCH (09:01)
[2016-12-19] MEDS: ENALAPRILAT 2.5 MG/2 ML VIAL IV PUSH PRN (09:02)
[2016-12-19] MEDS: VANCOMYCIN INJ 1,500 MG in SODIUM CHLORID 0.9% 500 ML INJ 500 ML IV SCH ×2 (10:32→21:35)
--- NOTE | 2016-12-19 13:10 | MP ---
cc: SAADIA LIN MD DATE OF SURGERY 12/18/2016 PREOPERATIVE DIAGNOSIS Septic left foot, diabetic infection POSTOPERATIVE DIAGNOSIS Septic left foot, diabetic infection PROCEDURE Left ankle disarticulation ATTENDING SURGEON Saadia Lin MD VETERINARY TECHNICIAN INSTRUCTOR SURGEON Tee Villanueva ANESTHESIA General INDICATIONS Mrs. Mcclendon is a 71 year-old lady with diabetes and hemoglobin A1c of 10 who presented over the weekend with gas gangrene of the left foot. She underwent attempted foot salvage, but this was globally unsuccessful and the patient has a necrotic foot and was taken to the operating room for urgent foot amputation. DESCRIPTION OF PROCEDURE Informed consent was obtained from the patient. She was taken to the operating room and placed supine on the operating room table. An appropriate time out was taken to ensure the patient's identify, the operative site and planned procedure. The administration of Unasyn was initiated prior to skin incision as part of her broad-spectrum antibiotics that will be continued postoperatively for ongoing therapy. Everyone in the room agreed with the time out and we proceeded. The left leg was prepped and draped and an incision was made below the medial and lateral malleoli, carried down through the subcutaneous tissue with electrocautery. The named vessels were clamped with a hemostat and the foot was amputated and passed off the table. A silk ligature was used to ligate the vessels and the wound was then irrigated and found to be hemostatic. Manual pressure was applied on the calf revealing no undrained purulence. The wound was further irrigated and wrapped with a Xeroform, Kerlix and Codey bandage. There were no complications and I was present and scrubbed and performed the entire procedure. MD EUGENIA Herrmann/SAGRARIO /2:06 PM /1:01 PM
--- NOTE | 2016-12-19 14:16 | PD.VS.PN ---
Subjective POD #: 1 Procedure(s): L ankle disarticulation Subjective/Hospital Course Pt reported she feels great Pt denies pain and is resting comfortably in bed (Saloni Peters) Objective Vitals/I&O Date Time Temp Pulse Resp B/P Pulse Ox O2 Delivery O2 Flow Rate FiO2 12/19/16 10:18 89 12/19/16 08:00 96.4 85 20 175/105 93 12/19/16 04:03 97.1 82 18 154/78 98 12/19/16 00:00 96.9 88 16 152/82 97 12/18/16 21:42 Nasal Cannula 2.00 12/18/16 20:00 96.7 87 16 162/88 98 12/18/16 17:55 94 21 12/18/16 16:00 97.7 83 18 171/84 94 12/18/16 15:15 98.8 82 20 160/80 97 Nasal Cannula 2 12/18/16 15:00 82 24 161/81 97 12/18/16 14:45 84 14 167/85 97 12/18/16 14:30 85 14 159/80 96 Nasal Cannula 2 12/18/16 14:15 98.7 94 10 176/85 96 Nasal Cannula 2 12/19/16 12/19/16 12/19/16 07:00 15:00 23:00 Intake Total 240 ml 863 ml Output Total 1500 ml Balance -1260 ml 863 ml Exam: GENERAL: A&OX#, NAD, GCS15 SKIN: Warm and dry/ L ankle disarticulation site without R/D/S/O. Changed dressing w/o difficulty, minimal sanguineous drainage noted CARDIOVASCULAR: +s1,S2,RRR w/o M/G/R RESPIRATORY: BS CTA GASTROINTESTINAL: Abdomen S/NT MUSCULOSKELETAL: No cyanosis, or edema. Laboratory Date/Time Procedure Status Source Growth 12/15/16 18:10 Gram Stain - Final Complete Wound Foot 12/15/16 18:10 Wound Culture - Final Complete Group B Beta Strep 12/15/16 18:10 Fungal Smear - Final Resulted Wound Foot NO FUNGAL ELEMENTS SEEN. 12/15/16 18:10 Fungal Culture Resulted Wound Foot Pending 12/15/16 13:40 Aerobic Blood Culture - Preliminary Resulted Blood Peripheral NO GROWTH IN 4 DAYS 5/6/17 13:40 Anaerobic Blood Culture - Preliminary Resulted Blood Peripheral NO GROWTH IN 4 DAYS 12/15/16 13:30 Fungal Smear Ordered Wound Foot Pending 12/15/16 13:30 Fungal Culture Ordered Wound Foot Pending (Saloni Peters) Assessment and Plan Plan Plan Pt scheduled tomorrow for L BKA completion NPO after midnight Keep dressing C/D Saloni LOPEZ [facility] [phone] (Saloni Peters) Plan Left leg still swollen and warm. Will evaluate in am. Plan for left BKA revision on 12/20 if improves. Patient understands risks and benefits of surgery. Has been marked and consented for surgery on 12/20. Julio Sheridan DO, FACS. (Julio Sheridan DO) Saloni Peters December 19, 2016 14:16 Julio Sheridan DO December 19, 2016 18:33
[2016-12-19 15:09] LABS: HEMATOCRIT 31.2 % (35.0-46.0); MEAN CELL VOLUME 82.5 FL (80.0-100.0); MEAN CORPUSCULAR HEMOGLOBIN 28.1 PG (27.0-34.0); MEAN CORPUSCULAR HGB CONC 34.1 % (32.0-36.0); PLATELET COUNT 327 TH/MM3 (150-450); RED BLOOD COUNT 3.79 MIL/MM3 (4.00-5.30); REVIEW FLAG FINAL; WHITE BLOOD COUNT 8.4 TH/MM3 (4.0-11.0)
[2016-12-19 15:30] LABS: BICARBONATE 30.4 MEQ/L (21.0-32.0); POTASSIUM 3.3 MEQ/L (3.5-5.1)
--- NOTE | 2016-12-19 16:04 | HHI.IDPN ---
Subjective Subjective Remarks is a 70 y/o CF with PMHx of HTN, diabetes mellitus and history of rheumatic fever who was admitted on 12/15/2016. Approximately one month ago patient had an open sore to the medial aspect upper left foot. She has not had this treated. She has been feeling weak and is a very poor historian. She reports she lost her mother few months and has been melancholy since and this may be a reason why she ignored her health issues. She denies any suicidal ideation and reports good support system with friends. She does not have a designated health care surrogate. She reports she has peripheral neuropathy and experienced tingling and numbness. She thinks the area got progressively worse with increased redness and foul-smelling. She presented today to [facility] for evaluation and treatment. In the ED, MRI of the left foot revealed necrotizing fasciitis with gas/ cellulitis of likely osteomyelitis of the distal fourth and fifth metatarsals of the left foot. She received vancomycin, clindamycin and Unasyn. Wound culture and blood cultures were performed. Podiatry took patient to OR and she had debridement of the wound and intra op findings are suggestive of necrotizing fascitis and osteomyelitis. Patient is in the ICU at time of my evaluation and she is also being treated for DKA. She is not on pressors but is on an Insulin gtt and UO is good. She is awake and Ox3 non focal. She has no rash diarrhea or adverse events from the antibiotics and seems to be responding to current antibiotic regimen. ID consulted for sepsis, cellulitis of left foot and necrotizing fascitis. delayed entry patient seen at noon today. Overnight events reviewed. s/p above ankle amputation. Plan for BKA tomorrow. No rash No diarrhea Antibiotics Unasyn IV Vanco IV Clinda IV Lines Line sites with no e.o infection. Past Medical History reviewed Allergies: Coded Allergies: Codeine (Verified Allergy, Severe, 03/31/08) Objective . Vital Signs Date Time Temp Pulse Resp B/P Pulse Ox O2 Delivery O2 Flow Rate FiO2 12/19/16 12:00 99.4 90 17 165/73 94 12/19/16 11:56 93 12/19/16 10:18 89 12/19/16 08:00 96.4 85 20 175/105 93 12/19/16 04:03 97.1 82 18 154/78 98 12/19/16 00:00 96.9 88 16 152/82 97 12/18/16 21:42 Nasal Cannula 2.00 12/18/16 20:00 96.7 87 16 162/88 98 12/18/16 17:55 94 21 12/18/16 12/18/16 12/19/16 15:00 23:00 07:00 Intake Total 500 ml 1183 ml 240 ml Output Total 900 ml 1800 ml 1500 ml Balance -400 ml -617 ml -1260 ml Intake Oral 0 ml 360 ml 240 ml IV Total 823 ml Other 500 ml Output Urine Total 850 ml 1800 ml 1500 ml Estimated Blood Loss 50 ml # Bowel Movements 0 . Laboratory Tests Test 12/19/16 14:48 White Blood Count 8.4 TH/MM3 Red Blood Count 3.79 MIL/MM3 Hemoglobin 10.6 GM/DL Hematocrit 31.2 % Mean Corpuscular Volume 82.5 FL Mean Corpuscular Hemoglobin 28.1 PG Mean Corpuscular Hemoglobin 34.1 % Concent Red Cell Distribution Width 14.0 % Platelet Count 327 TH/MM3 Mean Platelet Volume 8.3 FL Laboratory Tests Test 12/17/16 12/18/16 12/19/16 20:00 05:13 14:48 Potassium Level 3.1 MEQ/L 3.6 MEQ/L 3.3 MEQ/L Sodium Level 137 MEQ/L 137 MEQ/L Chloride Level 101 MEQ/L 99 MEQ/L Carbon Dioxide Level 26.7 MEQ/L 30.4 MEQ/L Anion Gap 9 MEQ/L 8 MEQ/L Blood Urea Nitrogen 4 MG/DL 4 MG/DL Creatinine 0.40 MG/DL 0.37 MG/DL Estimat Glomerular Filtration 158 ML/MIN 173 ML/MIN Rate Random Glucose 151 MG/DL 159 MG/DL Calcium Level 8.2 MG/DL 8.0 MG/DL Imaging Last Impressions Foot MRI 12/15/16 1325 Signed Impressions: Service Date/Time: Thursday, December 15, 2016 14:22 - CONCLUSION: 1. Soft tissue ulceration and numerous gas collections in the soft tissues of the forefoot and midfoot most characteristic of a necrotizing type cellulitis. 2. Osteomyelitis of the distal fourth and fifth metatarsals and possibly the proximal phalanx of the fifth toe. Remote fracture second toe. 3. No drainable fluid collections within the foot. Blair Franklin MD Foot X-Ray 12/15/16 0000 Signed Impressions: Service Date/Time: Thursday, December 15, 2016 12:25 - CONCLUSION: 1. Soft tissue swelling in extensive gas in the soft tissues consistent with the known infection. 2. No definite destructive change or osteomyelitis. 3. Osteoarthritic change. Yousuf Walton MD Chest X-Ray 12/15/16 0000 Signed Impressions: Service Date/Time: Thursday, December 15, 2016 17:01 - CONCLUSION: 1. No active disease. Mildly tortuous and atherosclerotic aorta. Blair Franklin MD Physical Exam GENERAL: This is a well-nourished, well-developed patient, in no apparent distress. SKIN: No rashes, ecchymoses or lesions. Cool and dry. HEAD: Atraumatic. Normocephalic. No temporal or scalp tenderness. EYES: Pupils equal round and reactive. Extraocular motions intact. No scleral icterus. No injection or drainage. ENT: Nose without bleeding, purulent drainage or septal hematoma. Throat without erythema, tonsillar hypertrophy or exudate. Uvula midline. Airway patent. NECK: Trachea midline. Supple, nontender, no meningeal signs. CARDIOVASCULAR: Regular rate and rhythm without murmurs, gallops, or rubs. RESPIRATORY: Clear to auscultation. Breath sounds equal bilaterally. No wheezes , rales, or rhonchi. GASTROINTESTINAL: Abdomen soft, non-tender, nondistended. No hepato-splenomegaly , or palpable masses. No guarding. MUSCULOSKELETAL: Left foot in post op dressing. NEUROLOGICAL: Awake and alert. Psych cooperative IV line sites with no e.o infection Assessment & Plan Remarks Sepsis present on admission Necrotizing fascitis of left foot Osteomyelitis of left foot. DM2 uncontrolled in DKA on presentation. Recs: Continue Unasyn IV (polymicrobial and anaerobic Nec fascitis) Continue Vanco IV (target 15-20 for osteomyelitis) Continue Clindamycin IV for now (toxin neutralization effect for Nec fascitis) Follow cultures Follow clinically. Will likely not need antibiotics on discharge if undergoes BKA and no blood cultures positive. Will follow along to determine. Monica Aleman MD December 19, 2016 16:04
[2016-12-19] MEDS ORDERED: POTASSIUM CHLORIDE 25 MEQ EFFERVESCENT TAB PO ONE (16:45)
--- NOTE | 2016-12-19 17:26 | HHI.PR ---
Subjective Remarks Follow up DKA, sepsis, necrotizing fascitis, osteomyelitis and left BKA on post op day #1. Patient seen and examined. Patient denies any new acute complaints. Somewhat emotional about BKA yesterday, preparing for additional operation tomorrow. Has been tolerating PO intake, denies any nausea, vomiting or diarrhea. Plan for surgery tomorrow with Dr. Sheridan. Objective Vitals Vital Signs Date Time Temp Pulse Resp B/P Pulse Ox O2 Delivery O2 Flow Rate FiO2 12/19/16 16:00 95 Room Air 12/19/16 12:00 99.4 90 17 165/73 94 12/19/16 11:56 93 12/19/16 10:18 89 12/19/16 08:00 96.4 85 20 175/105 93 12/19/16 04:03 97.1 82 18 154/78 98 12/19/16 00:00 96.9 88 16 152/82 97 12/18/16 21:42 Nasal Cannula 2.00 12/18/16 20:00 96.7 87 16 162/88 98 12/18/16 17:55 94 21 I/O 12/18/16 12/18/16 12/18/16 12/19/16 12/19/16 12/19/16 07:00 15:00 23:00 07:00 15:00 23:00 Intake Total 1601 ml 500 ml 1183 ml 240 ml 863 ml 785 ml Output Total 1000 ml 900 ml 1800 ml 1500 ml 2400 ml Balance 601 ml -400 ml -617 ml -1260 ml 863 ml -1615 ml Intake Oral 0 ml 360 ml 240 ml IV Total 1601 ml 823 ml 863 ml 785 ml Other 500 ml Output Urine Total 1000 ml 850 ml 1800 ml 1500 ml 2400 ml Estimated Blood Loss 50 ml # Bowel Movements 0 Result Diagram: 12/19/16 1448 12/19/16 1448 Imaging Last Impressions Foot MRI 12/15/16 1325 Signed Impressions: Service Date/Time: Thursday, December 15, 2016 14:22 - CONCLUSION: 1. Soft tissue ulceration and numerous gas collections in the soft tissues of the forefoot and midfoot most characteristic of a necrotizing type cellulitis. 2. Osteomyelitis of the distal fourth and fifth metatarsals and possibly the proximal phalanx of the fifth toe. Remote fracture second toe. 3. No drainable fluid collections within the foot. Blair Franklin MD Foot X-Ray 12/15/16 Signed Impressions: Service Date/Time: Thursday, December 15, 2016 12:25 - CONCLUSION: 1. Soft tissue swelling in extensive gas in the soft tissues consistent with the known infection. 2. No definite destructive change or osteomyelitis. 3. Osteoarthritic change. Yosuuf Walton MD Chest X-Ray 12/15/16 Signed Impressions: Service Date/Time: Thursday, December 15, 2016 17:01 - CONCLUSION: 1. No active disease. Mildly tortuous and atherosclerotic aorta. Blair Franklin MD Objective Remarks GENERAL: Well-nourished, well-developed patient in NAD. SKIN: Warm and dry. No rash. HEENT: Normocephalic. Atraumatic. Pupils equal and round. No scleral icterus. No injection or drainage. No nasal bleeding or discharge. Mucous membranes pink and moist. NECK: Supple. Trachea midline. CARDIOVASCULAR: Regular rate and rhythm. S1, S2 noted. No murmur appreciated. RESPIRATORY: No accessory muscle use. Clear to auscultation. Breath sounds equal bilaterally. GASTROINTESTINAL: Abdomen soft, non-tender, nondistended. Normoactive bowel sounds x4. MUSCULOSKELETAL: No obvious deformities. Extremities without clubbing, cyanosis , or edema. Left BKA with domenica wrap in place, clean/dry/intact. NEUROLOGICAL: Awake and alert. No obvious cranial nerve deficits. Motor grossly within normal limits. 5/5 muscle strength in bilateral upper and lower extremities. Normal speech. PSYCHIATRIC: Appropriate mood and affect; insight and judgment normal. Urinary Catheter: Yes A/P Problem List: (1) Diabetic infection of left foot ICD Code: E11.69 Status: Acute (2) Gas gangrene of foot ICD Code: A48.0 Status: Acute (3) Necrotizing cellulitis ICD Code: L03.90 Status: Acute (4) Osteomyelitis ICD Code: M86.9 Status: Acute (5) DKA (diabetic ketoacidoses) ICD Code: E13.10 Status: Acute (6) Hypokalemia ICD Code: E87.6 Status: Acute (7) Hypertension ICD Code: I10 Status: Acute (8) Leukocytosis (leucocytosis) ICD Code: D72.829 Status: Acute (9) Sepsis ICD Code: A41.9 Status: Acute Assessment and Plan Necrotizing fasciitis Likely osteomyelitis fourth fifth left foot metatarsal Clindamycin, Unasyn and vancomycin Blood cultures 2/wound cultures /6 growing group B beta strep. Podiatry/Infectious disease/Vascular surgery ff BKA yesterday 12/18. Plan for surgery tomorrow with Dr. Sheridan. [place]/Morphine as needed for pain management. Patient has allergy to codeine/causes "swelling". Received morphine in ED without complication Hypertension As needed labetalol/hydralazine for elevated blood pressure. EKG revealed normal sinus rhythm with normal MA/QRS and QT intervals. Occasional PVCs Diabetes mellitus type 2 -- uncontrolled a1C 10.5 Ketoacidosis- resolved Levemir 10 units in the morning and receiving 3 units R insulin. Sliding scale insulin/moderate Accu-Chek before meals/at bedtime and 300 better readings - continue to adjust diabetes education done at bedside- needs OP ff up with PCP Continue ADA diet. Leukocytosis, resolved. Monitor CBC daily. Follow trends Hypokalemia: 50 meq KCL eff x 1 now. Hypophosphatemia, resolved. Hypo-magnesium, resolved. GI prophylaxis: Protonix. Colace/PRN Senokot for bowel regimen DVT prophylaxis: SCDs/heparin to start 24 hours postop Problem Qualifiers (1) Osteomyelitis: Qualified Code: M86.9 - Osteomyelitis, unspecified site, unspecified type (2) DKA (diabetic ketoacidoses): Qualified Code: E13.10 - Diabetic ketoacidosis without coma associated with other specified diabetes mellitus (3) Hypertension: Qualified Code: I10 - Essential hypertension (4) Leukocytosis (leucocytosis): Qualified Code: D72.829 - Leukocytosis, unspecified type (5) Sepsis: Qualified Code: A41.9 - Sepsis, due to unspecified organism Kristy Black December 19, 2016 17:26
[2016-12-20] VITALS (9 sets, daily range): BP systolic 144–187; BP diastolic 79–95; PULSE 80–93; RESP 17–20; TEMP 97.4–98.9; O2SAT 92–96
[2016-12-20] MEDS: CLINDAMYCIN INJ 900 MG in SODIUM CHLORIDE 0.9% INJ 100 ML IV SCH ×2 (00:40→08:34)
[2016-12-20] MEDS: AMPICILLIN-SULBACTAM INJ 3 GM in SODIUM CHLORIDE 0.9% INJ 100 ML IV SCH ×4 (03:27→20:44)
[2016-12-20] MEDS: CHLORHEXIDINE GLUCONATE 2 % 1 PACK (2 CLOTHS) TOP SCH (04:00)
[2016-12-20] MEDS: HEPARIN SODIUM - SQ 10,000 UNITS/ML VIAL SQ SCH ×2 (04:13→18:30)
[2016-12-20 04:48] LABS: BICARBONATE 29.4 MEQ/L (21.0-32.0); POTASSIUM 3.5 MEQ/L (3.5-5.1)
[2016-12-20] MEDS: INSULIN NovoLIN REGULAR SUPPLEMENTAL SCALE SQ SCH ×4 (06:11→20:48)
[2016-12-20] MEDS: DEXT 5%-NACL 0.9% 1000 ML INJ 1,000 ML IV SCH (06:11)
[2016-12-20] MEDS: ENALAPRIL MALEATE 5 MG TAB PO SCH (08:33)
[2016-12-20] MEDS: PANTOPRAZOLE SODIUM 40 MG VIAL IV SCH (08:34)
[2016-12-20] MEDS: SODIUM CHLORIDE 0.9% FLUSH 10 ML FLUSH IV FLUSH SCH ×2 (08:34→20:44)
[2016-12-20] MEDS: DOCUSATE SODIUM 100 MG CAP PO SCH ×2 (08:38→20:44)
[2016-12-20] MEDS ORDERED: PHARMACY ORDERED LAB ONE (08:45)
[2016-12-20] MEDS ORDERED: GELFOAM SIZE 100 ONE (12:07)
[2016-12-20] MEDS ORDERED: LIDOCAINE HCL 1% 50 ML VIAL ONE (12:07)
[2016-12-20] MEDS ORDERED: THROMBIN (TOPICAL) 5,000 UNIT VIAL ONE (12:07)
[2016-12-20] MEDS ORDERED: GENTAMICIN SULFATE 80 MG/2 ML VIAL ONE (12:07)
[2016-12-20] MEDS ORDERED: KETAMINE HCL 500 MG/5 ML VIAL ONE (12:24)
[2016-12-20] MEDS ORDERED: MIDAZOLAM HCL 2 MG/2 ML VIAL ONE (12:24)
[2016-12-20] MEDS ORDERED: fentaNYL CITRATE 250 MCG/5 ML AMP ONE (12:24)
[2016-12-20] MEDS ORDERED: DICLOFENAC SODIUM 37.5 MG/ML VIAL IV PUSH ONE (12:24)
[2016-12-20] MEDS ORDERED: APREPITANT 40 MG CAP ONE (12:25)
[2016-12-20] MEDS ORDERED: ONDANSETRON HCL 4 MG/2 ML VIAL ONE (12:25)
[2016-12-20] MEDS ORDERED: FAMOTIDINE 20 MG/2 ML VIAL ONE (12:25)
[2016-12-20] MEDS ORDERED: BUPIVACAINE/EPINEPHRINE 0.5% 50 ML VIAL ONE (12:46)
[2016-12-20] MEDS ORDERED: VANCOMYCIN INJ 1,250 MG in SODIUM CHLOR 0.9% 250 ML INJ 250 ML IV SCH ×2 (13:00→14:00)
--- NOTE | 2016-12-20 14:37 | HHI.PR ---
Addendum to Inpatient Note Addendum Reason: Additional Documentation Additional Information DC Clinda IV DC Vanco IV Continue Unasyn IV Blood cultures negative. On discharge no antibiotics needed if : 1. Stump has no evidence of infection. 2. Blood cultures negative 3. vitals stable and clinically improving. Will sign off please call back if any change in clinical condition or questions. covering for me this weekend. Monica Aleman MD December 20, 2016 14:37
[2016-12-20] MEDS ORDERED: *PROMETHAZINE 25 MG/ML VIAL PERIprocedural use ONLY ONE (14:54)
[2016-12-20] MEDS ORDERED: *morphine SULFATE 8 MG/ML PERIprocedure ONLY ONE ×3 (14:58→15:11)
[2016-12-20] MEDS: ENALAPRILAT 2.5 MG/2 ML VIAL IV PUSH PRN (15:30)
[2016-12-20] MEDS: MORPHINE SULFATE 4 MG/ML INJ IV PRN ×3 (16:42→23:06)
--- NOTE | 2016-12-20 17:15 | HHI.PR ---
Immediate Post Op Note Procedure Date: December 20, 2016 Pre Op Diagnosis: (1) Diabetic infection of left foot Post Op Diagnosis: (1) Diabetic infection of left foot Surgeon: Julio Sheridan [employer] Worker(s): see op report Procedure: Left BKA Findings: Clean stump Additional Information: NA Complications: none Specimen(s) removed: left leg Estimated blood loss: 100 cc Anesthesia: General Drains: None Fluids: 800cc IVF Tourniquet time (min at mmHg) 23 minutes Patient to: PACU Patient Condition: Good Implant/Devices: Other Date/Time of Procedure: Other Julio Sheridan DO December 20, 2016 17:15
--- NOTE | 2016-12-20 17:18 | PD.VS.PN ---
Subjective POD #: 0 Procedure(s): L completion BKA Subjective/Hospital Course Patient complains of pain left BKA stump. Objective Vitals/I&O Date Time Temp Pulse Resp B/P Pulse Ox O2 Delivery O2 Flow Rate FiO2 12/20/16 17:01 165/83 12/20/16 16:00 97.9 88 18 181/80 92 12/20/16 12:00 97.4 90 17 176/84 92 12/20/16 09:50 94 21 12/20/16 08:00 97.7 84 19 151/80 94 12/20/16 04:00 97.8 80 20 153/79 95 12/20/16 00:00 98.9 86 20 144/80 96 12/19/16 21:25 91 12/19/16 21:25 Nasal Cannula 2.00 12/19/16 20:00 99.0 90 20 157/77 94 12/20/16 12/20/16 12/20/16 07:00 15:00 23:00 Intake Total 811 ml 1231 ml 50 ml Output Total 550 ml 1400 ml 250 ml Balance 261 ml -169 ml -200 ml Exam: left leg dressing clean and dry. Laboratory Laboratory Tests Test 12/20/16 12/20/16 03:54 08:45 Sodium Level 138 Potassium Level 3.5 Chloride Level 100 Carbon Dioxide Level 29.4 Anion Gap 9 Blood Urea Nitrogen 5 Creatinine 0.35 Estimat Glomerular Filtration 184 Rate Random Glucose 168 Calcium Level 7.8 Vancomycin Level Trough 20.3 Date/Time Procedure Status Source Growth 12/15/16 18:10 Gram Stain - Final Complete Wound Foot 12/15/16 18:10 Wound Culture - Final Complete Group B Beta Strep 12/15/16 18:10 Fungal Smear - Final Resulted Wound Foot NO FUNGAL ELEMENTS SEEN. 12/15/16 18:10 Fungal Culture Resulted Wound Foot Pending Assessment and Plan Plan Status post left BKA. Plan for rehabilitation early next week. Remove dressing next saturday. Julio Sheridan DO, FACS. Julio Sheridan DO December 20, 2016 17:18
--- NOTE | 2016-12-20 22:58 | HHI.PR ---
Subjective Remarks f/u L foot OM/nec fas pain controlled, afebrile, for surgery today, BGs controlled in the 150s, BP stable, no cp, discussed with Dr. Sheridan Objective Vitals Vital Signs Date Time Temp Pulse Resp B/P Pulse Ox O2 Delivery O2 Flow Rate FiO2 12/20/16 20:00 98.8 93 19 187/95 96 12/20/16 17:01 165/83 12/20/16 16:00 97.9 88 18 181/80 92 12/20/16 15:40 98.6 89 16 166/80 96 Nasal Cannula 3 12/20/16 15:30 84 16 166/78 96 Nasal Cannula 3 12/20/16 15:15 84 15 168/82 97 Nasal Cannula 3 12/20/16 15:00 89 15 173/84 97 Nasal Cannula 3 12/20/16 14:49 98.4 89 15 178/88 97 Nasal Cannula 3 12/20/16 12:00 97.4 90 17 176/84 92 12/20/16 09:50 94 21 12/20/16 08:00 97.7 84 19 151/80 94 12/20/16 04:00 97.8 80 20 153/79 95 12/20/16 00:00 98.9 86 20 144/80 96 I/O 12/19/16 12/19/16 12/19/16 12/20/16 12/20/16 12/20/16 07:00 15:00 23:00 07:00 15:00 23:00 Intake Total 240 ml 1223 ml 1245 ml 811 ml 1231 ml 50 ml Output Total 1500 ml 2950 ml 550 ml 1400 ml 250 ml Balance -1260 ml 1223 ml -1705 ml 261 ml -169 ml -200 ml Intake Oral 240 ml 360 ml 460 ml 0 ml 0 ml IV Total 863 ml 785 ml 811 ml 231 ml 50 ml Other 1000 ml Output Urine Total 1500 ml 2950 ml 550 ml 1300 ml 250 ml Estimated Blood Loss 100 ml # Bowel Movements 0 0 0 0 Result Diagram: 12/19/16 1448 12/20/16 0354 Objective Remarks GENERAL: Well-nourished, well-developed patient in NAD. SKIN: Warm and dry. No rash. HEENT: Normocephalic. Atraumatic. Pupils equal and round. No scleral icterus. No injection or drainage. No nasal bleeding or discharge. Mucous membranes pink and moist. NECK: Supple. Trachea midline. CARDIOVASCULAR: Regular rate and rhythm. S1, S2 noted. No murmur appreciated. RESPIRATORY: No accessory muscle use. Clear to auscultation. Breath sounds equal bilaterally. GASTROINTESTINAL: Abdomen soft, non-tender, nondistended. Normoactive bowel sounds x4. MUSCULOSKELETAL: No obvious deformities. Extremities without clubbing, cyanosis , or edema. Left BKA with domenica wrap in place, clean/dry/intact. NEUROLOGICAL: Awake and alert. No obvious cranial nerve deficits. Motor grossly within normal limits. 5/5 muscle strength in bilateral upper and lower extremities. Normal speech. PSYCHIATRIC: Appropriate mood and affect; insight and judgment normal. A/P Problem List: (1) Diabetic infection of left foot ICD Code: E11.69 Status: Acute (2) Gas gangrene of foot ICD Code: A48.0 Status: Acute (3) Necrotizing cellulitis ICD Code: L03.90 Status: Acute (4) Osteomyelitis ICD Code: M86.9 Status: Acute (5) DKA (diabetic ketoacidoses) ICD Code: E13.10 Status: Acute (6) Hypokalemia ICD Code: E87.6 Status: Acute (7) Hypertension ICD Code: I10 Status: Acute (8) Leukocytosis (leucocytosis) ICD Code: D72.829 Status: Acute (9) Sepsis ICD Code: A41.9 Status: Acute Assessment and Plan Necrotizing fasciitis Likely osteomyelitis fourth fifth left foot metatarsal Clindamycin, Unasyn and vancomycin Blood cultures 2/wound cultures /6 growing group B beta strep. Podiatry/Infectious disease/Vascular surgery ff BKA 12/18. Plan for revision today with Dr. Sheridan, discussed with Dr. Sheridan and ID today, patient will not need ABx after BKA. [place]/Morphine as needed for pain management. Patient has allergy to codeine/causes "swelling". Received morphine in ED without complication Hypertension As needed labetalol/hydralazine for elevated blood pressure. EKG revealed normal sinus rhythm with normal LA/QRS and QT intervals. Occasional PVCs Diabetes mellitus type 2 -- uncontrolled a1C 10.5 Ketoacidosis- resolved Levemir 10 units in the morning and receiving 3 units R insulin. Sliding scale insulin/moderate Accu-Chek before meals/at bedtime and 300 better readings - continue to adjust as needed. diabetes education done at bedside- needs OP ff up with PCP, Hgba1c>10 Continue ADA diet. Leukocytosis, resolved. Monitor CBC daily. Follow trends Hypokalemia: 50 meq KCL eff x 1 now. Hypophosphatemia, resolved. Hypo-magnesium, resolved. GI prophylaxis: Protonix. Colace/PRN Senokot for bowel regimen DVT prophylaxis: SCDs/heparin to start 24 hours postop Discharge Planning d/c once cleared by Vasc, won't need abx on d/c Problem Qualifiers (1) Osteomyelitis: Qualified Code: M86.9 - Osteomyelitis, unspecified site, unspecified type (2) DKA (diabetic ketoacidoses): Qualified Code: E13.10 - Diabetic ketoacidosis without coma associated with other specified diabetes mellitus (3) Hypertension: Qualified Code: I10 - Essential hypertension (4) Leukocytosis (leucocytosis): Qualified Code: D72.829 - Leukocytosis, unspecified type (5) Sepsis: Qualified Code: A41.9 - Sepsis, due to unspecified organism Zuleyka Ferris MD December 20, 2016 22:58
[2016-12-20] MEDS: ONDANSETRON HCL 4 MG/2 ML VIAL IV PRN (22:59)
[2016-12-21] VITALS (7 sets, daily range): BP systolic 143–183; BP diastolic 63–87; PULSE 92–99; RESP 15–19; TEMP 96.5–100; O2SAT 93–98
[2016-12-21] MEDS: AMPICILLIN-SULBACTAM INJ 3 GM in SODIUM CHLORIDE 0.9% INJ 100 ML IV SCH ×4 (01:56→20:31)
[2016-12-21] MEDS: CHLORHEXIDINE GLUCONATE 2 % 1 PACK (2 CLOTHS) TOP SCH (01:57)
[2016-12-21] MEDS: DEXT 5%-NACL 0.9% 1000 ML INJ 1,000 ML IV SCH (01:57)
[2016-12-21] MEDS: HEPARIN SODIUM - SQ 10,000 UNITS/ML VIAL SQ SCH ×2 (06:07→16:57)
[2016-12-21] MEDS: ENALAPRILAT 2.5 MG/2 ML VIAL IV PUSH PRN (06:07)
[2016-12-21] MEDS: INSULIN NovoLIN REGULAR SUPPLEMENTAL SCALE SQ SCH ×4 (07:03→20:35)
[2016-12-21] MEDS: ENALAPRIL MALEATE 5 MG TAB PO SCH (08:06)
[2016-12-21] MEDS: SODIUM CHLORIDE 0.9% FLUSH 10 ML FLUSH IV FLUSH SCH ×2 (08:06→20:37)
[2016-12-21] MEDS: PANTOPRAZOLE SODIUM 40 MG VIAL IV SCH (08:06)
[2016-12-21] MEDS: DOCUSATE SODIUM 100 MG CAP PO SCH ×2 (08:06→20:31)
[2016-12-21] MEDS: ONDANSETRON HCL 4 MG/2 ML VIAL IV PRN ×2 (10:32→22:59)
--- NOTE | 2016-12-21 10:53 | PD.VS.PN ---
Subjective POD #: 1 Procedure(s): L completion BKA Subjective/Hospital Course Pt in bed this am c/o nausea and vomiting last night Pt c/o nausea at present time Nurse reported pt was able to take PO medications this am L BKA with dressing intact C/D with knee Immobilizer intact (Saloni Peters) Objective Vitals/I&O Date Time Temp Pulse Resp B/P Pulse Ox O2 Delivery O2 Flow Rate FiO2 12/21/16 08:00 99.0 99 16 176/87 95 12/21/16 04:00 98.7 96 19 183/82 98 12/21/16 00:00 96.5 92 19 167/83 98 12/20/16 23:00 84 12/20/16 21:29 21 12/20/16 20:00 98.8 93 19 187/95 96 12/20/16 19:00 98 Nasal Cannula 2.00 12/20/16 17:01 165/83 12/20/16 16:00 97.9 88 18 181/80 92 12/20/16 15:40 98.6 89 16 166/80 96 Nasal Cannula 3 12/20/16 15:30 84 16 166/78 96 Nasal Cannula 3 12/20/16 15:15 84 15 168/82 97 Nasal Cannula 3 12/20/16 15:00 89 15 173/84 97 Nasal Cannula 3 12/20/16 14:49 98.4 89 15 178/88 97 Nasal Cannula 3 12/20/16 12:00 97.4 90 17 176/84 92 12/21/16 12/21/16 12/21/16 06:59 14:59 22:59 Intake Total 240 ml Output Total 650 ml Balance -410 ml Exam: GENERAL: Alert and oriented in NAD SKIN: Warm and dry. L BKA with dressing intact C/D MUSCULOSKELETAL: No cyanosis, or edema. Codey wrap to LLE intact C/D (Saloni Peters) Assessment and Plan Plan Plan Status post left BKA. Continue pain management Plan for rehabilitation early next week. Remove dressing next saturday. Saloni LOPEZ [facility] [phone] (Saloni Peters) Plan I agree with above A/P. Julio Sheridan DO, FACS (Julio Sheridan DO) Saloni Peters December 21, 2016 10:53 Julio Sheridan DO December 21, 2016 10:54
[2016-12-21] MEDS ORDERED: ACETAMINOPHEN 325 MG TAB PO PRN (11:45)
[2016-12-21] MEDS: HYDROmorphone HCL PF 1 MG/ML VIAL IV PRN ×2 (12:18→22:59)
[2016-12-21] MEDS ORDERED: PHARMACY ORDERED LAB ONE (12:45)
--- NOTE | 2016-12-21 20:36 | MP ---
cc: ABAD MOLINA DO DATE OF SURGERY 12/20/16 PREOPERATIVE DIAGNOSIS History of gangrenous ischemic foot with gas gangrene left lower extremity. POSTOPERATIVE DIAGNOSIS 1. History of gangrenous ischemic foot with gas gangrene left lower extremity. 2. History of ankle disarticulation SURGEON Dasia Molina DO PROCEDURE Left completion BKA IV FLUIDS 800 mL. ANESTHESIA General endotracheal FLUIDS 800 mL crystalloid URINE OUTPUT Not calculated. COMPLICATIONS None DISPOSITION To PACU PROCEDURE IN DETAIL The patient's left leg was prepped and draped in sterile fashion. We did have the tourniquet up for 23 minutes to the left thigh. It should be noted, we did Esmarch the bandage before applying the tourniquet. We did give the patient perioperative IV antibiotics. I used a scalpel electrocautery to make an incision one handbreadth below the tibial tuberosity anteriorly and then another handbreadth below that incision more distally to the posterior flap. We connected the two with scalpel and electrocautery. I used a hemostat to control bleeding from the saphenous vein all the way through all the tibial vessels and divided them with 2-0 suture ligatures and then 0 ligatures as needed. I used electrocautery to assist with hemostasis. I used a T elevator to remove any tissue off of the tibia and fibula and then I used an oscillating saw to cut through the tibia and fibula. It should be noted that afterwards I used a rasp in order to smooth the edges and took care of any bleeding with 2-0 suture ligatures. It should be noted, there was no purulence noted in the area. We did irrigate with approximately a liter of normal saline with gentamicin. After performing the irrigation, it should be noted that we had to modify and cut the tibia and fibula up higher as the patient had copious gastrocs and soleus muscles. Based on the size of her leg, we had to use multiple interrupted 2-0 sutures to approximate the fascia and 3-0 deep dermal sutures. It should be noted that we used bennie for the skin and used a Xeroform, 4x4s and Ioban dressing with 4x4s, Kerlix and an Codey bandage with a knee immobilizer after the procedure. The patient tolerated procedure well. DO ARNULFO [place]am[place] /2:37 PM /8:17 PM
[2016-12-22] VITALS (7 sets, daily range): BP systolic 127–160; BP diastolic 64–72; PULSE 76–100; RESP 17–18; TEMP 97.3–100.1; O2SAT 92–96
[2016-12-22] MEDS: AMPICILLIN-SULBACTAM INJ 3 GM in SODIUM CHLORIDE 0.9% INJ 100 ML IV SCH ×4 (02:07→21:00)
[2016-12-22] MEDS: CHLORHEXIDINE GLUCONATE 2 % 1 PACK (2 CLOTHS) TOP SCH (03:38)
[2016-12-22] MEDS: HEPARIN SODIUM - SQ 10,000 UNITS/ML VIAL SQ SCH ×2 (05:36→16:14)
[2016-12-22] MEDS: INSULIN NovoLIN REGULAR SUPPLEMENTAL SCALE SQ SCH ×4 (05:42→23:50)
[2016-12-22 07:19] LABS: AUTOMATED NEUTROPHIL # 11.1 TH/MM3 (1.8-7.7); BASOPHIL % 0.2 % (0.0-2.0); EOSINOPHIL # 0.1 TH/MM3 (0-0.4); EOSINOPHIL % 0.4 % (0.0-4.0); HEMATOCRIT 27.3 % (35.0-46.0); LYMPH % 11.1 % (9.0-44.0); LYMPHOCYTE # 1.6 TH/MM3 (1.0-4.8); MEAN CELL VOLUME 83.1 FL (80.0-100.0); MEAN CORPUSCULAR HEMOGLOBIN 27.5 PG (27.0-34.0); MEAN CORPUSCULAR HGB CONC 33.1 % (32.0-36.0); MONO % 11.2 % (0.0-8.0); NEUT % 77.1 % (16.0-70.0); PLATELET COUNT 314 TH/MM3 (150-450); RED BLOOD COUNT 3.29 MIL/MM3 (4.00-5.30); RED CELL DISTRIBUTION WIDTH 13.7 % (11.6-17.2); WHITE BLOOD COUNT 14.5 TH/MM3 (4.0-11.0)
[2016-12-22 07:22] LABS: HEMO FLAGS AUTO DIFF
[2016-12-22 07:26] LABS: BICARBONATE 31.8 MEQ/L (21.0-32.0); POTASSIUM 3.3 MEQ/L (3.5-5.1)
[2016-12-22] MEDS: PANTOPRAZOLE SOD 40 MG DELAYED RELEASE TAB PO SCH (08:24)
[2016-12-22] MEDS: DOCUSATE SODIUM 100 MG CAP PO SCH ×2 (08:24→21:02)
[2016-12-22] MEDS: ENALAPRIL MALEATE 5 MG TAB PO SCH (08:24)
[2016-12-22] MEDS: SENNOSIDES 8.6 MG TAB PO PRN (08:27)
[2016-12-22] MEDS: HYDROmorphone HCL PF 1 MG/ML VIAL IV PRN ×2 (08:29→21:01)
[2016-12-22] MEDS: ONDANSETRON HCL 4 MG/2 ML VIAL IV PRN ×2 (08:37→21:00)
[2016-12-22] MEDS: INSULIN DETEMIR 100 UNITS/ML VIAL SQ SCH (08:39)
[2016-12-22] MEDS: SODIUM CHLORIDE 0.9% FLUSH 10 ML FLUSH IV FLUSH SCH ×2 (08:40→21:02)
[2016-12-22 08:55] LABS: SCAN/DIFF AUTO DIFF CONFIRMED
[2016-12-22] MEDS ORDERED: POTASSIUM CHLORIDE 10 MEQ CONTROLLED RELEASE TAB PO ONE ×2 (13:30→13:45)
--- NOTE | 2016-12-22 13:34 | HHI.PR ---
Subjective Remarks Late entry as patient was seen 12/21/16 She complained of nausea secondary to morphine and decreased by mouth intake Objective Vitals Vital Signs Date Time Temp Pulse Resp B/P Pulse Ox O2 Delivery O2 Flow Rate FiO2 12/22/16 12:00 97.3 90 17 160/72 93 12/22/16 08:42 Room Air 12/22/16 08:00 97.8 92 17 141/65 92 12/22/16 04:00 98.2 76 17 127/68 96 12/22/16 00:00 97.6 82 17 131/64 96 12/21/16 20:00 98.8 97 17 143/67 93 12/21/16 16:00 100.0 93 16 155/70 93 I/O 12/21/16 12/21/16 12/21/16 12/22/16 12/22/16 12/22/16 07:00 15:00 23:00 07:00 15:00 23:00 Intake Total 240 ml 640 ml 240 ml 240 ml Output Total 650 ml 500 ml 600 ml 300 ml Balance -410 ml 140 ml -360 ml -60 ml Intake Oral 240 ml 240 ml 240 ml 240 ml IV Total 400 ml Output Urine Total 650 ml 500 ml 600 ml 300 ml # Bowel Movements 0 Result Diagram: 12/22/16 0510 12/22/16 0510 Imaging Last Impressions Foot MRI 12/15/16 1325 Signed Impressions: Service Date/Time: Thursday, December 15, 2016 14:22 - CONCLUSION: 1. Soft tissue ulceration and numerous gas collections in the soft tissues of the forefoot and midfoot most characteristic of a necrotizing type cellulitis. 2. Osteomyelitis of the distal fourth and fifth metatarsals and possibly the proximal phalanx of the fifth toe. Remote fracture second toe. 3. No drainable fluid collections within the foot. Blair Franklin MD Foot X-Ray 12/15/16 0000 Signed Impressions: Service Date/Time: Thursday, December 15, 2016 12:25 - CONCLUSION: 1. Soft tissue swelling in extensive gas in the soft tissues consistent with the known infection. 2. No definite destructive change or osteomyelitis. 3. Osteoarthritic change. Yousuf Walton MD Chest X-Ray 12/15/16 0000 Signed Impressions: Service Date/Time: Thursday, December 15, 2016 17:01 - CONCLUSION: 1. No active disease. Mildly tortuous and atherosclerotic aorta. Blair Franklin MD Objective Remarks GENERAL: NAD SKIN: Warm and dry. HEAD: Normocephalic. EYES: No scleral icterus. No injection or drainage. NECK: Supple, trachea midline. No JVD or lymphadenopathy. CARDIOVASCULAR: Regular rate and rhythm without murmurs, gallops, or rubs. RESPIRATORY: Breath sounds equal bilaterally. No accessory muscle use. GASTROINTESTINAL: Abdomen soft, non-tender, nondistended. MUSCULOSKELETAL: No cyanosis, or edema. Left BKA BACK: Nontender without obvious deformity. No CVA tenderness. A/P Problem List: (1) Diabetic infection of left foot ICD Code: E11.69 Status: Acute (2) Gas gangrene of foot ICD Code: A48.0 Status: Acute (3) Necrotizing cellulitis ICD Code: L03.90 Status: Acute (4) Osteomyelitis ICD Code: M86.9 Status: Acute (5) DKA (diabetic ketoacidoses) ICD Code: E13.10 Status: Acute (6) Hypokalemia ICD Code: E87.6 Status: Acute (7) Hypertension ICD Code: I10 Status: Acute (8) Leukocytosis (leucocytosis) ICD Code: D72.829 Status: Acute (9) Sepsis ICD Code: A41.9 Status: Acute Assessment and Plan 71-year-old female with Necrotizing fasciitis Likely osteomyelitis fourth fifth left foot metatarsal Clindamycin, Unasyn and vancomycin Blood cultures 2/wound cultures / growing group B beta strep. Podiatry/Infectious disease/Vascular surgery ff BKA 12/18. s/p revision 12/[address] Sheridan, discussed with Dr. Sheridan d/c Morphine and continue [place] Patient has allergy to codeine/causes "swelling". Received morphine in ED without complication Hypertension As needed labetalol/hydralazine for elevated blood pressure. Diabetes mellitus type 2 -- uncontrolled a1C 10.5 Ketoacidosis- resolved Levemir 10 units in the morning and receiving 3 units R insulin. Sliding scale insulin/moderate Accu-Chek diabetes education done at bedside- Continue ADA diet. Leukocytosis, resolved. Monitor CBC daily. Hypokalemia: 50 meq KCL eff x 1 now. Hypophosphatemia, resolved. Hypo-magnesium, resolved. GI prophylaxis: Protonix. Colace/PRN Senokot for bowel regimen DVT prophylaxis: SCDs/heparin to start 24 hours postop Problem Qualifiers (1) Osteomyelitis: Qualified Code: M86.9 - Osteomyelitis, unspecified site, unspecified type (2) DKA (diabetic ketoacidoses): Qualified Code: E13.10 - Diabetic ketoacidosis without coma associated with other specified diabetes mellitus (3) Hypertension: Qualified Code: I10 - Essential hypertension (4) Leukocytosis (leucocytosis): Qualified Code: D72.829 - Leukocytosis, unspecified type (5) Sepsis: Qualified Code: A41.9 - Sepsis, due to unspecified organism Oliver Callahan MD December 22, 2016 13:34
--- NOTE | 2016-12-22 13:37 | HHI.PR ---
Subjective Remarks Follow-up left JAE 12/22/16-patient seen and examined, reports improvement of nausea and has now increased by mouth intake. Blood glucose elevated Objective Vitals Vital Signs Date Time Temp Pulse Resp B/P Pulse Ox O2 Delivery O2 Flow Rate FiO2 12/22/16 12:00 97.3 90 17 160/72 93 12/22/16 08:42 Room Air 12/22/16 08:00 97.8 92 17 141/65 92 12/22/16 04:00 98.2 76 17 127/68 96 12/22/16 00:00 97.6 82 17 131/64 96 12/21/16 20:00 98.8 97 17 143/67 93 12/21/16 16:00 100.0 93 16 155/70 93 I/O 12/21/16 12/21/16 12/21/16 12/22/16 12/22/16 12/22/16 07:00 15:00 23:00 07:00 15:00 23:00 Intake Total 240 ml 640 ml 240 ml 240 ml Output Total 650 ml 500 ml 600 ml 300 ml Balance -410 ml 140 ml -360 ml -60 ml Intake Oral 240 ml 240 ml 240 ml 240 ml IV Total 400 ml Output Urine Total 650 ml 500 ml 600 ml 300 ml # Bowel Movements 0 Result Diagram: 12/22/16 0510 12/22/16 0510 Imaging Last Impressions Foot MRI 12/15/16 1325 Signed Impressions: Service Date/Time: Thursday, December 15, 2016 14:22 - CONCLUSION: 1. Soft tissue ulceration and numerous gas collections in the soft tissues of the forefoot and midfoot most characteristic of a necrotizing type cellulitis. 2. Osteomyelitis of the distal fourth and fifth metatarsals and possibly the proximal phalanx of the fifth toe. Remote fracture second toe. 3. No drainable fluid collections within the foot. Blair Franklin MD Foot X-Ray 12/15/16 0000 Signed Impressions: Service Date/Time: Thursday, December 15, 2016 12:25 - CONCLUSION: 1. Soft tissue swelling in extensive gas in the soft tissues consistent with the known infection. 2. No definite destructive change or osteomyelitis. 3. Osteoarthritic change. Yousuf Walton MD Chest X-Ray 12/15/16 0000 Signed Impressions: Service Date/Time: Thursday, December 15, 2016 17:01 - CONCLUSION: 1. No active disease. Mildly tortuous and atherosclerotic aorta. Blair Franklin MD Objective Remarks GENERAL: NAD SKIN: Warm and dry. HEAD: Normocephalic. EYES: No scleral icterus. No injection or drainage. NECK: Supple, trachea midline. No JVD or lymphadenopathy. CARDIOVASCULAR: Regular rate and rhythm without murmurs, gallops, or rubs. RESPIRATORY: Breath sounds equal bilaterally. No accessory muscle use. GASTROINTESTINAL: Abdomen soft, non-tender, nondistended. MUSCULOSKELETAL: No cyanosis, or edema. Left BKA BACK: Nontender without obvious deformity. No CVA tenderness. A/P Problem List: (1) Diabetic infection of left foot ICD Code: E11.69 Status: Acute (2) Gas gangrene of foot ICD Code: A48.0 Status: Acute (3) Necrotizing cellulitis ICD Code: L03.90 Status: Acute (4) Osteomyelitis ICD Code: M86.9 Status: Acute (5) DKA (diabetic ketoacidoses) ICD Code: E13.10 Status: Acute (6) Hypokalemia ICD Code: E87.6 Status: Acute (7) Hypertension ICD Code: I10 Status: Acute (8) Leukocytosis (leucocytosis) ICD Code: D72.829 Status: Acute (9) Sepsis ICD Code: A41.9 Status: Acute Assessment and Plan 71-year-old female with Necrotizing fasciitis Likely osteomyelitis fourth fifth left foot metatarsal Clindamycin, Unasyn and vancomycin Blood cultures 2/wound cultures 12/15 growing group B beta strep. Podiatry/Infectious disease/Vascular surgery ff BKA 12/18. s/p revision 12/[address] Sheridan, continue [place] Hypertension As needed labetalol/hydralazine for elevated blood pressure. Diabetes mellitus type 2 -- uncontrolled a1C 10.5 Ketoacidosis- resolved Increase Levemir to 13 units today 12/22/16. Sliding scale insulin/moderate Accu-Chek diabetes education done at bedside- Continue ADA diet. Leukocytosis, resolved. Monitor CBC daily. Hypokalemia: Give 60 mEq potassium 1 now Hypophosphatemia, resolved. Hypo-magnesium, resolved. GI prophylaxis: Protonix. Colace/PRN Senokot for bowel regimen DVT prophylaxis: SCDs/restart heparin Problem Qualifiers (1) Osteomyelitis: Qualified Code: M86.9 - Osteomyelitis, unspecified site, unspecified type (2) DKA (diabetic ketoacidoses): Qualified Code: E13.10 - Diabetic ketoacidosis without coma associated with other specified diabetes mellitus (3) Hypertension: Qualified Code: I10 - Essential hypertension (4) Leukocytosis (leucocytosis): Qualified Code: D72.829 - Leukocytosis, unspecified type (5) Sepsis: Qualified Code: A41.9 - Sepsis, due to unspecified organism Oliver Callahan MD December 22, 2016 13:37
[2016-12-23] VITALS (7 sets, daily range): BP systolic 139–177; BP diastolic 63–80; PULSE 88–94; RESP 16–19; TEMP 96.9–99.6; O2SAT 92–97
[2016-12-23] MEDS: CHLORHEXIDINE GLUCONATE 2 % 1 PACK (2 CLOTHS) TOP SCH (04:00)
[2016-12-23] MEDS: HYDROmorphone HCL PF 1 MG/ML VIAL IV PRN ×2 (04:09→21:17)
[2016-12-23] MEDS: AMPICILLIN-SULBACTAM INJ 3 GM in SODIUM CHLORIDE 0.9% INJ 100 ML IV SCH ×4 (04:10→19:39)
[2016-12-23 05:42] LABS: AUTOMATED NEUTROPHIL # 10.8 TH/MM3 (1.8-7.7); BASOPHIL % 0.2 % (0.0-2.0); EOSINOPHIL # 0.1 TH/MM3 (0-0.4); EOSINOPHIL % 0.6 % (0.0-4.0); HEMATOCRIT 26.3 % (35.0-46.0); HEMO FLAGS DIFF FINAL; LYMPHOCYTE # 1.7 TH/MM3 (1.0-4.8); MEAN CORPUSCULAR HEMOGLOBIN 28.2 PG (27.0-34.0); MEAN CORPUSCULAR HGB CONC 33.9 % (32.0-36.0); MONO % 10.8 % (0.0-8.0); NEUT % 76.4 % (16.0-70.0); PLATELET COUNT 305 TH/MM3 (150-450); RED BLOOD COUNT 3.17 MIL/MM3 (4.00-5.30); RED CELL DISTRIBUTION WIDTH 13.9 % (11.6-17.2); WHITE BLOOD COUNT 14.2 TH/MM3 (4.0-11.0)
[2016-12-23 06:00] LABS: BICARBONATE 34.7 MEQ/L (21.0-32.0); POTASSIUM 4.2 MEQ/L (3.5-5.1)
[2016-12-23] MEDS: HEPARIN SODIUM - SQ 10,000 UNITS/ML VIAL SQ SCH ×2 (06:14→16:11)
[2016-12-23] MEDS: INSULIN NovoLIN REGULAR SUPPLEMENTAL SCALE SQ SCH ×4 (07:12→19:48)
[2016-12-23] MEDS: DOCUSATE SODIUM 100 MG CAP PO SCH ×2 (07:36→19:37)
[2016-12-23] MEDS: ENALAPRIL MALEATE 5 MG TAB PO SCH (07:36)
[2016-12-23] MEDS: PANTOPRAZOLE SOD 40 MG DELAYED RELEASE TAB PO SCH (07:36)
[2016-12-23] MEDS: SODIUM CHLORIDE 0.9% FLUSH 10 ML FLUSH IV FLUSH SCH ×2 (07:42→19:39)
[2016-12-23] MEDS: INSULIN DETEMIR 100 UNITS/ML VIAL SQ SCH (07:42)
--- NOTE | 2016-12-23 09:13 | HHI.PR ---
Subjective Remarks Follow-up left BKA 12/22/16-patient seen and examined, reports improvement of nausea and has now increased by mouth intake. Blood glucose elevated 12/23/16-patient seen and examined; blood glucose improved. Still with no bowel movement. Currently afebrile Objective Vitals Vital Signs Date Time Temp Pulse Resp B/P Pulse Ox O2 Delivery O2 Flow Rate FiO2 12/23/16 08:00 99.6 90 17 156/71 93 12/23/16 07:44 Room Air 12/23/16 04:00 99.0 89 18 142/65 92 12/23/16 00:00 98.7 93 16 139/63 92 12/22/16 20:00 100.1 99 18 147/69 92 12/22/16 19:14 100 12/22/16 16:00 97.5 92 17 157/72 93 12/22/16 12:00 97.3 90 17 160/72 93 I/O 12/22/16 12/22/16 12/22/16 12/23/16 12/23/16 12/23/16 07:00 15:00 23:00 07:00 15:00 23:00 Intake Total 240 ml 180 ml 220 ml 580 ml Output Total 300 ml 400 ml 500 ml Balance -60 ml -220 ml -280 ml 580 ml Intake Oral 240 ml 180 ml 120 ml 480 ml IV Total 100 ml 100 ml Output Urine Total 300 ml 400 ml 500 ml # Voids 100 # Bowel Movements 0 0 0 Result Diagram: 12/23/16 0503 12/23/16 0503 Objective Remarks GENERAL: NAD SKIN: Warm and dry. HEAD: Normocephalic. EYES: No scleral icterus. No injection or drainage. NECK: Supple, trachea midline. No JVD or lymphadenopathy. CARDIOVASCULAR: Regular rate and rhythm without murmurs, gallops, or rubs. RESPIRATORY: Breath sounds equal bilaterally. No accessory muscle use. GASTROINTESTINAL: Abdomen soft, non-tender, nondistended. MUSCULOSKELETAL: No cyanosis, or edema. Left BKA BACK: Nontender without obvious deformity. No CVA tenderness. A/P Problem List: (1) Diabetic infection of left foot ICD Code: E11.69 Status: Acute (2) Gas gangrene of foot ICD Code: A48.0 Status: Acute (3) Necrotizing cellulitis ICD Code: L03.90 Status: Acute (4) Osteomyelitis ICD Code: M86.9 Status: Acute (5) DKA (diabetic ketoacidoses) ICD Code: E13.10 Status: Acute (6) Hypokalemia ICD Code: E87.6 Status: Acute (7) Hypertension ICD Code: I10 Status: Acute (8) Leukocytosis (leucocytosis) ICD Code: D72.829 Status: Acute (9) Sepsis ICD Code: A41.9 Status: Acute Assessment and Plan 71-year-old female with Necrotizing fasciitis Likely osteomyelitis fourth fifth left foot metatarsal Clindamycin, Unasyn and vancomycin Blood cultures 2/wound cultures 12/15 growing group B beta strep. Podiatry/Infectious disease/Vascular surgery ff BKA 12/18. s/p revision 12/[address] Sheridan, continue [place] Hypertension As needed labetalol/hydralazine for elevated blood pressure. Diabetes mellitus type 2 -- uncontrolled a1C 10.5 Ketoacidosis- resolved Continue Levemir 13 units . Sliding scale insulin/moderate Accu-Chek diabetes education done at bedside- Continue ADA diet. Leukocytosis, resolved. Monitor CBC daily. Hypokalemia: Resolved Hypophosphatemia, resolved. Hypo-magnesium, resolved. Constipation: Lactulose 30 mg 1 now, continue other regimen GI prophylaxis: Protonix. Colace/PRN Senokot for bowel regimen DVT prophylaxis: SCDs/restart heparin Problem Qualifiers (1) Osteomyelitis: Qualified Code: M86.9 - Osteomyelitis, unspecified site, unspecified type (2) DKA (diabetic ketoacidoses): Qualified Code: E13.10 - Diabetic ketoacidosis without coma associated with other specified diabetes mellitus (3) Hypertension: Qualified Code: I10 - Essential hypertension (4) Leukocytosis (leucocytosis): Qualified Code: D72.829 - Leukocytosis, unspecified type (5) Sepsis: Qualified Code: A41.9 - Sepsis, due to unspecified organism Oliver Callahan MD December 23, 2016 09:13
[2016-12-23] MEDS ORDERED: LACTULOSE SYRUP 20 GM/30 ML CUP PO ONE (10:15)
[2016-12-23] MEDS: ONDANSETRON HCL 4 MG/2 ML VIAL IV PRN (21:20)
[2016-12-24] VITALS: BP 145/67; PULSE 98; RESP 18; TEMP 99.5; O2SAT 92
[2016-12-24] MEDS: HYDROmorphone HCL PF 1 MG/ML VIAL IV PRN ×2 (00:37→08:50)
[2016-12-24] MEDS: AMPICILLIN-SULBACTAM INJ 3 GM in SODIUM CHLORIDE 0.9% INJ 100 ML IV SCH ×4 (02:26→20:36)
[2016-12-24 04:00] VITALS: BP 144/66; PULSE 92; RESP 19; TEMP 98.6; O2SAT 93
[2016-12-24] MEDS: CHLORHEXIDINE GLUCONATE 2 % 1 PACK (2 CLOTHS) TOP SCH (04:00)
[2016-12-24] MEDS: HEPARIN SODIUM - SQ 10,000 UNITS/ML VIAL SQ SCH ×2 (05:59→17:02)
[2016-12-24] MEDS: INSULIN NovoLIN REGULAR SUPPLEMENTAL SCALE SQ SCH ×4 (06:05→20:40)
[2016-12-24 08:00] VITALS: BP 148/67; PULSE 93; RESP 17; TEMP 99.4; O2SAT 95
[2016-12-24] MEDS: INSULIN DETEMIR 100 UNITS/ML VIAL SQ SCH (08:36)
[2016-12-24] MEDS: PANTOPRAZOLE SOD 40 MG DELAYED RELEASE TAB PO SCH (08:37)
[2016-12-24] MEDS: DOCUSATE SODIUM 100 MG CAP PO SCH ×2 (08:37→20:36)
[2016-12-24] MEDS: ENALAPRIL MALEATE 5 MG TAB PO SCH (08:37)
[2016-12-24] MEDS: SODIUM CHLORIDE 0.9% FLUSH 10 ML FLUSH IV FLUSH SCH ×2 (08:38→20:36)
[2016-12-24] MEDS: ONDANSETRON HCL 4 MG/2 ML VIAL IV PRN (08:50)
--- NOTE | 2016-12-24 11:45 | PD.VS.PN ---
Subjective POD #: 4 Procedure(s): L completion BKA Subjective/Hospital Course Pt in bed alert denies vomiting Improved nausea Dressing to L BKA removed today (Saloni Peters) Objective Vitals/I&O Date Time Temp Pulse Resp B/P Pulse Ox O2 Delivery O2 Flow Rate FiO2 12/24/16 08:00 99.4 93 17 148/67 95 12/24/16 04:00 98.6 92 19 144/66 93 12/24/16 01:07 18 12/24/16 00:00 99.5 98 18 145/67 92 12/23/16 20:00 96.9 94 19 171/77 97 12/23/16 19:36 94 12/23/16 18:03 21 12/23/16 16:00 97.7 91 18 177/80 95 12/23/16 12:00 97.4 88 17 160/74 94 12/24/16 12/24/16 12/24/16 07:00 15:00 23:00 Intake Total 440 ml 120 ml Output Total 450 ml Balance -10 ml 120 ml Exam: GENERAL: A&OX3, NAD, GCS15 SKIN: Warm and dry. L BKA incision intact with staple closure, NO R/D/S/O MUSCULOSKELETAL: No cyanosis, or edema. Incisions: L BKA incision intact w/ staple closure No Redness, Drainage, Swelling or Odor present Laboratory Laboratory Tests Test 12/24/16 04:25 Creatinine 0.35 Estimat Glomerular Filtration 184 Rate (Saloni Peters) Assessment and Plan Plan Plan Recommend Vancomycin/Levaquin therapy for 2 weeks D/C [place] cath today Picc line Insertion for OP vanco therapy I have arranged for Stump protector w/ stocking to be placed today via prosthetists respiratory therapy technician Saloni LOPEZ [facility] [phone] Discharge Planning [facility] placement (Saloni Peters) Plan I agree with above A/P. Will follow at [facility] if discharged to this location. Physical therapy with stump protection at this point. Important to Continue antibiotics. Julio Sheridan DO, FACS [facility] /[place] (Julio Sheridan DO) Saloni Peters December 24, 2016 11:45 Julio Sheridan DO December 24, 2016 16:03
--- NOTE | 2016-12-24 11:56 | HHI.PR ---
Subjective Remarks Follow-up left BKA 12/22/16-patient seen and examined, reports improvement of nausea and has now increased by mouth intake. Blood glucose elevated 12/23/16-patient seen and examined; blood glucose improved. Still with no bowel movement. Currently afebrile 12/24/16-patient seen and examined, no BM yet. No other issues. Case discussed with vascular surgery' s REFRIGERATION MANAGER Objective Vitals Vital Signs Date Time Temp Pulse Resp B/P Pulse Ox O2 Delivery O2 Flow Rate FiO2 12/24/16 08:00 99.4 93 17 148/67 95 12/24/16 04:00 98.6 92 19 144/66 93 12/24/16 01:07 18 12/24/16 00:00 99.5 98 18 145/67 92 12/23/16 20:00 96.9 94 19 171/77 97 12/23/16 19:36 94 12/23/16 18:03 21 12/23/16 16:00 97.7 91 18 177/80 95 12/23/16 12:00 97.4 88 17 160/74 94 I/O 12/23/16 12/23/16 12/23/16 12/24/16 12/24/16 12/24/16 07:00 15:00 23:00 07:00 15:00 23:00 Intake Total 580 ml 240 ml 240 ml 440 ml 120 ml Output Total 750 ml 300 ml 450 ml Balance 580 ml -510 ml -60 ml -10 ml 120 ml Intake Oral 480 ml 240 ml 240 ml 240 ml 120 ml IV Total 100 ml 200 ml Output Urine Total 750 ml 300 ml 450 ml # Voids 100 # Bowel Movements 0 0 0 0 Result Diagram: 12/23/16 0503 12/24/16 0425 Imaging Last Impressions Foot MRI 12/15/16 1325 Signed Impressions: Service Date/Time: Thursday, December 15, 2016 14:22 - CONCLUSION: 1. Soft tissue ulceration and numerous gas collections in the soft tissues of the forefoot and midfoot most characteristic of a necrotizing type cellulitis. 2. Osteomyelitis of the distal fourth and fifth metatarsals and possibly the proximal phalanx of the fifth toe. Remote fracture second toe. 3. No drainable fluid collections within the foot. Blair Franklin MD Foot X-Ray 12/15/16 0000 Signed Impressions: Service Date/Time: Thursday, December 15, 2016 12:25 - CONCLUSION: 1. Soft tissue swelling in extensive gas in the soft tissues consistent with the known infection. 2. No definite destructive change or osteomyelitis. 3. Osteoarthritic change. Yousuf Walton MD Chest X-Ray 12/15/16 0000 Signed Impressions: Service Date/Time: Thursday, December 15, 2016 17:01 - CONCLUSION: 1. No active disease. Mildly tortuous and atherosclerotic aorta. Blair Franklin MD Objective Remarks GENERAL: NAD SKIN: Warm and dry. HEAD: Normocephalic. EYES: No scleral icterus. No injection or drainage. NECK: Supple, trachea midline. No JVD or lymphadenopathy. CARDIOVASCULAR: Regular rate and rhythm without murmurs, gallops, or rubs. RESPIRATORY: Breath sounds equal bilaterally. No accessory muscle use. GASTROINTESTINAL: Abdomen soft, non-tender, nondistended. MUSCULOSKELETAL: No cyanosis, or edema. Left BKA BACK: Nontender without obvious deformity. No CVA tenderness. Procedures Incision and drainage of abscess left foot with resection of necrotic tissue below the fascial level. 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 Revision of left ankle disarticulation 12/20/16 A/P Problem List: (1) Diabetic infection of left foot ICD Code: E11.69 Status: Acute (2) Gas gangrene of foot ICD Code: A48.0 Status: Acute (3) Necrotizing cellulitis ICD Code: L03.90 Status: Acute (4) Osteomyelitis ICD Code: M86.9 Status: Acute (5) DKA (diabetic ketoacidoses) ICD Code: E13.10 Status: Acute (6) Hypokalemia ICD Code: E87.6 Status: Acute (7) Hypertension ICD Code: I10 Status: Acute (8) Leukocytosis (leucocytosis) ICD Code: D72.829 Status: Acute (9) Sepsis ICD Code: A41.9 Status: Acute Assessment and Plan 71-year-old female with Necrotizing fasciitis Likely osteomyelitis fourth fifth left foot metatarsal Clindamycin, Unasyn and vancomycin will discharge on vancomycin and Levaquin 2 weeks Blood cultures 2/wound cultures 12/15 growing group B beta strep. Podiatry/Infectious disease/Vascular surgery ff BKA 12/18. s/p revision 12/[address] Sheridan, continue [place] Hypertension As needed labetalol/hydralazine for elevated blood pressure. Diabetes mellitus type 2 -- uncontrolled a1C 10.5 Ketoacidosis- resolved Continue Levemir 13 units . Sliding scale insulin/moderate Accu-Chek diabetes education done at bedside- Continue ADA diet. Leukocytosis, resolved. Monitor CBC daily. Hypokalemia: Resolved Hypophosphatemia, resolved. Hypo-magnesium, resolved. Constipation: Lactulose 30 mg 1 on 12/23/16. Will give today. Enema 1 now, continue other regimen GI prophylaxis: Protonix. Colace/PRN Senokot for bowel regimen DVT prophylaxis: SCDs/ heparin Problem Qualifiers (1) Osteomyelitis: Qualified Code: M86.9 - Osteomyelitis, unspecified site, unspecified type (2) DKA (diabetic ketoacidoses): Qualified Code: E13.10 - Diabetic ketoacidosis without coma associated with other specified diabetes mellitus (3) Hypertension: Qualified Code: I10 - Essential hypertension (4) Leukocytosis (leucocytosis): Qualified Code: D72.829 - Leukocytosis, unspecified type (5) Sepsis: Qualified Code: A41.9 - Sepsis, due to unspecified organism Oliver Callahan MD December 24, 2016 11:56
[2016-12-24 12:00] VITALS: BP 145/70; PULSE 87; RESP 20; TEMP 97.6; O2SAT 96
[2016-12-24] MEDS ORDERED: SOD PHOSPHATE/SOD BIPHOSPHATE (ADULT) ENEMA 133ML PR ONE (12:15)
[2016-12-24] MEDS ORDERED: LEVEMIR SQ (13:37)
[2016-12-24] MEDS ORDERED: LEVA500T PO (13:37)
[2016-12-24] MEDS ORDERED: ENAL5TAB PO (13:37)
[2016-12-24] MEDS ORDERED: PERI8.6T PO (13:37)
[2016-12-24 16:00] VITALS: BP 165/73; PULSE 91; RESP 20; TEMP 99.1; O2SAT 96
[2016-12-24] MEDS ORDERED: SODIUM CHLORIDE 0.9% FLUSH 10 ML FLUSH IV FLUSH PRN (17:15)
--- NOTE | 2016-12-24 17:21 | RADRPT ---
EXAM DATE/TIME: 12/24/2016 16:49 [place] COMPARISON: CHEST SINGLE AP, December 15, 2016, 17:01. INDICATIONS : Post PICC line placement MEDICAL HISTORY : necrotizing cellulitis, sepsis SURGICAL HISTORY : None. ENCOUNTER: Initial ACUITY: 1 day PAIN SCORE: 0/10 LOCATION: Bilateral chest FINDINGS: A right PICC line has been placed. The PICC line appears to be in good position. There is no pneumoth orax. There are bibasilar infiltrates. The heart size is within normal limits. There may be a small l eft effusion. The bony structures are grossly intact. CONCLUSION: 1. Right PICC line in good position. No pneumothorax. 2. Bibasilar infiltrates. Loi Mahajan MD on December 24, 2016 at 17:18 Board Certified Radiologist. This report was verified electronically.
[2016-12-24 20:00] VITALS: BP 118/62; PULSE 74; RESP 20; TEMP 98.9; O2SAT 96
[2016-12-24] MEDS: SENNOSIDES 8.6 MG TAB PO PRN (20:36)
[2016-12-24] MEDS: oxyCODONE/ACETAMINOPHEN 5 MG/325 MG TAB PO PRN (23:00)
[2016-12-25] VITALS: BP 135/62; PULSE 89; RESP 19; TEMP 98.9; O2SAT 93
[2016-12-25] MEDS: CHLORHEXIDINE GLUCONATE 2 % 1 PACK (2 CLOTHS) TOP SCH (03:47)
[2016-12-25] MEDS: AMPICILLIN-SULBACTAM INJ 3 GM in SODIUM CHLORIDE 0.9% INJ 100 ML IV SCH ×2 (03:48→08:57)
[2016-12-25] MEDS: HEPARIN SODIUM - SQ 10,000 UNITS/ML VIAL SQ SCH (03:48)
[2016-12-25] MEDS: INSULIN NovoLIN REGULAR SUPPLEMENTAL SCALE SQ SCH ×2 (03:48→11:00)
[2016-12-25 04:00] VITALS: BP 163/70; PULSE 86; RESP 18; TEMP 97.9; O2SAT 92
[2016-12-25] MEDS: oxyCODONE/ACETAMINOPHEN 5 MG/325 MG TAB PO PRN ×2 (04:14→08:55)
[2016-12-25 08:00] VITALS: BP_SYST 157; BP_SYST 186; BP_DIAS 105; BP_DIAS 72; PULSE 75; RESP 18; TEMP 96.4; O2SAT 98
[2016-12-25] MEDS: DOCUSATE SODIUM 100 MG CAP PO SCH (08:56)
[2016-12-25] MEDS: SENNOSIDES 8.6 MG TAB PO PRN (08:56)
[2016-12-25] MEDS: PANTOPRAZOLE SOD 40 MG DELAYED RELEASE TAB PO SCH (08:56)
[2016-12-25] MEDS: ENALAPRIL MALEATE 5 MG TAB PO SCH (08:57)
--- NOTE | 2016-12-25 08:57 | HHI.PR ---
Subjective Remarks Follow-up left BKA 12/22/16-patient seen and examined, reports improvement of nausea and has now increased by mouth intake. Blood glucose elevated 12/23/16-patient seen and examined; blood glucose improved. Still with no bowel movement. Currently afebrile 12/24/16-patient seen and examined, no BM yet. No other issues. Case discussed with vascular surgery' s DEPARTMENT CHAIRPERSON 12/25/16-patient seen and examined, complains of sore ribs and states she was later dropped yesterday by DUMPSTER DRIVER as well as PT. still no BM Objective Vitals Vital Signs Date Time Temp Pulse Resp B/P Pulse Ox O2 Delivery O2 Flow Rate FiO2 12/25/16 08:00 96.4 75 18 186/105 98 12/25/16 04:00 97.9 86 18 163/70 92 12/25/16 00:00 98.9 89 19 135/62 93 12/24/16 20:00 98.9 74 20 118/62 96 12/24/16 16:00 99.1 91 20 165/73 96 12/24/16 12:00 97.6 87 20 145/70 96 I/O 12/24/16 12/24/16 12/24/16 12/25/16 12/25/16 12/25/16 07:00 15:00 23:00 07:00 15:00 23:00 Intake Total 440 ml 600 ml 240 ml 340 ml Output Total 450 ml 400 ml Balance -10 ml 200 ml 240 ml 340 ml Intake Oral 240 ml 600 ml 240 ml 240 ml IV Total 200 ml 0 ml 100 ml Output Urine Total 450 ml 400 ml # Voids 1 2 # Bowel Movements 0 0 0 0 Result Diagram: 12/23/16 0503 12/24/16 0425 Objective Remarks GENERAL: NAD SKIN: Warm and dry. HEAD: Normocephalic. EYES: No scleral icterus. No injection or drainage. NECK: Supple, trachea midline. No JVD or lymphadenopathy. CARDIOVASCULAR: Regular rate and rhythm without murmurs, gallops, or rubs. RESPIRATORY: Breath sounds equal bilaterally. No accessory muscle use. GASTROINTESTINAL: Abdomen soft, non-tender, nondistended. MUSCULOSKELETAL: No cyanosis, or edema. Left BKA BACK: Nontender without obvious deformity. No CVA tenderness. Procedures Incision and drainage of abscess left foot with resection of necrotic tissue below the fascial level. 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 Revision of left ankle disarticulation 12/20/16 A/P Problem List: (1) Diabetic infection of left foot ICD Code: E11.69 Status: Acute (2) Gas gangrene of foot ICD Code: A48.0 Status: Acute (3) Necrotizing cellulitis ICD Code: L03.90 Status: Acute (4) Osteomyelitis ICD Code: M86.9 Status: Acute (5) DKA (diabetic ketoacidoses) ICD Code: E13.10 Status: Acute (6) Hypokalemia ICD Code: E87.6 Status: Acute (7) Hypertension ICD Code: I10 Status: Acute (8) Leukocytosis (leucocytosis) ICD Code: D72.829 Status: Acute (9) Sepsis ICD Code: A41.9 Status: Acute Assessment and Plan 71-year-old female with Necrotizing fasciitis Likely osteomyelitis fourth fifth left foot metatarsal Clindamycin, Unasyn and vancomycin will discharge on vancomycin and Levaquin 2 weeks per request from vascular surgery Blood cultures 2/wound cultures 12/15 growing group B beta strep. Podiatry/Infectious disease/Vascular surgery ff BKA 12/18. s/p revision 12/[address] Sheridan, continue [place] Hypertension As needed labetalol/hydralazine for elevated blood pressure. Diabetes mellitus type 2 -- uncontrolled a1C 10.5 Ketoacidosis- resolved Continue Levemir 13 units . Sliding scale insulin/moderate Accu-Chek diabetes education done at bedside- Continue ADA diet. Leukocytosis, resolved. Monitor CBC daily. Hypokalemia: Resolved Hypophosphatemia, resolved. Hypo-magnesium, resolved. Constipation: Patient had no response to lactulose, Fleet enema. Will give mag citrate 1 now and continue other regimen GI prophylaxis: Protonix DVT prophylaxis: SCDs/ heparin Problem Qualifiers (1) Osteomyelitis: Qualified Code: M86.9 - Osteomyelitis, unspecified site, unspecified type (2) DKA (diabetic ketoacidoses): Qualified Code: E13.10 - Diabetic ketoacidosis without coma associated with other specified diabetes mellitus (3) Hypertension: Qualified Code: I10 - Essential hypertension (4) Leukocytosis (leucocytosis): Qualified Code: D72.829 - Leukocytosis, unspecified type (5) Sepsis: Qualified Code: A41.9 - Sepsis, due to unspecified organism Oliver Callahan MD December 25, 2016 08:57
[2016-12-25] MEDS: SODIUM CHLORIDE 0.9% FLUSH 10 ML FLUSH IV FLUSH SCH (08:59)
[2016-12-25] MEDS ORDERED: SODIUM CHLORIDE 0.9% FLUSH 10 ML FLUSH IV FLUSH SCH (09:00)
[2016-12-25] MEDS: INSULIN DETEMIR 100 UNITS/ML VIAL SQ SCH (09:12)
[2016-12-25] MEDS ORDERED: MAGNESIUM CITRATE SOLN 300 ML BTL PO ONE (11:00)
--- NOTE | 2016-12-25 11:42 | PD.VS.PN ---
Subjective POD #: 5 Procedure(s): L completion BKA Subjective/Hospital Course Pt in bed alert and in NAD Objective Vitals/I&O Date Time Temp Pulse Resp B/P Pulse Ox O2 Delivery O2 Flow Rate FiO2 12/25/16 09:55 18 12/25/16 08:00 96.4 75 18 157/72 98 12/25/16 04:00 97.9 86 18 163/70 92 12/25/16 00:00 98.9 89 19 135/62 93 12/24/16 20:00 98.9 74 20 118/62 96 12/24/16 16:00 99.1 91 20 165/73 96 12/24/16 12:00 97.6 87 20 145/70 96 12/25/16 12/25/16 12/25/16 06:59 14:59 22:59 Intake Total 340 ml Balance 340 ml Exam: A&OX3 NAD GCS15 L BKA w/ Stump stocking and protector intact Assessment and Plan Plan Plan Will see patient in our OPC for follow up Scheduled appointment time and date was given to pt Continue antibiotic therapy for 2 weeks total (Vanco/Levaquin) Saloni LOPEZ [facility] [phone] Discharge Planning Pt ready for D/c from a vascular standpoint [facility] placement Saloni Peters December 25, 2016 11:42
[2016-12-25 12:00] VITALS: BP 162/72; PULSE 94; RESP 18; TEMP 98.4; O2SAT 92
--- NOTE | 2016-12-25 12:39 | HHI.DS ---
Discharge Summary Admission Date December 15, 2016 at 16:13 Discharge Date: December 25, 2016 Admitting Diagnosis DKA, sepsis, necrotizing cellulitis, osteomyelitis (1) Diabetic infection of left foot ICD Code: E11.69 (2) Gas gangrene of foot ICD Code: A48.0 (3) Necrotizing cellulitis ICD Code: L03.90 (4) Osteomyelitis ICD Code: M86.9 (5) DKA (diabetic ketoacidoses) ICD Code: E13.10 (6) Hypokalemia ICD Code: E87.6 (7) Hypertension ICD Code: I10 (8) Leukocytosis (leucocytosis) ICD Code: D72.829 (9) Sepsis ICD Code: A41.9 Procedures Incision and drainage of abscess left foot with resection of necrotic tissue below the fascial level. 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 Date of admission 12/15/2016. Past medical history includes hypertension, diabetes mellitus and history of rheumatic fever. Approximately one month ago patient had an open sore to the medial aspect upper left foot. She has not had this treated. She has been feeling weak and is a very poor. The past several days. He has become more red and foul-smelling. She presented today to [facility] for evaluation treatment. In the ED, MRI of the left foot revealed necrotizing fasciitis with gas/ cellulitis of likely osteomyelitis of the distal fourth and fifth metatarsals of the left foot. She received vancomycin, clindamycin and Unasyn. Wound culture and blood cultures were performed. Podiatry is consulted and plan to take the or for debridement. EKG and chest x-ray pending. Coags pending. Also, elevated anion gap 17. Elevated beta hydroxybutyrate 5.6. Potassium 2.9. Potassium currently replaced. DKA protocol initiated with 5 units IV insulin followed by insulin drip CBC/BMP: 12/23/16 0503 12/24/16 0425 Significant Findings Laboratory Tests Test 12/23/16 12/24/16 05:03 04:25 White Blood Count 14.2 TH/MM3 (4.0-11.0) Red Blood Count 3.17 MIL/MM3 (4.00-5.30) Hemoglobin 8.9 GM/DL (11.6-15.3) Hematocrit 26.3 % (35.0-46.0) Neutrophils (%) (Auto) 76.4 % (16.0-70.0) Monocytes (%) (Auto) 10.8 % (0.0-8.0) Neutrophils # (Auto) 10.8 TH/MM3 (1.8-7.7) Monocytes # (Auto) 1.5 TH/MM3 (0-0.9) Chloride Level 96 MEQ/L (98-107) Carbon Dioxide Level 34.7 MEQ/L (21.0-32.0) Creatinine 0.36 MG/DL 0.35 MG/DL (0.50-1.00) (0.50-1.00) Random Glucose 177 MG/DL (74-106) Calcium Level 8.1 MG/DL (8.5-10.1) PE at Discharge GENERAL: NAD SKIN: Warm and dry. HEAD: Normocephalic. EYES: No scleral icterus. No injection or drainage. NECK: Supple, trachea midline. No JVD or lymphadenopathy. CARDIOVASCULAR: Regular rate and rhythm without murmurs, gallops, or rubs. RESPIRATORY: Breath sounds equal bilaterally. No accessory muscle use. GASTROINTESTINAL: Abdomen soft, non-tender, nondistended. MUSCULOSKELETAL: No cyanosis, or edema. Left BKA BACK: Nontender without obvious deformity. No CVA tenderness. Transfer Summary This is a 70-year-old female admitted with excising fashion left foot. Status post I&D by podiatry. Also with ketoacidosis since resolved. Hospital Course Necrotizing fasciitis Likely osteomyelitis fourth fifth left foot metatarsal Patient was treated with IV antibiotics however would be discharged on vancomycin starting in 12/26/16 and Levaquin 2 weeks per request from vascular surgery Blood cultures 2/wound cultures 12/15 growing group B beta strep. Podiatry/Infectious disease/Vascular surgery ff BKA 12/18. s/p revision 12/[address] Sheridan, continue [place] Hypertension As needed labetalol/hydralazine for elevated blood pressure. Diabetes mellitus type 2 -- uncontrolled a1C 10.5 Ketoacidosis- resolved Continue Levemir 13 units . Sliding scale insulin/moderate Accu-Chek diabetes education done at bedside- Continue ADA diet. Leukocytosis, resolved. Monitor CBC daily. Hypokalemia: Resolved Hypophosphatemia, resolved. Hypo-magnesium, resolved. Constipation: Patient had no response to lactulose, Fleet enema. Will give mag citrate 1 now and continue other regimen GI prophylaxis: Protonix DVT prophylaxis: SCDs/ heparin Pt Condition on Discharge: Stable Discharge Disposition: Rehab Inpatient Discharge Time: > 30 minutes Discharge Instructions DIET: Follow Instructions for: Diabetic Diet Activities you can perform: Regular-No Restrictions Follow up Referrals: PCP Follow-up - 2-3 Days New Medications: Levofloxacin (Levaquin) 500 Mg Tab 500 MG PO DAILY Infection #14 Ref 0 TAB Sennosides-Docusate Sodium (Verna-Colace) 8.6-50 Mg Tab 1 TAB PO BID PRN Constipation #60 Ref 0 TAB Enalapril (Enalapril) 5 Mg Tab 5 MG PO DAILY Blood Pressure Management #30 TAB Insulin Detemir Inj (Levemir Inj) 1,000 unit/ 10 ML Vial 13 UNITS SQ DAILY Blood Sugar Management #100 INJECTION Oliver Callahan MD December 25, 2016 12:39
[2016-12-25] MEDS ORDERED: Vancomycin Consult Pharmacy 1 EA OTHER SCH (12:45)
[2016-12-26] MEDS ORDERED: VANCOMYCIN INJ 1,250 MG in SODIUM CHLOR 0.9% 250 ML INJ 250 ML IV SCH (09:00)
[2016-12-26] MEDS ORDERED: VANCOMYCIN INJ 1,750 MG in SODIUM CHLORID 0.9% 500 ML INJ 500 ML IV SCH (09:00)
[2016-12-29] MEDS ORDERED: PHARMACY ORDERED LAB ONE (08:45)
[2017-01-15] MEDS ORDERED: LACT PO (08:42)
[2017-01-15] MEDS ORDERED: LEVEMIR SQ (08:42)
[2017-01-15] MEDS ORDERED: PERI8.6T PO (08:42)
[2017-01-15] MEDS ORDERED: PANT40TA3 PO (08:42)
[2017-01-15] MEDS ORDERED: SCOP1PAT2 T-DERMAL (08:42)
[2017-01-15] MEDS ORDERED: OXYC1TAB63 PO (08:42)
[2017-01-15] MEDS ORDERED: IPRASOL NEB (08:42)
[2017-01-15] MEDS ORDERED: GABA100C4 PO (08:42)
[2017-01-15] MEDS ORDERED: FERR325T20 PO (08:42)
[2017-01-15] MEDS ORDERED: TAMS5CAP PO (08:42)
[2017-01-15] MEDS ORDERED: ENAL10TA PO (08:42)
[2017-01-15] MEDS ORDERED: HEPA10003 SQ (08:42)
[2017-01-15] MEDS ORDERED: BUPR100T4 PO (08:42)
== END 2016-12-25 13:43 | DRG 853 ==
LOC: NEPC 11:06 → NEDA 16:13 → N03A 19:20 → N07B 12-16 19:33
PROVIDERS: ADMIT Internal Medicine Critical Care Medicine; ATTEND Hospitalist
PROC: 0JBR0ZZ Excision of Left Foot Subcutaneous Tissue and Fascia, Open Approach (ICD-10-PCS; 2016-12-15)
PROC: 0H9NXZZ Drainage of Left Foot Skin, External Approach (ICD-10-PCS; 2016-12-15)
PROC: 0Y6N0Z0 Detachment at Left Foot, Complete, Open Approach (ICD-10-PCS; 2016-12-18)
PROC: 0Y6J0Z1 Detachment at Left Lower Leg, High, Open Approach (ICD-10-PCS; principal; 2016-12-20 12:29)
PROC: 02HV33Z Insertion of Infusion Device into Superior Vena Cava, Percutaneous Approach (ICD-10-PCS; 2016-12-24)
DX: A41.9 Sepsis, unspecified organism (principal); A48.0 Gas gangrene; M72.6 Necrotizing fasciitis; E13.10 Other specified diabetes mellitus with ketoacidosis without coma; E11.52 Type 2 diabetes mellitus with diabetic peripheral angiopathy with gangrene; L02.612 Cutaneous abscess of left foot; M86.9 Osteomyelitis, unspecified; E11.69 Type 2 diabetes mellitus with other specified complication; E83.39 Other disorders of phosphorus metabolism; E83.42 Hypomagnesemia; E11.628 Type 2 diabetes mellitus with other skin complications; E87.6 Hypokalemia; K59.00 Constipation, unspecified; I10 Essential (primary) hypertension; B95.1 Streptococcus, group B, as the cause of diseases classified elsewhere; Z87.891 Personal history of nicotine dependence; Z88.5 Allergy status to narcotic agent
CPT/HCPCS: 36569; 71010; 73630; 73720; 76937; 80048; 80053; 80202; 82010; 82550; 82565; 82805; 82948; 83036; 83605; 83735; 84100; 84132; 85007; 85025; 85027; 85610; 85652; 85730; 86140; 86403; 86850; 86900; 86901; 87040; 87070; 87102; 87176; 87185; 87205; 87206; 87641; 88307; 88311; 93005; 94150; 96365; 96368; 96375; A9579; C1751; C9113; J0295; J0360; J1130; J1170; J1580; J1642; J1644; J1815; J1817; J2250; J2270; J2370; J2405; J2550; J2710; J3010; J3370; J3475; J3480; J7030; J7040; J7042; J7050; J8501

== ENCOUNTER 2017-01-26 22:15 | Emergency (ER) | payer MEDICARE ==
[~2017-01-26] VITALS: Ht 160 cm; Wt 74.0 kg
[~2017-01-26 22:15] MED LIST changes: +BUPR100T4 PO; +ENAL10TA PO; +FERR325T20 PO; +GABA100C4 PO; -GLIP5 PO; +HEPA10003 SQ; +IPRASOL NEB; +LACT PO; +LEVEMIR SQ; -LORT5TAB PO; -METF-324 PO; +OXYC1TAB63 PO; +PANT40TA3 PO; +PERI8.6T PO; +SCOP1PAT2 T-DERMAL; +TAMS5CAP PO
[2017-01-26 22:32] VITALS: BP 165/74; PULSE 94; RESP 18; TEMP 98.5; O2SAT 98
[2017-01-26] MEDS ORDERED: ACET325C (22:55)
[2017-01-26] MEDS ORDERED: VITA250T3 PO (22:55)
[2017-01-26] MEDS ORDERED: HUMALOG SQ (22:55)
[2017-01-26] MEDS ORDERED: MULTTAB67 PO (22:55)
[2017-01-26] MEDS ORDERED: ZINC220C3 PO (22:55)
[2017-01-26] MEDS ORDERED: APLI5INJ2 (22:55)
--- NOTE | 2017-01-26 23:00 | PD ---
HPI Chief Complaint: GI Complaint Time Seen by Provider: 22:55 Travel History International Travel<30 days: No Contact w/Intl Traveler<30days: No Traveled to known affect area: No History of Present Illness HPI 71-year-old female presents to the emergency department by EMS transport from [facility] for evaluation of 3 days of nausea vomiting and abdominal pain. Patient is a diabetic. Patient recently was transferred from [facility] to [facility] within the past week. 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 Patient states she has done well except for episodes of urinary retention and being on antibiotic for UTIs. Patient does not believe she is on antibiotic at this time. Patient states that she has had some bilious emesis but denies any coffee-ground emesis or hematemesis. Patient states she had a normal bowel movement yesterday. Patient has no shortness of breath no pleuritic pain or chest pain. Patient states as far she knows or diabetes has been well-controlled. PFSH Past Medical History Narrative Medical Diabetes diabetic neuropathy left BKA depression cholecystectomy glaucoma; no alcohol use tobacco use or substance use; nursing notes reviewed Arthritis: Yes (hands, back) Asthma: No Autoimmune Disease: No Blood Disorders: No Anxiety: No Depression: Yes (about current situation / loss of limb) Heart Rhythm Problems: No Cancer: No Cardiovascular Problems: No High Cholesterol: No Chest Pain: No Congestive Heart Failure: No Cerebrovascular Accident: No Diabetes: Yes (Pt states she was and then not, strong family hx. Pt no PMD for years) Patient Takes Glucophage: No Dialysis: No Diminished Hearing: Yes Diverticulitis: No Deep Vein Thrombosis: No Endocrine: No Fibromyalgia: No Gastrointestinal Disorders: No Genetic Disorder: No GERD: No Glaucoma: No Gout: Yes Genitourinary: No Headaches: Yes Hepatitis: No Hiatal Hernia: No Heparin Induced Thrombocytopen: No Herniated Disk: No Hypertension: No Immune Disorder: No Inguinal Hernia: No Implanted Vascular Access Dvce: No Insomnia: No Kidney Stones: No Musculoskeletal: No Neurologic: No Parkinson's Disease: No Psychiatric: No Reproductive: No Respiratory: No Resp. Syncytial Virus (RSV): No Migraines: No Myocardial Infarction: No Pancreatitis: No Pneumonia: No Radiation Therapy: No Renal Failure: No (sister currently) Schizophrenia: No Seizures: No Shingles: No Sickle Cell Disease: No Sleep Apnea: No Thyroid Disease: No Triglycerides - High: No Ulcer: No Menopausal: Yes Past Surgical History Abdominal Surgery: No AICD: No Arteriovenous Shunt: No Body Medical Devices: n/a Cardiac Surgery: No Cholecystectomy: Yes Ear Surgery: No Endocrine Surgery: No Eye Surgery: No Genitourinary Surgery: No Gynecologic Surgery: No (normal vaginal delivery / births x2) Insulin Pump: No Joint Replacement: No Neurologic Surgery: No Oral Surgery: Yes (extractions) Pacemaker: No Thoracic Surgery: No Family History Family Hypercholesterolemia: No Social History Alcohol Use: No Tobacco Use: No Substance Use: No Allergies-Medications (Allergen,Severity, Reaction): Coded Allergies: Codeine (Verified Allergy, Severe, 01/26/17) Morphine (Verified Adverse Reaction, Intermediate, Nausea/Vomiting, ) Reported Meds & Prescriptions Reported Meds & Active Scripts Active Flomax (Tamsulosin HCl) 0.4 Mg Cap 0.4 Mg PO DAILY@21 Transderm-Scop (Scopolamine) 1 Mg/3 Days Dis 1 Patch T-DERMAL Q3D Pantoprazole (Pantoprazole Sodium) 40 Mg Tab 40 Mg PO DAILY@06 Oxycodone-Acetaminophen 5-325 mg Tab 1 Tab PO Q4H PRN Acidophilus/l-Sporogenes (Lactobacillus Acidophilus) 1 Tab Tab 1 Tab PO TID Duoneb (Ipratropium-Albuterol Neb) 0.5-2.5 Mg/3 Ml Neb 1 Ampule NEB Q4HR WHILE AWAKE NEB 10 Days Heparin Sodium (Heparin Sodium (Porcine)) 10,000 Unit/Ml Inj 5,000 Units SQ Q12HR 10 Days Gabapentin 100 Mg Cap 100 Mg PO HS Ferosul (Ferrous Sulfate) 325 Mg Tablet 325 Mg PO BID@12,17 Bupropion HCl 100 Mg Tab 100 Mg PO Q8HR Enalapril (Enalapril Maleate) 10 Mg Tab 10 Mg PO DAILY Verna-Colace (Sennosides-Docusate Sodium) 8.6-50 Mg Tab 1 Tab PO BID PRN Levemir Inj (Insulin Detemir) 1,000 unit/ 10 ML Vial 10 Units SQ DAILY Reported Aplisol (Tuberculin Ppd) 5 Unit/0.1 Ml Inj Acetaminophen 325 Mg Capsule Humalog Inj (Insulin Human Lispro) 1,000 Unit/10 Ml Vial 1-9 Units SQ ACHS SLIDING SCALE Max dose at bedtime:( )units; sugars< 70,(0)units; sugars 150-199,(1)unit; sugars 200-249,(3)units; sugars 250-299,(5)units; sugars 300-349,(7)units; sugars more than 349,(9)units. Vitamin C (Ascorbic Acid) 250 Mg Tab 500 Mg PO Zinc Sulfate 220 Mg Cap 220 Mg PO DAILY Multiple Vitamin 1 Tab 1 Tab PO DAILY Review of Systems Except as stated in HPI: all other systems reviewed are Neg General / Constitutional: No: Fever, Chills HENT: No: Congestion Cardiovascular: No: Chest Pain or Discomfort Respiratory: No: Shortness of Breath Gastrointestinal: Positive: Nausea, Vomiting, Abdominal Pain, No: Diarrhea Genitourinary: No: Urgency, Frequency, Dysuria Musculoskeletal: No: Myalgias, Arthralgias Skin: No Rash Neurologic: No: Weakness Psychiatric: No: Anxiety, Depression Hematologic/Lymphatic: No: Easy Bruising Physical Exam Narrative GENERAL: Well-developed well-nourished female in no acute distress no respiratory distress SKIN: Warm and dry. HEAD: Normocephalic. EYES: No scleral icterus. No injection or drainage. NECK: Supple, trachea midline. No JVD or lymphadenopathy. CARDIOVASCULAR: Regular rate and rhythm without murmurs, gallops, or rubs. RESPIRATORY: Breath sounds equal bilaterally. No accessory muscle use. GASTROINTESTINAL: Abdomen soft, non-tender, nondistended. No guarding no rebound no palpable pulsatile mass. MUSCULOSKELETAL: No cyanosis, or edema. Left BKA with dressing/device in place dressing is dry; right dorsalis pedis pulse and bilateral radial pulse 2+ to palpation BACK: Nontender without obvious deformity. No CVA tenderness. Data Data Last Documented VS Vital Signs Date Time Temp Pulse Resp B/P Pulse Ox O2 Delivery O2 Flow Rate FiO2 01/27/17 00:38 84 16 139/67 97 Room Air 01/26/17 22:32 98.5 Orders Complete Blood Count With Diff (01/26/17 23:01) Comprehensive Metabolic Panel (01/26/17 23:01) Lipase (01/26/17 23:01) Urinalysis - C+S If Indicated (01/26/17 23:01) Iv Access Insert/Monitor (01/26/17 23:01) Ecg Monitoring (01/26/17 23:01) Oximetry (01/26/17 23:01) Sodium Chloride 0.9% Flush (Ns Flush) (01/26/17 23:15) Electrocardiogram (01/26/17 23:01) Troponin I (01/26/17 23:01) Creatine Kinase (Cpk) (01/26/17 23:01) Magnesium (Mg) (01/26/17 23:01) Ondansetron Inj (Zofran Inj) (01/26/17 23:15) Cath For Specimen (01/26/17 23:24) Urine Culture (01/26/17 23:45) Blood Culture (01/27/17 01:02) Ceftriaxone Inj (Rocephin Inj) (01/27/17 01:15) Sodium Chlorid 0.9% 500 Ml Inj (Ns 500 M (01/27/17 01:30) Blood Glucose (01/27/17 01:28) Labs Laboratory Tests Test 01/26/17 01/26/17 23:00 23:45 White Blood Count 7.4 TH/MM3 Red Blood Count 4.24 MIL/MM3 Hemoglobin 11.7 GM/DL Hematocrit 35.2 % Mean Corpuscular Volume 83.1 FL Mean Corpuscular Hemoglobin 27.6 PG Mean Corpuscular Hemoglobin 33.2 % Concent Red Cell Distribution Width 17.0 % Platelet Count 344 TH/MM3 Mean Platelet Volume 8.8 FL Neutrophils (%) (Auto) 71.6 % Lymphocytes (%) (Auto) 19.7 % Monocytes (%) (Auto) 6.2 % Eosinophils (%) (Auto) 1.8 % Basophils (%) (Auto) 0.7 % Neutrophils # (Auto) 5.3 TH/MM3 Lymphocytes # (Auto) 1.5 TH/MM3 Monocytes # (Auto) 0.5 TH/MM3 Eosinophils # (Auto) 0.1 TH/MM3 Basophils # (Auto) 0.1 TH/MM3 CBC Comment DIFF FINAL Differential Comment Sodium Level 135 MEQ/L Potassium Level 3.6 MEQ/L Chloride Level 98 MEQ/L Carbon Dioxide Level 26.7 MEQ/L Anion Gap 10 MEQ/L Blood Urea Nitrogen 19 MG/DL Creatinine 1.05 MG/DL Estimat Glomerular Filtration 52 ML/MIN Rate Random Glucose 192 MG/DL Calcium Level 9.1 MG/DL Magnesium Level 2.3 MG/DL Total Bilirubin 0.4 MG/DL Aspartate Amino Transf 16 U/L (AST/SGOT) Alanine Aminotransferase 38 U/L (ALT/SGPT) Alkaline Phosphatase 155 U/L Total Creatine Kinase 18 U/L Troponin I LESS THAN 0.02 NG/ML Total Protein 7.5 GM/DL Albumin 3.2 GM/DL Lipase 46 U/L Urine Color YELLOW Urine Turbidity HAZY Urine pH 6.0 Urine Specific [place] 1.009 Urine Protein NEG mg/dL Urine Glucose (UA) NEG mg/dL Urine Ketones NEG mg/dL Urine Occult Blood TRACE Urine Nitrite NEG Urine Bilirubin NEG Urine Urobilinogen LESS THAN 2.0 MG/DL Urine Leukocyte Esterase LARGE Urine RBC 1 /hpf Urine WBC 15 /hpf Urine WBC Clumps RARE Urine Squamous Epithelial <1 /hpf Cells Urine Bacteria MANY /hpf Microscopic Urinalysis Comment CATH-CULTURE IND MDM Medical Decision Making Medical Screen Exam Complete: Yes Emergency Medical Condition: Yes Medical Record Reviewed: Yes Interpretation(s) CBC & BMP Diagram 01/26/17 23:00 Vital Signs Date Time Temp Pulse Resp B/P Pulse Ox O2 Delivery O2 Flow Rate FiO2 01/27/17 00:38 84 16 139/67 97 Room Air 01/26/17 23:09 98 Room Air 01/26/17 22:32 98.5 94 18 165/74 98 UA: cath specimen knee bacteria white blood cells clumped white blood cells and leukocyte Estrace and: Culture indicated Differential Diagnosis Gastroenteritis, electrolyte disturbance, gastritis, peptic ulcer disease, dehydration, pancreatitis, uncontrolled diabetes, DKA, sepsis Narrative Course IV access obtained patient administered Zofran 4 mg IV specimens collected and sent for resulting Urine catheter specimen obtained and markedly abnormal with many bacteria positive white blood cells and clumped white blood cells; no glucosuria no ketonuria; lab values resulted patient identified to have normal range bicarbonate and anion gap; random glucose post prandial is 192. Total white cell count is within normal range with normal automated differential except neutrophil count of 31.2% Urinalysis again is regular abnormal patient administered IV Rocephin 1 g after blood cultures obtained Patient given trial of oral hydration Review of medical record indicates patient was to be on Levaquin for 14 days after discharge from rehabilitation facility 01/18/17 although patient does not have evidence of Levaquin on her OCT. Patient is tolerating oral hydration well. Patient will be given prescription for Levaquin. Patient also given alternate medication for nausea and/or vomiting. Diagnosis Primary Impression: UTI (urinary tract infection) Qualified Code: N39.0 - Urinary tract infection without hematuria, site unspecified Additional Impression: DM type 2 (diabetes mellitus, type 2) Referrals: Primary Care Physician 2 days Patient Instructions: General Instructions Additional Instructions: Encourage/increase fluid hydration Monitor blood sugars closely and follow sliding scale as directed Complete course of antibiotic as prescribed Monitor temperature every 4 hours with thermometer and administer as needed acetaminophen/Tylenol for fever 100.4F or greater Continue to administer as needed Zofran for nausea and/or vomiting or may administer as needed Phenergan suppository for breakthrough nausea and vomiting Follow-up with managing provider; contact in a.m. for ongoing rehabilitation management Return patient to the emergency department for any concerns or change in condition Med/Other Pt SpecificInfo: Prescription(s) given Scripts Promethazine Supp (Phenergan Supp)25 Mg Supp25 Mg RECTAL Q6H PRN (NAUSEA OR VOMITING) #7 SUPP Ref 0 Prov:Kenyatta Bryant MD 01/27/17 Levofloxacin (Levaquin)500 Mg Vuncbd311 Mg PO DAILY 7 Days Prov:Kenyatta Bryant MD 01/27/17 Kenyatta Bryant MD Jan 26, 2017 23:00
[2017-01-26 23:09] VITALS: O2SAT 98
[2017-01-26] MEDS ORDERED: SODIUM CHLORIDE 0.9% FLUSH 10 ML FLUSH IV FLUSH PRN (23:15)
[2017-01-26] MEDS ORDERED: ONDANSETRON HCL 4 MG/2 ML VIAL IV PUSH ONE (23:15)
[2017-01-26 23:37] LABS: AUTOMATED NEUTROPHIL # 5.3 TH/MM3 (1.8-7.7); BASOPHIL # 0.1 TH/MM3 (0-0.2); BASOPHIL % 0.7 % (0.0-2.0); EOSINOPHIL # 0.1 TH/MM3 (0-0.4); EOSINOPHIL % 1.8 % (0.0-4.0); HEMATOCRIT 35.2 % (35.0-46.0); HEMO FLAGS DIFF FINAL; LYMPH % 19.7 % (9.0-44.0); LYMPHOCYTE # 1.5 TH/MM3 (1.0-4.8); MEAN CELL VOLUME 83.1 FL (80.0-100.0); MEAN CORPUSCULAR HEMOGLOBIN 27.6 PG (27.0-34.0); MEAN CORPUSCULAR HGB CONC 33.2 % (32.0-36.0); MONO % 6.2 % (0.0-8.0); NEUT % 71.6 % (16.0-70.0); PLATELET COUNT 344 TH/MM3 (150-450); RED BLOOD COUNT 4.24 MIL/MM3 (4.00-5.30); WHITE BLOOD COUNT 7.4 TH/MM3 (4.0-11.0)
[2017-01-27 00:10] LABS: ALT (GPT) 38 U/L (10-53); ANION GAP 10 MEQ/L (5-15); BICARBONATE 26.7 MEQ/L (21.0-32.0); BLOOD UREA NITROGEN 19 MG/DL (7-18); CHLORIDE 98 MEQ/L (98-107); MAGNESIUM 2.3 MG/DL (1.5-2.5); POTASSIUM 3.6 MEQ/L (3.5-5.1); SODIUM (NA) 135 MEQ/L (136-145)
[2017-01-27 00:11] LABS: AST (GOT) 16 U/L (15-37); GLOMERULAR FILTRATION RATE 52 ML/MIN (>89); TOTAL BILIRUBIN ADULT 0.4 MG/DL (0.2-1.0)
[2017-01-27 00:13] LABS: ALKALINE PHOSPHATASE 155 U/L (45-117)
[2017-01-27 00:16] LABS: CREATINE KINASE 18 U/L (26-192)
[2017-01-27 00:38] VITALS: BP 139/67; PULSE 84; RESP 16; O2SAT 97
[2017-01-27 00:40] LABS: BACTERIA, URINE MANY /hpf; BLOOD, URINE TRACE (NEG); GLUCOSE,URINE NEG (NEG); KETONE, URINE NEG (NEG); NITRITE,URINE NEG (NEG); SQUAMOUS EPITHELIAL CELL URINE <1 /hpf (0-5); URINE COLOR YELLOW (YELLW/STRAW)
[2017-01-27 00:42] LABS: COMMENT (UR) CATH-CULTURE IND; CULTURE IF INDICATED CATH CULTURE IND
[2017-01-27] MEDS ORDERED: cefTRIAXone INJ 1,000 MG in SODIUM CHLORIDE 0.9% INJ 100 ML IV ONE (01:15)
[2017-01-27] MEDS ORDERED: SODIUM CHLORID 0.9% 500 ML INJ 500 ML IV ONE (01:30)
[2017-01-27] MEDS ORDERED: PROM1SUP7 RECTAL (02:35)
[2017-01-27] MEDS ORDERED: LEVA500T20 PO (02:35)
[2017-01-27 06:42] VITALS: BP 126/60; PULSE 88; RESP 16; O2SAT 98
[2017-01-27 07:36] VITALS: BP 132/68; PULSE 85; RESP 21; O2SAT 99
--- NOTE | 2017-01-27 12:13 | EKG ---
Date Performed: 01/26/2017 Time Performed: 23:17:35 PTAGE: 71 years EKG: Sinus rhythm NORMAL ECG PREVIOUS TRACING : 12/15/2016 16.39 Compared to prior tracing no significant change DOCTOR: Adrien Nicholson Interpretating Date/Time 01/27/2017 12:11:33
== END 2017-01-27 10:13 ==
LOC: NEPC 22:15
DX: N39.0 Urinary tract infection, site not specified (principal); B96.1 Klebsiella pneumoniae [K. pneumoniae] as the cause of diseases classified elsewhere; B96.5 Pseudomonas (aeruginosa) (mallei) (pseudomallei) as the cause of diseases classified elsewhere; E11.40 Type 2 diabetes mellitus with diabetic neuropathy, unspecified; Z79.4 Long term (current) use of insulin; H40.9 Unspecified glaucoma; Z89.512 Acquired absence of left leg below knee; H91.90 Unspecified hearing loss, unspecified ear; M10.9 Gout, unspecified
CPT/HCPCS: 80053; 81001; 82550; 83690; 83735; 84484; 85025; 87040; 87077; 87086; 87186; 93005; 96365; 96366; 96375; 99284; J0696; J2405; J7040; P9612